=== PATIENT | male | born 1940 | race Caucasian/White ===

== ENCOUNTER 2023-06-11 18:50 | Inpatient (IN) | payer MEDICARE, BC ==
--- NOTE | 2023-06-11 19:17 | ED ---
General Adult HPI - General Chief complaint: Nausea/Vomiting/Diarrhea Stated complaint: Nausea, vomiting Time Seen by Provider: 06/11/23 19:02 Source: patient, EMS, RN notes reviewed Mode of arrival: EMS Limitations: no limitations - History of Present Illness Initial comments: Patient is a pleasant 82-year-old male present to the emergency department v omiting. Onset of symptoms was today. Patient states he vomited at breakfast. Patient states he also vomited a couple times after that. Patient states he feels hungry now. No abdominal pain. No diarrhea or constipation. Patient states he has an occasional cough which is chronic for him and denies any dyspnea. - Related Data Allergies Allergy/AdvReac Type Severity Reaction Status Date / Time No Known Allergies Allergy Verified 06/11/23 19:04 Review of Systems ROS Statement: Those systems with pertinent positive or pertinent negative responses have been documented in the HPI. ROS Other: All systems not noted in ROS Statement are negative. Constitutional: Denies: fever, chills Eyes: Denies: eye pain ENT: Denies: ear pain Respiratory: Reports: as per HPI Cardiovascular: Denies: chest pain Endocrine: Denies: fatigue Gastrointestinal: Reports: nausea, vomiting. Denies: abdominal pain, diarrhea, constipation Genitourinary: Denies: dysuria Musculoskeletal: Denies: back pain Neurological: Denies: headache Past Medical History Past Medical History: Heart Failure, Pneumonia Additional Past Medical History / Comment(s): pt is a poor historian History of Any Multi-Drug Resistant Organisms: None Reported Past Surgical History: No Surgical Hx Reported Smoking Status: Never smoker Past Alcohol Use History: Occasional Past Drug Use History: None Reported General Exam Limitations: no limitations General appearance: alert, in no apparent distress Head exam: Present: normocephalic Eye exam: Present: normal appearance Neck exam: Present: normal inspection Respiratory exam: Present: wheezes. Absent: respiratory distress Cardiovascular Exam: Present: regular rate, normal rhythm GI/Abdominal exam: Present: soft. Absent: tenderness Extremities exam: Present: pedal edema (+1 bilateral). Absent: calf tenderness Neurological exam: Present: alert Psychiatric exam: Present: normal affect, normal mood Skin exam: Present: normal color Course Vital Signs 06/11/23 06/11/23 06/11/23 18:56 19:04 20:03 Temperature 98.3 F Pulse Rate 94 90 Respiratory 18 Rate Blood Pressure 99/59 O2 Sat by Pulse 89 L 93 L Oximetry 06/11/23 20:13 Temperature Pulse Rate 79 Respiratory Rate Blood Pressure O2 Sat by Pulse Oximetry - Reevaluation(s) Reevaluation #1: 06/11/23 20:21 Case was discussed with cardiology, Dr. Nixon including present presentation and EKG. EKGs were forwarded to him. He does not want Legal Support Assistant activated at this time and will wait on blood work. Patient still denies ever having any chest discomfort. EKG Findings - EKG Results: EKG: interpreted by ERMD (Inferior Q waves with ST elevation. ST depression in aVL. Pseudo right bundle astrid block V1 V2), sinus rhythm, normal axis Medical Decision Making - Medical Decision Making Repeat EKG also interpreted by myself shows probable sinus rhythm with a rate of 89. Normal axis. Inferior Q waves with some ST elevation. ST depression in aVL. Pseudo right bundle branch block V1 V2. Was pt. sent in by a medical professional or institution (, PA, PROCESS IMPROVEMENT MANAGER, urgent care, hospital, or half-way...) When possible be specific @ -Patient was sent from senior care Did you speak to anyone other than the patient for history (EMS, parent, family, police, friend...)? What history was obtained from this source @ -No Did you review nursing and triage notes (agree or disagree)? Why? @ -I reviewed and agree with nursing and triage notes Were old charts reviewed (outside hosp., previous admission, EMS record, old EKG, old radiological studies, urgent care reports/EKG's, half-way records)? Report findings @ -No old chart is available Differential Diagnosis (chest pain, altered mental status, abdominal pain women, abdominal pain men, vaginal bleeding, weakness, fever, dyspnea, syncope, headache, dizziness, GI bleed, back pain, seizure, CVA, palpatations, mental health, musculoskeletal)? @ -Differential Abdominal Pain Men: Appendicitis, cholecystitis, diverticulosis, ischemic bowel, pancreatitis, hepatitis, UTI, gastroenteritis, AAA, incarcerated hernia, bowel obstruction, constipation, inflammatory bowel, hepatitis, peptic ulcer disease, splenic infarction, perforated viscus, testicular torsion, this is not meant to be an all-inclusive list e EKG interpreted by me (3pts min.). @ -As above X-rays interpreted by me (1pt min.). @ -Chest x-ray shows no acute process CT interpreted by me (1pt min.). @ -None done U/S interpreted by me (1pt. min.). @ -None done What testing was considered but not performed or refused? (CT, X-rays, U/S, labs)? Why? @ -None What meds were considered but not given or refused? Why? @ -None Did you discuss the management of the patient with other professionals (professionals i.e. , PA, PROCESS IMPROVEMENT MANAGER, lab, RT, psych nurse, social services coordinator, patternmaker metal bench, teacher, ict help desk officer, continuous pillowcase cutter)? Give summary @ -Discussed with Dr. Nixon. Also discussed with sound physician, Dr. Macias who will admit covering [place] Was smoking cessation discussed for >3mins.? @ -No Was critical care preformed (if so, how long)? @ -No Were there social determinants of health that impacted care today? How? (Homelessness, low income, unemployed, alcoholism, drug addiction, transportation, low edu. Level, literacy, decrease access to med. care, shelter, rehab)? @ -No Was there de-escalation of care discussed even if they declined (Discuss DNR or withdrawal of care, Hospice)? DNR status @ -No What co-morbidities impacted this encounter? (DM, HTN, Smoking, COPD, CAD, Cancer, CVA, ARF, Chemo, Hep., AIDS, mental health diagnosis, sleep apnea, mor bid obesity)? @ -None Was patient admitted / discharged? Hospital course, mention meds given and ro juan manuel, prescriptions, significant lab abnormalities, going to OR and other pertinent info. @ -Patient reevaluated. Patient still has nausea however still denies chest discomfort. Patient will be admitted with cardiac consult. Heparin will be started. Undiagnosed new problem with uncertain prognosis? @ -No Drug Therapy requiring intensive monitoring for toxicity (Heparin, Nitro, Insulin, Cardizem)? @ -Patient will be placed on heparin drip Were any procedures done? @ -No Diagnosis/symptom? @ -Vomiting Acute, or Chronic, or Acute on Chronic? @ -Acute Uncomplicated (without systemic symptoms) or Complicated (systemic symptoms)? @ -Complicated by potential r cardiac involvement Side effects of treatment? @ -No Exacerbation, Progression, or Severe Exacerbation? @ -No Poses a threat to life or bodily function? How? (Chest pain, [place], [place], pneumonia, PE, COPD, DKA, ARF, appy, cholecystitis, CVA, Diverticulitis, Homicidal, Suicidal, threat to staff... and all critical care pts) @ -Potential cardiac involvement that could be causing symptoms and lead to further cardiac damage or life-threatening There is concern for possible sepsis at 2056 with UTI and elevated white blood cell count. Blood culture lactic acid and IV antibiotics have all been ordered. - Lab Data Result diagrams: 06/11/23 19:46 06/11/23 19:46 Lab Results 06/11/23 06/11/23 06/11/23 Range/Units 19:46 19:46 19:46 WBC 32.0 H (3.8-10.6) k/uL RBC 4.21 L (4.30-5.90) m/uL Hgb 12.5 L (13.0-17.5) gm/dL Hct 37.5 L (39.0-53.0) % MCV 89.2 (80.0-100.0) fL MCH 29.7 (25.0-35.0) pg MCHC 33.3 (31.0-37.0) g/dL RDW 15.9 H (11.5-15.5) % Plt Count 210 (150-450) k/uL MPV 8.5 PT 10.9 (10.0-12.5) sec INR 1.0 (<1.2) APTT 23.6 (22.0-30.0) sec Sodium 139 (137-145) mmol/L Potassium 3.5 (3.5-5.1) mmol/L Chloride 101 (98-107) mmol/L Carbon Dioxide 32 H (22-30) mmol/L Anion Gap 6 mmol/L BUN 60 H (9-20) mg/dL Creatinine 2.46 H (0.66-1.25) mg/dL Est GFR (CKD-EPI)AfAm 28 (>60 ml/min/1.73 sqM) Est GFR (CKD-EPI)NonAf 24 (>60 ml/min/1.73 sqM) Glucose 124 H (74-99) mg/dL Calcium 8.6 (8.4-10.2) mg/dL Total Bilirubin 1.1 (0.2-1.3) mg/dL AST 25 (17-59) U/L ALT 12 (4-49) U/L Alkaline Phosphatase 82 (38-126) U/L Troponin I (0.000-0.034) ng/mL NT-Pro-B Natriuret Pep 23138 pg/mL Total Protein 6.4 (6.3-8.2) g/dL Albumin 3.4 L (3.5-5.0) g/dL Amylase 43 (30-110) U/L Lipase 44 (23-300) U/L Urine Color Urine Appearance (Clear) Urine pH (5.0-8.0) Ur Specific [place] (1.001-1.035) Urine Protein (Negative) Urine Glucose (UA) (Negative) Urine Ketones (Negative) Urine Blood (Negative) Urine Nitrite (Negative) Urine Bilirubin (Negative) Urine Urobilinogen (<2.0) mg/dL Ur Leukocyte Esterase (Negative) Urine RBC (0-5) /hpf Urine WBC (0-5) /hpf Amorphous Sediment (None) /hpf Urine Bacteria (None) /hpf Influenza Type A (PCR) (Not Detectd) Influenza Type B (PCR) (Not Detectd) RSV (PCR) (Not Detectd) SARS-CoV-2 (PCR) (Not Detectd) 06/11/23 06/11/23 06/11/23 Range/Units 19:46 19:46 19:46 WBC (3.8-10.6) k/uL RBC (4.30-5.90) m/uL Hgb (13.0-17.5) gm/dL Hct (39.0-53.0) % MCV (80.0-100.0) fL MCH (25.0-35.0) pg MCHC (31.0-37.0) g/dL RDW (11.5-15.5) % Plt Count (150-450) k/uL MPV PT (10.0-12.5) sec INR (<1.2) APTT (22.0-30.0) sec Sodium (137-145) mmol/L Potassium (3.5-5.1) mmol/L Chloride (98-107) mmol/L Carbon Dioxide (22-30) mmol/L Anion Gap mmol/L BUN (9-20) mg/dL Creatinine (0.66-1.25) mg/dL Est GFR (CKD-EPI)AfAm (>60 ml/min/1.73 sqM) Est GFR (CKD-EPI)NonAf (>60 ml/min/1.73 sqM) Glucose (74-99) mg/dL Calcium (8.4-10.2) mg/dL Total Bilirubin (0.2-1.3) mg/dL AST (17-59) U/L ALT (4-49) U/L Alkaline Phosphatase (38-126) U/L Troponin I 0.066 H* (0.000-0.034) ng/mL NT-Pro-B Natriuret Pep pg/mL Total Protein (6.3-8.2) g/dL Albumin (3.5-5.0) g/dL Amylase (30-110) U/L Lipase (23-300) U/L Urine Color Colorless Urine Appearance Cloudy (Clear) Urine pH 8.0 (5.0-8.0) Ur Specific [place] 1.010 (1.001-1.035) Urine Protein Trace H (Negative) Urine Glucose (UA) Negative (Negative) Urine Ketones Negative (Negative) Urine Blood Trace H (Negative) Urine Nitrite Negative (Negative) Urine Bilirubin Negative (Negative) Urine Urobilinogen <2.0 (<2.0) mg/dL Ur Leukocyte Esterase Large H (Negative) Urine RBC 5 (0-5) /hpf Urine WBC >182 H (0-5) /hpf Amorphous Sediment Rare H (None) /hpf Urine Bacteria Occasional H (None) /hpf Influenza Type A (PCR) Not Detected (Not Detectd) Influenza Type B (PCR) Not Detected (Not Detectd) RSV (PCR) Not Detected (Not Detectd) SARS-CoV-2 (PCR) Not Detected (Not Detectd) Disposition Clinical Impression: Vomiting Disposition: ADMITTED IP TO THIS HOSP Is patient prescribed a controlled substance at d/c from ED?: No Time of Disposition: 20:44
[2023-06-11] MEDS: IPRATROPIUM-ALBUTEROL 3 ML NEB INHALATION STA (20:03)
[2023-06-11 20:07] LABS: ALT 12 U/L (4-49); AST 25 U/L (17-59); African American GFR (CKD) 28 (>60 ml/min/1.73 sqM); Albumin 3.4 g/dL (3.5-5.0); Alkaline Phosphatase 82 U/L (38-126); Amylase 43 U/L (30-110); Anion Gap 6 mmol/L; Blood Urea Nitrogen 60 mg/dL (9-20); Calcium 8.6 mg/dL (8.4-10.2); Carbon Dioxide 32 mmol/L (22-30); Chloride 101 mmol/L (98-107); Glucose 124 mg/dL (74-99); Lipase 44 U/L (23-300); Non-African American GFR(CKD) 24 (>60 ml/min/1.73 sqM); Potassium 3.5 mmol/L (3.5-5.1); Sodium 139 mmol/L (137-145); Total Bilirubin 1.1 mg/dL (0.2-1.3); Total Protein 6.4 g/dL (6.3-8.2)
[2023-06-11 20:10] LABS: Partial Thromboplastin Time 23.6 sec (22.0-30.0); Prothrombin Time 10.9 sec (10.0-12.5)
[2023-06-11 20:15] LABS: NT-Pro-B-Type Natriuretic Pept 10500 pg/mL
[2023-06-11] MEDS: ONDANSETRON 4 MG/2 ML VIAL IVP STA (20:22)
[2023-06-11] MEDS: FAMOTIDINE 20 MG/2 ML VIAL IV STA (20:23)
--- NOTE | 2023-06-11 20:35 | XR ---
EXAMINATION TYPE: XR chest 1V portable DATE OF EXAM: 06/11/2023 8:23 PM CLINICAL INDICATION:Male, 82 years old with history of abdominal pain; COMPARISON: None TECHNIQUE: XR chest 1V portable Frontal view of the chest. FINDINGS: Lungs/Pleura: There is no evidence of pleural effusion, focal consolidation, or pneumothorax. Pulmonary vascularity: Unremarkable. Heart/mediastinum: Cardiomediastinal silhouette is unremarkable. Musculoskeletal: No acute osseous pathology. IMPRESSION: No acute cardiopulmonary disease/process.
[2023-06-11 20:37] LABS: Basophils # (A) 0.1 k/uL (0-0.2); Basophils % (A) 0 %; Eosinophils # (A) 0.1 k/uL (0-0.7); Eosinophils % (A) 0 %; HCT 37.5 % (39.0-53.0); HGB 12.5 gm/dL (13.0-17.5); Lymphocytes # (A) 1.2 k/uL (1.0-4.8); Lymphocytes % (A) 4 %; MCH 29.7 pg (25.0-35.0); MCHC 33.3 g/dL (31.0-37.0); MCV 89.2 fL (80.0-100.0); Mean Platelet Volume 8.5; Monocytes # (A) 2.3 k/uL (0-1.0); Monocytes % (A) 7 %; Neutrophils # (A) 27.6 k/uL (1.3-7.7); Neutrophils % (A) 86 %; Platelet Count 210 k/uL (150-450); RBC 4.21 m/uL (4.30-5.90); RDW 15.9 % (11.5-15.5)
[2023-06-11] MEDS ORDERED: HEPARIN SODIUM 1,000 UN/ML (10ML VL) IV PRN (20:45)
[2023-06-11] MEDS ORDERED: NALOXONE 0.4 MG/ML 1 ML VIAL IV PRN (20:45)
[2023-06-11] MEDS ORDERED: ONDANSETRON 4 MG/2 ML VIAL IVP PRN (20:45)
[2023-06-11 20:52] LABS: Amorphous Sediment,Urine Rare /hpf; Appearance,Urine Cloudy (Clear); Bacteria,Urine Occasional /hpf; Bilirubin,Urine Negative (Negative); Blood,Urine Trace (Negative); Color,Urine Colorless; Glucose,Urine (UA) Negative (Negative); Ketones,Urine Negative (Negative); Leukocyte Esterase,Urine Large (Negative); Nitrite,Urine Negative (Negative); Protein,Urine Trace (Negative); RBC,Urine 5 /hpf (0-5); Urobilinogen,Urine <2.0 mg/dL (<2.0); WBC,Urine >182 /hpf (0-5)
[2023-06-11] MEDS: HEPARIN SODIUM 1,000 UN/ML (10ML VL) IV ONE (21:26)
[2023-06-11] MEDS: HEPARIN SOD,PORK IN 0.45% NACL 25,000 UNIT in 0.45% NACL 1 250ML.BAG IV SCH (21:27)
[2023-06-11] MEDS: SODIUM CHLORIDE 0.9% 1,000 ML IV SCH (21:28)
[2023-06-11] MEDS: PANTOPRAZOLE 40 MG/10 ML VIAL IV SCH (21:42)
[2023-06-12 02:36] LABS: Basophils # (A) 0.1 k/uL (0-0.2); Basophils % (A) 0 %; Eosinophils # (A) 0.1 k/uL (0-0.7); Eosinophils % (A) 0 %; HGB 10.9 gm/dL (13.0-17.5); Lymphocytes # (A) 1.3 k/uL (1.0-4.8); Lymphocytes % (A) 5 %; MCH 28.7 pg (25.0-35.0); MCV 89.8 fL (80.0-100.0); Mean Platelet Volume 8.2; Monocytes # (A) 1.2 k/uL (0-1.0); Monocytes % (A) 5 %; Neutrophils # (A) 22.7 k/uL (1.3-7.7); Neutrophils % (A) 89 %; Platelet Count 191 k/uL (150-450); RBC 3.79 m/uL (4.30-5.90); RDW 15.7 % (11.5-15.5); WBC 25.6 k/uL (3.8-10.6)
[2023-06-12 03:40] LABS: INR 1.1 (<1.2); Prothrombin Time 12.2 sec (10.0-12.5)
[2023-06-12 03:45] LABS: ALT 12 U/L (4-49); AST 20 U/L (17-59); African American GFR (CKD) 25 (>60 ml/min/1.73 sqM); Albumin 2.9 g/dL (3.5-5.0); Alkaline Phosphatase 72 U/L (38-126); Anion Gap 7 mmol/L; Blood Urea Nitrogen 58 mg/dL (9-20); Calcium 7.7 mg/dL (8.4-10.2); Carbon Dioxide 32 mmol/L (22-30); Chloride 102 mmol/L (98-107); Glucose 121 mg/dL (74-99); Non-African American GFR(CKD) 22 (>60 ml/min/1.73 sqM); Sodium 141 mmol/L (137-145); Total Bilirubin 0.7 mg/dL (0.2-1.3); Total Protein 5.7 g/dL (6.3-8.2)
[2023-06-12 03:52] LABS: Partial Thromboplastin Time 153.2 sec (22.0-30.0)
[2023-06-12 04:00] LABS: Potassium 2.7 mmol/L (3.5-5.1)
[2023-06-12] MEDS: SODIUM CHLORIDE 0.9% 1,000 ML IV SCH (04:29)
[2023-06-12] MEDS: POTASSIUM CHLORIDE 10 MEQ in WATER FOR INJECTION 1 100ML.BAG IVPB SCH (04:29)
--- NOTE | 2023-06-12 06:00 | P.HPIM ---
History of Present Illness H&P Date: 06/11/23 Chief Complaint: Evaluation for not feeling wellVomiting 82-year-old male with past medical history of CVA congestive heart failure Patient is a poor historian unable to provide any meaningful history at this time family not present at bedside History obtained by reviewing medical records and discussing the case with ED staff, patient was brought in for evaluation due to not feeling well today as he had some decreased p.o. intake and repeated vomiting throughout the day especially with meals. His daughter also noted worsening of his chronic cough for which she decided to bring him in for evaluation Patient when asked has no specific complaint he seems to be frustrated and upset for being in the hospital he reports that he is feeling well and should be sent home patient denies any headache chest pain or trouble breathing patient denies any nausea or vomiting denies any abdominal pain denies any changes in bowel or urinary habits Patient denies tobacco smoking illicit drugs or heavy alcohol review of systems Pertinent positives as noted in HPI. All other systems were reviewed and are negative on exam Constitutional: No acute distress, cooperative Eyes: Anicteric sclerae, moist conjunctiva, Pupils equal round reactive to light ENMT: NC/AT Oropharynx clear, no erythema, or exudates Neck: Supple, no masses, or JVD No carotid bruits No thyromegaly Lungs: Clear to auscultation Clear to percussion Normal respiratory effort, no accessory muscle use Cardiovascular: Heart regular in rate and rhythm, No murmurs, gallops, or rubs No peripheral edema Abdominal: Soft Nontender, no guarding, rebound or rigidity Abdomen moving with respiration Normoactive bowel sounds Skin: Dry skin of bilateral lower extremities Extremities: No digital cyanosis No clubbing Pedal pulses intact and symmetrical Radial pulses intact and symmetrical No calf tenderness Psychiatric: Alert and oriented to person, place Neuro Muscles Strength 4/5 in all 4 extremities Sensation to light touch grossly present throughout Cranial nerves II-XII grossly intact Past Medical History Past Medical History: Heart Failure, CVA/TIA, Dementia, GERD/Reflux, Hyperlipidemia, Hypertension, Memory Impairment, Pneumonia Additional Past Medical History / Comment(s): . History of Any Multi-Drug Resistant Organisms: None Reported Past Surgical History: No Surgical Hx Reported Smoking Status: Never smoker Past Alcohol Use History: None Reported Past Drug Use History: None Reported Medications and Allergies Home Medications Medication Instructions Recorded Confirmed Type Atorvastatin [Lipitor] 80 mg PO HS 06/11/23 06/11/23 History Clopidogrel [Plavix] 75 mg PO DAILY 06/11/23 06/11/23 History Divalproex [Depakote] 250 mg PO DAILY@1400 06/11/23 06/11/23 History Famotidine [Pepcid] 20 mg PO DAILY 06/11/23 06/11/23 History Furosemide [Lasix] 20 mg PO DAILY 06/11/23 06/11/23 History Lactulose [Constulose] 30 gm PO BID 06/11/23 06/11/23 History Levothyroxine Sodium 25 mcg PO DAILY 06/11/23 06/11/23 History Losartan Potassium 50 mg PO HS 06/11/23 06/11/23 History Rivastigmine Tartrate [Exelon] 4.5 mg PO BID 06/11/23 06/11/23 History metOLazone 5 mg PO [id number] 06/11/23 06/11/23 History Allergies Allergy/AdvReac Type Severity Reaction Status Date / Time No Known Allergies Allergy Verified 06/11/23 19:04 Physical Exam Vitals: Vital Signs Temp Pulse Pulse Resp BP BP Pulse Ox 06/12/23 00:00 97.4 F L 89 18 104/69 99 06/11/23 21:33 84 20 102/60 97 06/11/23 20:13 79 06/11/23 20:03 90 06/11/23 19:04 93 L 06/11/23 18:56 98.3 F 94 18 99/59 89 L Intake and Output 06/11/23 06/11/23 06/12/23 14:59 22:59 06:59 Output Total 650 Balance -650 Output: Urine 650 Other: Voiding Method Indwelling Catheter Weight 112.945 kg 112.945 kg Results CBC & Chem 7: 06/12/23 02:22 06/12/23 02:22 Labs: Abnormal Lab Results - Last 24 Hours (Table) 06/11/23 06/11/23 06/11/23 Range/Units 19:46 19:46 19:46 WBC 32.0 H (3.8-10.6) k/uL RBC 4.21 L (4.30-5.90) m/uL Hgb 12.5 L (13.0-17.5) gm/dL Hct 37.5 L (39.0-53.0) % RDW 15.9 H (11.5-15.5) % Neutrophils # 27.6 H (1.3-7.7) k/uL Monocytes # 2.3 H (0-1.0) k/uL Carbon Dioxide 32 H (22-30) mmol/L BUN 60 H (9-20) mg/dL Creatinine 2.46 H (0.66-1.25) mg/dL Glucose 124 H (74-99) mg/dL Plasma Lactic Acid [place] (0.7-2.0) mmol/L Troponin I 0.066 H* (0.000-0.034) ng/mL Albumin 3.4 L (3.5-5.0) g/dL Urine Protein (Negative) Urine Blood (Negative) Ur Leukocyte Esterase (Negative) Urine WBC (0-5) /hpf Amorphous Sediment (None) /hpf Urine Bacteria (None) /hpf 06/11/23 06/11/23 06/12/23 Range/Units 19:46 21:31 00:35 WBC (3.8-10.6) k/uL RBC (4.30-5.90) m/uL Hgb (13.0-17.5) gm/dL Hct (39.0-53.0) % RDW (11.5-15.5) % Neutrophils # (1.3-7.7) k/uL Monocytes # (0-1.0) k/uL Carbon Dioxide (22-30) mmol/L BUN (9-20) mg/dL Creatinine (0.66-1.25) mg/dL Glucose (74-99) mg/dL Plasma Lactic Acid [place] 2.4 H* (0.7-2.0) mmol/L Troponin I 0.127 H* (0.000-0.034) ng/mL Albumin (3.5-5.0) g/dL Urine Protein Trace H (Negative) Urine Blood Trace H (Negative) Ur Leukocyte Esterase Large H (Negative) Urine WBC >182 H (0-5) /hpf Amorphous Sediment Rare H (None) /hpf Urine Bacteria Occasional H (None) /hpf 06/12/23 06/12/23 Range/Units 02:22 02:22 WBC 25.6 H (3.8-10.6) k/uL RBC 3.79 L (4.30-5.90) m/uL Hgb 10.9 L (13.0-17.5) gm/dL Hct 34.0 L (39.0-53.0) % RDW 15.7 H (11.5-15.5) % Neutrophils # 22.7 H (1.3-7.7) k/uL Monocytes # 1.2 H (0-1.0) k/uL Carbon Dioxide (22-30) mmol/L BUN (9-20) mg/dL Creatinine (0.66-1.25) mg/dL Glucose (74-99) mg/dL Plasma Lactic Acid [place] 2.4 H* (0.7-2.0) mmol/L Troponin I (0.000-0.034) ng/mL Albumin (3.5-5.0) g/dL Urine Protein (Negative) Urine Blood (Negative) Ur Leukocyte Esterase (Negative) Urine WBC (0-5) /hpf Amorphous Sediment (None) /hpf Urine Bacteria (None) /hpf Thrombosis Risk Factor Assmnt - Choose All That Apply Each Factor Represents 1 point: Obesity (BMI >25), Swollen legs (current) Each Risk Factor Represents 3 Points: Age 75 years or older Thrombosis Risk Factor Assessment Total Risk Factor Score: 5 Thrombosis Risk Factor Assessment Level: High Risk Assessment and Plan Assessment: 82-year-old male with CVA, CHF, and dementia coming in as he was brought in by family for evaluation of repeated vomiting and not feeling well I discussed case with ED doctor and accepted the admission for severe sepsis secondary to UTI with acute kidney injury with anticipated length of stay more than 2 midnights Acute hypoxic respiratory failure Severe sepsis secondary to urinary tract infection UA positive for leukocyte esterase White count 32 heart rate upon presentation 94 Follow-up cultures Patient was started on Rocephin 2 g IV piggyback daily Supportive care Tylenol for fever IV fluid hydration normal saline 75 cc/h Chest x-ray no acute cardiopulmonary process Elevated troponin rule out NSTEMI Cardiology consult Cardiac monitoring Monitor vital signs EKG changes with ST elevation in inferior leads over lead III was discussed with cardiology no recommendations for immediate intervention at this time Continue with heparin drip Continue with aspirin Plavix and statin home medications Fall precautions Continue to trend troponins Acute kidney injury versus a component of CKD unknown baseline Creatinine 2.4 elevated BUN 60 Sodium 139 potassium 3.5 Suspect some component of dehydration Lactic acid 2.4 Start patient on IV fluid hydration with normal saline 75 cc/h due to history of CHF to avoid fluid overload Hold losartan due to unknown baseline renal function Hypokalemia Potassium 2.7 Replace IV 10 mEq/h x 4 Check potassium level and magnesium level in the morning Advanced dementia Fall precautions Continue Depakote Full code DVT prophylaxis on heparin drip for ACS protocol GI prophylaxis with Protonix 40 mg IV push daily
[2023-06-12] MEDS: LEVOTHYROXINE 25 MCG TAB PO SCH (06:30)
[2023-06-12 06:57] LABS: HCT 32.6 % (39.0-53.0); HGB 10.9 gm/dL (13.0-17.5); MCH 29.4 pg (25.0-35.0); MCHC 33.5 g/dL (31.0-37.0); MCV 87.9 fL (80.0-100.0); Mean Platelet Volume 8.4; Platelet Count 180 k/uL (150-450); RBC 3.71 m/uL (4.30-5.90); RDW 15.9 % (11.5-15.5); WBC 26.8 k/uL (3.8-10.6)
[2023-06-12 07:26] LABS: African American GFR (CKD) 24 (>60 ml/min/1.73 sqM); Anion Gap 10 mmol/L; Blood Urea Nitrogen 65 mg/dL (9-20); Calcium 7.9 mg/dL (8.4-10.2); Carbon Dioxide 30 mmol/L (22-30); Chloride 99 mmol/L (98-107); Glucose 118 mg/dL (74-99); Magnesium 2.2 mg/dL (1.6-2.3); Non-African American GFR(CKD) 21 (>60 ml/min/1.73 sqM); Potassium 3.4 mmol/L (3.5-5.1); Sodium 139 mmol/L (137-145)
[2023-06-12 07:51] LABS: Band Neutrophils % 5 %; Lymphocytes # (M) 1.07 k/uL (1.0-4.8); Metamyelocytes # (M) 1.07 k/uL (0); Metamyelocytes % 4 %; Monocytes # (M) 1.07 k/uL (0-1.0); Myelocytes # (M) 0.27 k/uL (0); Myelocytes % 1 %; Neutrophils % (M) 83 %; Nucleated Red Blood Cells 0 /100 WBC (0-0); Total Cells Counted 200
[2023-06-12] MEDS ORDERED: POTASSIUM CHLORIDE ER 20 MEQ TAB.ER PO STA (08:08)
[2023-06-12] MEDS ORDERED: metOLazone 5 MG TAB PO SCH (08:30)
[2023-06-12] MEDS ORDERED: FAMOTIDINE 20 MG TAB PO SCH (09:00)
[2023-06-12] MEDS: FUROSEMIDE 20 MG TAB PO SCH (09:22)
[2023-06-12] MEDS: ASPIRIN 81 MG PO SCH (09:22)
[2023-06-12] MEDS: CLOPIDOGREL 75 MG TAB PO SCH (09:22)
[2023-06-12] MEDS: LACTULOSE 20 GM/30 ML CUP PO SCH (09:23)
[2023-06-12] MEDS: RIVASTIGMINE TARTRATE 4.5 MG PO SCH (09:23)
--- NOTE | 2023-06-12 10:42 | P.PN ---
Subjective Progress Note Date: 06/12/23 82-year-old male with PMH of CHF, history of CVA, dementia, GERD, hypertension, dyslipidemia presents to the ED for decreased oral intake, nausea and vomiting throughout the day, worsening cough. In the ED, he underwent extensive evaluation. BP 99/59, HR 94, RR 18, T 98.3 F, 89% on RA. CBC showed WBC count 32, hemoglobin 12.5, hematocrit 37.5. Coag panel unremarkable. CMP showed bicarb 32, BUN 60, creatinine 2.46, glucose 124, albumin 3.4. Lactic acid 2.4. Troponin 0.066, 0.127, 0.145. BNP 39331. Urinalysis large leukocyte esterase with greater than 182 WBCs. Flu, RSV, COVID-[address] negative. [address] concerning for ST elevation in leads II III and AVF. CXR no acute process. Repeat CBC, Coag panel, CMP was done which was significant for WBC 25.6, hemoglobin 10.9, hematocrit 34, APTT 153.2, potassium 2.7, bicarb 32, BUN 58, creatinine 2.66, glucose 121, calcium 7.7, albumin 2.9. Mag 2.2. Lactic acid 2.4. Case was discussed with cardiology in the ED with no recommendations for immediate intervention at this time. Patient was started on Rocephin, IVF, heparin drip and admitted for further management and workup. 06/11 Patient was seen and examined. Lethargic but arousable. CBC WBC 26.8 Hg 10. 9 Hct 32.6. BMP K 3.4 BUN 65 Cr 2.77, glu 118, Ca 7.9. Lactic acid 1.4. Maintained on heparin drip. General: lethargic, no distress, appears at stated age Derm: warm, dry Head: atraumatic, normocephalic, symmetric Eyes: EOMI, no lid lag, anicteric sclera Mouth: no lip lesion, mucus membranes moist Cardiovascular: S1S2 reg, no murmur Lungs: CTA bilateral, no rhonchi, no rales , no accessory muscle use Abdominal: soft, nontender to palpation, no guarding, no appreciable organomegaly Ext: no gross muscle atrophy, no edema, no contractures Neuro: no focal neuro deficits Psych: Lethargic Based on my assessment of this patient, this patient meets a high complexity level of care. Patient has an acute diagnosis of UTI sepsis with EKG findings concerning for STEMI that poses a threat to life or bodily function. UTI sepsis: Rocephin 2g IV QD. Follow BCx. UCx ordered. NS at 75 cc/hr. Telemetr y monitoring. Troponin elevation with EKG concerning for ST elevation of leads II III AVF: Continue heparin drip at 12 units/kg/hr. ASA 81 mg PO QD. Plavix 75 mg PO QD. Lipitor 80 mg PO QHS. Echocardiogram ordered. Patient would benefit from beta mando and likely cath give EKG findings. Awaiting Cardiology recommendations. Severe hypokalemia: Status post 40 KCl meq IV. KCl 40 meq PO x 1 ordered today. JACKELYN on probable CKD: IV hydration as above. Judicious use of IVF given h/o CHF (unknown EF). Obtain Renal/bladder US. Chronic conditions: CHF, history of CVA, dementia, GERD, hypertension, dy slipidemia CODE STATUS: FULL CODE. DVT Prophylaxis: Heparin drip. GI Prophylaxis: Protonix IV Designated medical POA if patient is not able to make medical decisions for themselves: I have reviewed the following executive consultant notes: I have reviewed the results of the following tests: CBC, BMP, Lactic acid. I have ordered the following tests: Echo. UCx. CBC and BMP for tomorrow morning. I have discussed the care of this patient with the following independent historian: I have independently interpreted the following test below: EKG I have discussed the management of this patient with the following physician: Dr. Nixon. This patient has a high risk of morbidity due to the following reasons: Patient requires IV heparin which requires intensive monitoring for toxicity (coag panel) and bleeding. Objective - Vital Signs Vital signs: Vital Signs Temp 98.8 F 06/12/23 04:00 Pulse 70 06/12/23 04:00 Resp 18 06/12/23 04:00 BP 99/55 06/12/23 04:00 Pulse Ox 95 06/12/23 04:00 FiO2 Intake & Output 06/11/23 06/12/23 06/12/23 18:59 06:59 18:59 Intake Total 86.965 Output Total 950 Balance -863.035 Weight 112.945 kg 112.945 kg Intake: Intake, IV Titration 86.965 Amount Heparin Sod,Pork in 0.45% 86.965 NaCl 25,000 unit In 0.45 % NaCl 1 250ml.bag @ 12 UNITS/KG/HR 13.553 mls/hr IV .[id number] [facility] Rx#: [id number] Output: Urine 950 Other: Voiding Method Indwelling Catheter - Labs CBC & Chem 7: 06/12/23 06:43 06/12/23 06:43 Labs: Abnormal Lab Results - Last 24 Hours (Table) 06/11/23 06/11/23 06/11/23 Range/Units 19:46 19:46 19:46 WBC 32.0 H (3.8-10.6) k/uL RBC 4.21 L (4.30-5.90) m/uL Hgb 12.5 L (13.0-17.5) gm/dL Hct 37.5 L (39.0-53.0) % RDW 15.9 H (11.5-15.5) % Neutrophils # 27.6 H (1.3-7.7) k/uL Monocytes # 2.3 H (0-1.0) k/uL APTT (22.0-30.0) sec Potassium (3.5-5.1) mmol/L Carbon Dioxide 32 H (22-30) mmol/L BUN 60 H (9-20) mg/dL Creatinine 2.46 H (0.66-1.25) mg/dL Glucose 124 H (74-99) mg/dL Plasma Lactic Acid Collin (0.7-2.0) mmol/L Calcium (8.4-10.2) mg/dL Troponin I 0.066 H* (0.000-0.034) ng/mL Total Protein (6.3-8.2) g/dL Albumin 3.4 L (3.5-5.0) g/dL Urine Protein (Negative) Urine Blood (Negative) Ur Leukocyte Esterase (Negative) Urine WBC (0-5) /hpf Amorphous Sediment (None) /hpf Urine Bacteria (None) /hpf 06/11/23 06/11/23 06/12/23 Range/Units 19:46 21:31 00:35 WBC (3.8-10.6) k/uL RBC (4.30-5.90) m/uL Hgb (13.0-17.5) gm/dL Hct (39.0-53.0) % RDW (11.5-15.5) % Neutrophils # (1.3-7.7) k/uL Monocytes # (0-1.0) k/uL APTT (22.0-30.0) sec Potassium (3.5-5.1) mmol/L Carbon Dioxide (22-30) mmol/L BUN (9-20) mg/dL Creatinine (0.66-1.25) mg/dL Glucose (74-99) mg/dL Plasma Lactic Acid Collin 2.4 H* (0.7-2.0) mmol/L Calcium (8.4-10.2) mg/dL Troponin I 0.127 H* (0.000-0.034) ng/mL Total Protein (6.3-8.2) g/dL Albumin (3.5-5.0) g/dL Urine Protein Trace H (Negative) Urine Blood Trace H (Negative) Ur Leukocyte Esterase Large H (Negative) Urine WBC >182 H (0-5) /hpf Amorphous Sediment Rare H (None) /hpf Urine Bacteria Occasional H (None) /hpf 06/12/23 06/12/23 06/12/23 Range/Units 02:22 02:22 02:22 WBC 25.6 H (3.8-10.6) k/uL RBC 3.79 L (4.30-5.90) m/uL Hgb 10.9 L (13.0-17.5) gm/dL Hct 34.0 L (39.0-53.0) % RDW 15.7 H (11.5-15.5) % Neutrophils # 22.7 H (1.3-7.7) k/uL Monocytes # 1.2 H (0-1.0) k/uL APTT 153.2 H* (22.0-30.0) sec Potassium (3.5-5.1) mmol/L Carbon Dioxide (22-30) mmol/L BUN (9-20) mg/dL Creatinine (0.66-1.25) mg/dL Glucose (74-99) mg/dL Plasma Lactic Acid Collin (0.7-2.0) mmol/L Calcium (8.4-10.2) mg/dL Troponin I 0.145 H* (0.000-0.034) ng/mL Total Protein (6.3-8.2) g/dL Albumin (3.5-5.0) g/dL Urine Protein (Negative) Urine Blood (Negative) Ur Leukocyte Esterase (Negative) Urine WBC (0-5) /hpf Amorphous Sediment (None) /hpf Urine Bacteria (None) /hpf 06/12/23 06/12/23 06/12/23 Range/Units 02:22 02:22 06:43 WBC 26.8 H (3.8-10.6) k/uL RBC 3.71 L (4.30-5.90) m/uL Hgb 10.9 L (13.0-17.5) gm/dL Hct 32.6 L (39.0-53.0) % RDW 15.9 H (11.5-15.5) % Neutrophils # (1.3-7.7) k/uL Monocytes # (0-1.0) k/uL APTT (22.0-30.0) sec Potassium 2.7 L* (3.5-5.1) mmol/L Carbon Dioxide 32 H (22-30) mmol/L BUN 58 H (9-20) mg/dL Creatinine 2.66 H (0.66-1.25) mg/dL Glucose 121 H (74-99) mg/dL Plasma Lactic Acid Collin 2.4 H* (0.7-2.0) mmol/L Calcium 7.7 L (8.4-10.2) mg/dL Troponin I (0.000-0.034) ng/mL Total Protein 5.7 L (6.3-8.2) g/dL Albumin 2.9 L (3.5-5.0) g/dL Urine Protein (Negative) Urine Blood (Negative) Ur Leukocyte Esterase (Negative) Urine WBC (0-5) /hpf Amorphous Sediment (None) /hpf Urine Bacteria (None) /hpf 06/12/23 Range/Units 06:43 WBC (3.8-10.6) k/uL RBC (4.30-5.90) m/uL Hgb (13.0-17.5) gm/dL Hct (39.0-53.0) % RDW (11.5-15.5) % Neutrophils # (1.3-7.7) k/uL Monocytes # (0-1.0) k/uL APTT (22.0-30.0) sec Potassium 3.4 L (3.5-5.1) mmol/L Carbon Dioxide (22-30) mmol/L BUN 65 H (9-20) mg/dL Creatinine 2.77 H (0.66-1.25) mg/dL Glucose 118 H (74-99) mg/dL Plasma Lactic Acid Collin (0.7-2.0) mmol/L Calcium 7.9 L (8.4-10.2) mg/dL Troponin I (0.000-0.034) ng/mL Total Protein (6.3-8.2) g/dL Albumin (3.5-5.0) g/dL Urine Protein (Negative) Urine Blood (Negative) Ur Leukocyte Esterase (Negative) Urine WBC (0-5) /hpf Amorphous Sediment (None) /hpf Urine Bacteria (None) /hpf
[2023-06-12] MEDS ORDERED: Potassium Replacement Protocol 1 EACH MISC MISCELLANE PRN (11:10)
--- NOTE | 2023-06-12 12:38 | P.CRDCN ---
History of Present Illness Consult date: 06/12/23 Requesting physician: Sudeep Stone Reason for Consult (text): Cardiac Evaluation and Treatment Chief complaint: vomiting History of present illness: This is a pleasant 82-year-old gentleman with advanced dementia. He is quite confused and unable to answer questions appropriately and family is not at the bedside. HPI was obtained from the chart. He has a history of hypertension, dementia, CVA and congestive heart failure. He was apparently brought to the emergency department due to episodes of vomiting. Shortly after presentation the patient apparently said he was feeling better and requested to be sent home. Chest x-ray on admission showed no acute cardiopulmonary process. Labs showed significantly elevated white blood cell count 32,000. Labs also showed evidence of renal insufficiency, of unknown duration as there are no labs to compare with a BUN of 60 creatinine 2.46. NT proBNP is elevated at 10,500. Plasma lactic acid was 2.4. Urine shows evidence of UTI. Troponins been elevated at 0.066, 0.127, 0.145 and 0.162. There is no mention of chest discomfort and patient denies any complaints of chest discomfort. He has been afebrile and somewhat hypotensive. Upon examination he currently denies any complaints. He denies further vomiting. Denies any chest discomfort, palpitations, shortness of breath. He denies any orthopnea or PND. He denies any dizziness lightheadedness or syncope. Past Medical History Past Medical History: Heart Failure, CVA/TIA, Dementia, GERD/Reflux, Hyperlipidemia, Hypertension, Memory Impairment, Pneumonia Additional Past Medical History / Comment(s): . History of Any Multi-Drug Resistant Organisms: None Reported Past Surgical History: No Surgical Hx Reported Smoking Status: Never smoker Past Alcohol Use History: None Reported Past Drug Use History: None Reported Medications and Allergies Home Medications Medication Instructions Recorded Confirmed Type Atorvastatin [Lipitor] 80 mg PO HS@199906/11/23 06/12/23 History Clopidogrel [Plavix] 75 mg PO DAILY@79906/11/23 06/12/23 History Divalproex [Depakote] 250 mg PO DAILY@1400 06/11/23 06/12/23 History Famotidine [Pepcid] 20 mg PO DAILY@0806/11/23 06/12/23 History Furosemide [Lasix] 20 mg PO DAILY@0800 06/11/23 06/12/23 History Lactulose [Constulose] 20 gm PO BID@0800,199906/11/23 06/12/23 History Levothyroxine Sodium 25 mcg PO DAILY@0800 06/11/23 06/12/23 History Losartan Potassium 50 mg PO HS@199906/11/23 06/12/23 History Rivastigmine Tartrate [Exelon] 4.5 mg PO BID@08,199906/11/23 06/12/23 History metOLazone 5 mg PO DAILY@0730 06/11/23 06/12/23 History Acetaminophen Tab [Tylenol] 325 mg PO BID@0800,199906/12/23 06/12/23 History Ammonium Lactate Cream [Lac-Hydrin 1 applic TOPICAL BID@08,199906/12/23 06/12/23 History 12% Cream] Ascorbic Acid [Vitamin C] 1,000 mg PO BID@0800,199906/12/23 06/12/23 History Aspirin EC [Ecotrin Low Dose] 81 mg PO DAILY@0800 06/12/23 06/12/23 History Cholecalciferol [Vitamin D3 (125 125 mcg PO DAILY@0800 06/12/23 06/12/23 History Mcg = 5000 Iu)] Cranberry 450mg 450 mg PO BID@08,199906/12/23 06/12/23 History Lidocaine-Hydrocortisone 3-0.5% 1 applic RECTAL QID PRN 06/12/23 06/12/23 History Rectal Cream Liquacel 30 ml PO BID@08,199906/12/23 06/12/23 History Potassium Chloride ER [K-Dur 10] 10 meq PO DAILY@0800 06/12/23 06/12/23 History Sennosides/Docusate Sodium 2 tab PO BID@08,199906/12/23 06/12/23 History [Senna-S 8.6-50 mg Tablet] buPROPion [Wellbutrin] 100 mg PO DAILY@0800 06/12/23 06/12/23 History carvediloL [Coreg] 12.5 mg PO BID@0800,199906/12/23 06/12/23 History Allergies Allergy/AdvReac Type Severity Reaction Status Date / Time No Known Allergies Allergy Verified 06/12/23 08:37 Physical Exam Vitals: Vital Signs Temp Pulse Pulse Resp BP BP Pulse Ox 06/12/23 04:00 98.8 F 70 18 99/55 95 06/12/23 00:00 97.4 F L 89 18 104/69 99 06/11/23 21:33 84 20 102/60 97 06/11/23 20:13 79 06/11/23 20:03 90 06/11/23 19:04 93 L 06/11/23 18:56 98.3 F 94 18 99/59 89 L Intake and Output 06/11/23 06/12/23 06/12/23 22:59 06:59 14:59 Intake Total 86.965 Output Total 650 300 Balance -650 -213.035 Intake: Intake, IV Titration 86.965 Amount Heparin Sod,Pork in 0.45% 86.965 NaCl 25,000 unit In 0.45 % NaCl 1 250ml.bag @ 12 UNITS/KG/HR 13.553 mls/hr IV .[id number] [facility] Rx#: [id number] Output: Urine 650 300 Other: Voiding Method Indwelling Catheter Weight 112.945 kg 112.945 kg PHYSICAL EXAMINATION: This is a 82-year-old gentleman in no apparent distress at the time of my examination. VITAL SIGNS: Reviewed. HEENT: Head is atraumatic, normocephalic. Pupils are equal, round. Sclerae anicteric. Conjunctivae are clear. Mucous membranes of the mouth are moist. Neck is supple. [There is no elevated jugular venous pressure]. No carotid bruit is heard. CHEST EXAMINATION:[ Clear to auscultation bilaterally. No wheezes rales or rhonchi. Respirations even and nonlabored.] HEART EXAMINATION: [ Heart regular, positive S1 and S2. No S3. No S4. Systolic murmur. ] ABDOMEN: Soft, nontender. Bowel sounds are heard. No organomegaly noted. EXTREMITIES:[ 2+ peripheral pulses with evidence of trace peripheral edema and no calf tenderness noted]. NEUROLOGIC EXAMINATION: Patient is awake, alert and oriented x1. Results 06/12/23 06:43 06/12/23 06:43 Cardiac Enzymes 06/11/23 06/11/23 06/12/23 Range/Units 19:46 19:46 00:35 AST 25 (17-59) U/L Troponin I 0.066 H* 0.127 H* (0.000-0.034) ng/mL 06/12/23 06/12/23 06/12/23 Range/Units 02:22 02:22 06:43 AST 20 (17-59) U/L Troponin I 0.145 H* 0.162 H* (0.000-0.034) ng/mL Coagulation 06/11/23 06/12/23 Range/Units 19:46 02:22 PT 10.9 12.2 (10.0-12.5) sec APTT 23.6 153.2 H* (22.0-30.0) sec CBC 06/11/23 06/12/23 06/12/23 Range/Units 19:46 02:22 06:43 WBC 32.0 H 25.6 H 26.8 H (3.8-10.6) k/uL RBC 4.21 L 3.79 L 3.71 L (4.30-5.90) m/uL Hgb 12.5 L 10.9 L 10.9 L (13.0-17.5) gm/dL Hct 37.5 L 34.0 L 32.6 L (39.0-53.0) % Plt Count 210 191 180 (150-450) k/uL Comprehensive Metabolic Panel 06/11/23 06/12/23 06/12/23 Range/Units 19:46 02:22 06:43 Sodium 139 141 139 (137-145) mmol/L Potassium 3.5 2.7 L* 3.4 L (3.5-5.1) mmol/L Chloride 101 102 99 (98-107) mmol/L Carbon Dioxide 32 H 32 H 30 (22-30) mmol/L BUN 60 H 58 H 65 H (9-20) mg/dL Creatinine 2.46 H 2.66 H 2.77 H (0.66-1.25) mg/dL Glucose 124 H 121 H 118 H (74-99) mg/dL Calcium 8.6 7.7 L 7.9 L (8.4-10.2) mg/dL AST 25 20 (17-59) U/L ALT 12 12 (4-49) U/L Alkaline Phosphatase 82 72 (38-126) U/L Total Protein 6.4 5.7 L (6.3-8.2) g/dL Albumin 3.4 L 2.9 L (3.5-5.0) g/dL Current Medications Generic Name Dose Route Start Last Admin Trade Name Freq PRN Reason Stop Dose Admin Aspirin 81 mg 06/12/23 09:00 Aspirin 81 Mg PO DAILY [facility] Atorvastatin Calcium 80 mg 06/12/23 21:00 Atorvastatin 80 Mg Tab PO HS [facility] Clopidogrel Bisulfate 75 mg 06/12/23 09:00 Clopidogrel 75 Mg Tab PO DAILY [facility] Divalproex Sodium 250 mg 06/12/23 14:00 Divalproex 250 Mg Tablet.Dr PO DAILY@1400 [facility] Furosemide 20 mg 06/12/23 09:00 Furosemide 20 Mg Tab PO DAILY [facility] Heparin Sodium (Porcine) 0 unit 06/11/23 20:45 Heparin Sodium 1,000 Un/Ml (10ml Vl) IV PER PROTOCOL PRN Low PTT Protocol Heparin Sodium/Sodium Chloride 250 mls @ 13.553 mls/hr 06/11/23 20:45 04:56 25,000 unit/ Sodium Chloride IV 9 units/kg/hr .[id number] [facility] 10.165 mls/hr Titration Protocol 12 UNITS/KG/HR Ceftriaxone Sodium 2 gm/ 50 mls @ 100 mls/hr 06/13/23 09:00 Sodium Chloride IVPB Q24HR [facility] Protocol Sodium Chloride 1,000 mls @ 75 mls/hr 06/12/23 04:15 06/12/23 04:29 Saline 0.9% IV 75 mls/hr .[id number] [facility] Administration Lactulose 30 gm 06/12/23 09:00 Lactulose 20 Gm/30 Ml Cup PO BID [facility] Levothyroxine Sodium 25 mcg 06/12/23 07:00 06/12/23 06:30 Levothyroxine 25 Mcg Tab PO 25 mcg DAILY@0700 [facility] Administration Naloxone HCl 0.2 mg 06/11/23 20:45 Naloxone 0.4 Mg/Ml 1 Ml Vial IV Q2M PRN Opioid Reversal Non-Formulary Medication 4.5 mg 06/12/23 09:00 Rivastigmine Tartrate [Exelon] PO BID [facility] Ondansetron HCl 4 mg 06/11/23 20:45 Ondansetron 4 Mg/2 Ml Vial IVP Q8HR PRN Nausea And Vomiting Pantoprazole Sodium 40 mg 06/11/23 21:00 06/11/23 21:42 Pantoprazole 40 Mg/10 Ml Vial IV 40 mg DAILY [facility] Administration Intake and Output 06/11/23 06/12/23 06/12/23 22:59 06:59 14:59 Intake Total 86.965 Output Total 650 300 Balance -650 -213.035 Intake: Intake, IV Titration 86.965 Amount Heparin Sod,Pork in 0.45% 86.965 NaCl 25,000 unit In 0.45 % NaCl 1 250ml.bag @ 12 UNITS/KG/HR 13.553 mls/hr IV .[id number] [facility] Rx#: [id number] Output: Urine 650 300 Other: Voiding Method Indwelling Catheter Weight 112.945 kg 112.945 kg 06/12/23 06:43 06/12/23 06:43 Assessment and Plan Assessment: #1 UTI with sepsis #2 non-ST elevation DE #3 advanced dementia #4 history of CVA #5 history of CHF Plan: From cardiology's perspective we will obtain 2D echo with Doppler study to assess cardiac structure and function. At this time we do not feel the patient is a good candidate for aggressive cardiac workup. We will continue to follow the patient. We will treat the patient medically at this time and reevaluate once there is improvement in the sepsis. 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 Patient was seen and examined.
[2023-06-12] MEDS: POTASSIUM CHLORIDE ER 20 MEQ TAB.ER PO SCH (13:04)
[2023-06-12] MEDS: DIVALPROEX 250 MG TABLET.DR PO SCH (13:05)
--- NOTE | 2023-06-12 13:33 | US ---
EXAMINATION TYPE: US renals and bladder DATE OF EXAM: 06/12/2023 COMPARISON: NONE CLINICAL INDICATION: Male, 82 years old with history of JACKELYN; Abnormal labs EXAM MEASUREMENTS: Right Kidney: 9.9 x 4.4 x 4.6 cm Left Kidney: 12.0 x 5.4 x 5.8 cm Right Kidney: Appears smaller in size compared to contralateral kidney Left Kidney: No hydronephrosis or masses seen Bladder: Wilson catheter Bilateral Jets not seen due to wilson There is no evidence for hydronephrosis at this point in time. No nephrolithiasis is seen. No heather s are identified. IMPRESSION: 1. No evidence for obstructive uropathy. 2. Atrophic appearing right kidney. 3. Wilson catheter in place.
[2023-06-12] MEDS: ACETAMINOPHEN TAB 325 MG TAB PO PRN (20:51)
[2023-06-12] MEDS: carvediloL 12.5 MG TAB PO SCH (20:52)
[2023-06-12] MEDS: ATORVASTATIN 80 MG TAB PO SCH (20:52)
[2023-06-12] MEDS ORDERED: LOSARTAN 50 MG TAB PO SCH (21:00)
[2023-06-13 03:23] LABS: HCT 28.4 % (39.0-53.0); Hypochromasia Slight; MCH 28.4 pg (25.0-35.0); MCHC 31.6 g/dL (31.0-37.0); Mean Platelet Volume 9.2; Platelet Count 150 k/uL (150-450); RBC 3.15 m/uL (4.30-5.90); RDW 15.7 % (11.5-15.5); WBC 16.5 k/uL (3.8-10.6)
[2023-06-13 04:11] LABS: African American GFR (CKD) 21 (>60 ml/min/1.73 sqM); Anion Gap 8 mmol/L; Blood Urea Nitrogen 68 mg/dL (9-20); Calcium 6.8 mg/dL (8.4-10.2); Carbon Dioxide 23 mmol/L (22-30); Chloride 104 mmol/L (98-107); Glucose 110 mg/dL (74-99); Non-African American GFR(CKD) 18 (>60 ml/min/1.73 sqM); Sodium 135 mmol/L (137-145)
[2023-06-13] MEDS: POTASSIUM CHLORIDE ER 20 MEQ TAB.ER PO STA (05:26)
[2023-06-13] MEDS: ASPIRIN 81 MG PO SCH (08:32)
[2023-06-13] MEDS: POTASSIUM CHLORIDE 10 MEQ in WATER FOR INJECTION 1 100ML.BAG IVPB SCH (10:37)
--- NOTE | 2023-06-13 11:30 | P.NPCON ---
History of Present Illness - Reason for Consult acute renal failure - History of Present Illness Patient is an 20-year-old male with history of CHF, dementia, CVA who is admitted to the hospital with complaints of increased weakness, decreased oral intake and vomiting. History is obtained from chart review. Patient is currently having an echocardiogram performed. He does not communicate much. No prior history of kidney diseases. Serum creatinine 2.4 on initial admission and increased to 3.0 today. Patient has an indwelling Mccord catheter. Blood pressure has been low with systolic in the 90s. Maintained on angiotensin receptor blockers at home 24 hour urine output at 1400 mL. Maintained on normal saline at 75 mL an hour. Review of Systems As per HPI Past Medical History Past Medical History: Heart Failure, CVA/TIA, Dementia, GERD/Reflux, Hyperlipidemia, Hypertension, Memory Impairment, Pneumonia Additional Past Medical History / Comment(s): . History of Any Multi-Drug Resistant Organisms: None Reported Past Surgical History: No Surgical Hx Reported Smoking Status: Never smoker Past Alcohol Use History: None Reported Past Drug Use History: None Reported Medications and Allergies Home Medications Medication Instructions Recorded Confirmed Type Atorvastatin [Lipitor] 80 mg PO HS@199906/11/23 06/12/23 History Clopidogrel [Plavix] 75 mg PO DAILY@0800 06/11/23 06/12/23 History Divalproex [Depakote] 250 mg PO DAILY@1400 06/11/23 06/12/23 History Famotidine [Pepcid] 20 mg PO DAILY@0800 06/11/23 06/12/23 History Furosemide [Lasix] 20 mg PO DAILY@0800 06/11/23 06/12/23 History Lactulose [Constulose] 20 gm PO BID@08,199906/11/23 06/12/23 History Levothyroxine Sodium 25 mcg PO DAILY@0800 06/11/23 06/12/23 History Losartan Potassium 50 mg PO HS@199906/11/23 06/12/23 History Rivastigmine Tartrate [Exelon] 4.5 mg PO BID@0800,199906/11/23 06/12/23 History metOLazone 5 mg PO DAILY@0730 06/11/23 06/12/23 History Acetaminophen Tab [Tylenol] 325 mg PO BID@0800,199906/12/23 06/12/23 History Ammonium Lactate Cream [Lac-Hydrin 1 applic TOPICAL BID@0800,199906/12/23 06/12/23 History 12% Cream] Ascorbic Acid [Vitamin C] 1,000 mg PO BID@0800,199906/12/23 06/12/23 History Aspirin EC [Ecotrin Low Dose] 81 mg PO DAILY@0800 06/12/23 06/12/23 History Cholecalciferol [Vitamin D3 (125 125 mcg PO DAILY@0800 06/12/23 06/12/23 History Mcg = 5000 Iu)] Cranberry 450mg 450 mg PO BID@0800,199906/12/23 06/12/23 History Lidocaine-Hydrocortisone 3-0.5% 1 applic RECTAL QID PRN 06/12/23 06/12/23 History Rectal Cream Liquacel 30 ml PO BID@0800,199906/12/23 06/12/23 History Potassium Chloride ER [K-Dur 10] 10 meq PO DAILY@0800 06/12/23 06/12/23 History Sennosides/Docusate Sodium 2 tab PO BID@0800,199906/12/23 06/12/23 History [Senna-S 8.6-50 mg Tablet] buPROPion [Wellbutrin] 100 mg PO DAILY@0800 06/12/23 06/12/23 History carvediloL [Coreg] 12.5 mg PO BID@0800,199906/12/23 06/12/23 History Allergies Allergy/AdvReac Type Severity Reaction Status Date / Time No Known Allergies Allergy Verified 06/12/23 08:37 Physical Exam Vitals: Vital Signs Temp Pulse Resp BP BP Pulse Ox 06/13/23 11:19 70 16 102/64 94 L 06/13/23 08:00 98.1 F 80 16 109/54 98 06/13/23 05:34 97.6 F 06/13/23 04:00 97.6 F 76 22 106/64 93 L 06/13/23 02:00 71 18 06/13/23 00:00 98.9 F 71 18 91/55 100 06/12/23 20:20 102.4 F H 60 22 117/74 98 06/12/23 20:00 60 22 06/12/23 16:00 98.5 F 70 18 100/67 06/12/23 14:00 72 18 06/12/23 12:00 98.5 F 72 18 99/64 97 Intake and Output 06/12/23 06/13/23 06/13/23 22:59 06:59 14:59 Intake Total 296.133 138.552 Output Total 275 850 Balance 21.133 -850 138.552 Intake: Intake, IV Titration 56.133 138.552 Amount Heparin Sod,Pork in 0.45% 56.133 138.552 NaCl 25,000 unit In 0.45 % NaCl 1 250ml.bag @ 12 UNITS/KG/HR 13.553 mls/hr IV .[id number] [facility] Rx#: [id number] Oral 240 Output: Urine 275 850 Other: Voiding Method Indwelling Catheter Indwelling Catheter # Bowel Movements 1 Patient is comfortable. He is sleeping but arousable. Does not communicate much Examination of the heart S1 and S2 Examination of the lungs bilateral breath sounds are heard Abdomen is soft nontender obese Examination of lower extremities shows edema 1+ bilaterally Results - Lab Results Most recent lab results Calcium 6.8 mg/dL (8.4-10.2) L 06/13/23 03:13 Magnesium 2.2 mg/dL (1.6-2.3) 06/13/23 03:13 06/13/23 03:13 06/13/23 03:13 Assessment and Plan Assessment: 1. Acute kidney injury, ATN associated with hypotension in the setting of use of angiotensin receptor blockers. Currently with indwelling Mccord catheter and nonoliguric. Maintained on normal saline 2. Possible underlying chronic kidney disease. Previous labs not available for comparison 3. Hypokalemia associated with diuretics and decreased oral intake 4. History of CHF, currently not in failure 5. Pyuria, rule out UTI Plan: Continue saline DC Lasix Continue with ceftriaxone DC Coreg Repeat labs in a.m. Continue to hold angiotensin receptor blockers Replace potassium Thank you for the consultation. We will continue to follow the patient with you during his hospitalization
--- NOTE | 2023-06-13 11:38 | P.PN ---
Subjective HISTORY OF PRESENT ILLNESS: This is a pleasant 82-year-old gentleman with advanced dementia. He is quite confused and unable to answer questions appropriately and family is not at the bedside. HPI was obtained from the chart. He has a history of hypertension, dementia, CVA and congestive heart failure. He was apparently brought to the emergency department due to episodes of vomiting. Shortly after presentation the patient apparently said he was feeling better and requested to be sent home. Chest x-ray on admission showed no acute cardiopulmonary process. Labs showed significantly elevated white blood cell count 32,000. Labs also showed evidence of renal insufficiency, of unknown duration as there are no labs to compare with a BUN of 60 creatinine 2.46. NT proBNP is elevated at 10,500. Plasma lactic acid was 2.4. Urine shows evidence of UTI. Troponins been elevated at 0.066, 0.127, 0.145 and 0.162. There is no mention of chest discomfort and patient denies any complaints of chest discomfort. He has been afebrile and somewhat hypotensive. Upon examination he currently denies any complaints. He denies further vomiting. Denies any chest discomfort, palpitations, shortness of breath. He denies any orthopnea or PND. He denies any dizziness lightheadedness or syncope. 06/13/2023 Patient examined this morning at the bedside. Patient remains somewhat confused. He appears to be resting comfortably in bed. He remains on IV heparin. No complaints of chest pain or pressure. Patient has been working with speech therapy this morning for possible aspiration. PHYSICAL EXAM: VITAL SIGNS: Reviewed. GENERAL: Well-developed in no acute distress. NECK: Supple. No JVD or thyromegaly LUNGS: Respirations even and unlabored. Lungs with mild expiratory wheezing noted HEART: Regular rate and rhythm. S1 and S2 heard. Systolic murmur noted. EXTREMITIES: Normal range of motion. No clubbing or cyanosis. Peripheral pulses intact. No lower extremity edema ASSESSMENT: Urinary tract infection with sepsis Non-STEMI History of CVA History of CHF Advanced dementia Possible aspiration PLAN: 2D echo has been ordered. Await results Continue current cardiac medications Discontinue IV heparin Patient is not a candidate for any invasive procedures such as cardiac catheterization. Continue with medical management at this time Further recommendations pending patient course Nurse practitioner note has been reviewed by physician. Signing provider agrees with the documented findings, assessment, and plan of care documented by ORDINARY SEAMAN as a scribe. Objective - Vital Signs Vital signs: Vital Signs Temp 98.1 F 06/13/23 08:00 Pulse 70 06/13/23 11:19 Resp 16 06/13/23 11:19 BP 102/64 06/13/23 11:19 Pulse Ox 94 L 06/13/23 11:19 FiO2 Intake & Output 06/12/23 06/13/23 06/13/23 18:59 06:59 18:59 Intake Total 694.850 34.128 138.552 Output Total 550 850 Balance 144.850 -815.872 138.552 Intake: Intake, IV Titration 104.850 34.128 138.552 Amount Heparin Sod,Pork in 0.45% 104.850 34.128 138.552 NaCl 25,000 unit In 0.45 % NaCl 1 250ml.bag @ 12 UNITS/KG/HR 13.553 mls/hr IV .[id number] [facility] Rx#: [id number] Oral 590 Output: Urine 550 850 Other: Voiding Method Indwelling Catheter Indwelling Catheter # Bowel Movements 1 1 - Labs CBC & Chem 7: 06/13/23 03:13 06/13/23 03:13 Labs: Abnormal Lab Results - Last 24 Hours (Table) 06/12/23 06/12/23 06/13/23 Range/Units 10:43 19:17 03:06 WBC (3.8-10.6) k/uL RBC (4.30-5.90) m/uL Hgb (13.0-17.5) gm/dL Hct (39.0-53.0) % RDW (11.5-15.5) % APTT 93.3 H 30.4 H 60.0 H (22.0-30.0) sec Sodium (137-145) mmol/L Potassium (3.5-5.1) mmol/L BUN (9-20) mg/dL Creatinine (0.66-1.25) mg/dL Glucose (74-99) mg/dL Calcium (8.4-10.2) mg/dL Troponin I (0.000-0.034) ng/mL 06/13/23 06/13/23 06/13/23 Range/Units 03:13 03:13 03:13 WBC 16.5 H (3.8-10.6) k/uL RBC 3.15 L (4.30-5.90) m/uL Hgb 9.0 L D (13.0-17.5) gm/dL Hct 28.4 L (39.0-53.0) % RDW 15.7 H (11.5-15.5) % APTT (22.0-30.0) sec Sodium 135 L (137-145) mmol/L Potassium 3.0 L (3.5-5.1) mmol/L BUN 68 H (9-20) mg/dL Creatinine 3.05 H (0.66-1.25) mg/dL Glucose 110 H (74-99) mg/dL Calcium 6.8 L (8.4-10.2) mg/dL Troponin I 0.058 H* (0.000-0.034) ng/mL
--- NOTE | 2023-06-13 12:59 | P.PN ---
Subjective Progress Note Date: 06/13/23 82-year-old male with PMH of CHF, history of CVA, dementia, GERD, hypertension, dyslipidemia presents to the ED for decreased oral intake, nausea and vomiting throughout the day, worsening cough. In the ED, he underwent extensive evaluation. BP 99/59, HR 94, RR 18, T 98.3 F, 89% on RA. CBC showed WBC count 32, hemoglobin 12.5, hematocrit 37.5. Coag panel unremarkable. CMP showed bicarb 32, BUN 60, creatinine 2.46, glucose 124, albumin 3.4. Lactic acid 2.4. Troponin 0.066, 0.127, 0.145. BNP 28637. Urinalysis large leukocyte esterase with greater than 182 WBCs. Flu, RSV, COVID-19 negative. [address] concerning for ST elevation in leads II III and AVF. CXR no acute process. Repeat CBC, Coag panel, CMP was done which was significant for WBC 25.6, hemoglobin 10.9, hematocrit 34, APTT 153.2, potassium 2.7, bicarb 32, BUN 58, creatinine 2.66, glucose 121, calcium 7.7, albumin 2.9. Mag 2.2. Lactic acid 2.4. Case was discussed with cardiology in the ED with no recommendations for immediate intervention at this time. Patient was started on Rocephin, IVF, heparin drip and admitted for further management and workup. 06/11 Patient was seen and examined. Lethargic but arousable. CBC WBC 26.8 Hg 10. 9 Hct 32.6. BMP K 3.4 BUN 65 Cr 2.77, glu 118, Ca 7.9. Lactic acid 1.4. Maintained on heparin drip. 06/12 Patient was seen and examined. Sleepy. No specific complaints. Cardiology note reviewed, not a good candidate for aggressive cardiac workup, obtain Echo, discontinue heparin drip. CBC WBC 16.5 Hg 9 Hct 28.4. APTT 60. BMP Na 135 K 3 BUN 68 Cr 3.05, glu 110, Ca 6.8. Troponin 0.058. Renal US atrophic right kidney no signs of obstruction. EKG with ST elevation in leads II III and aVF with PVCs. General: lethargic, no distress, appears at stated age Derm: warm, dry Head: atraumatic, normocephalic, symmetric Eyes: EOMI, no lid lag, anicteric sclera Mouth: no lip lesion, mucus membranes moist Cardiovascular: S1S2 reg, no murmur Lungs: CTA bilateral, no rhonchi, no rales , no accessory muscle use Abdominal: soft, nontender to palpation, no guarding, no appreciable organomegaly Ext: no gross muscle atrophy, no edema, no contractures Neuro: no focal neuro deficits Psych: Sleepy but easily arousable. Based on my assessment of this patient, this patient meets a high complexity level of care. Patient has an acute diagnosis of UTI sepsis with EKG findings concerning for STEMI that poses a threat to life or bodily function. UTI sepsis: Rocephin 2g IV QD. Follow BCx. UCx ordered. NS at 75 cc/hr. Telemetry monitoring. Troponin elevation with EKG concerning for ST elevation of leads II III AVF: Heparin drip discontinued. Troponin downtrending. ASA 81 mg PO QD. Plavix 75 mg PO QD. Lipitor 80 mg PO QHS. Echocardiogram ordered. Patient would benefit from cath give EKG findings. Cardiology on board. Severe hypokalemia: KCl 40 meq IV and 40 mq PO x 1 ordered today. Obtain Mag. JACKELYN on probable CKD: IV hydration as above. Judicious use of IVF given h/o CHF (unknown EF). No obstruction on renal US. Consult Nephrology. Chronic conditions: CHF, history of CVA, dementia, GERD, hypertension, dyslipidemia CODE STATUS: FULL CODE. DVT Prophylaxis: Heparin SQ GI Prophylaxis: Protonix IV Designated medical POA if patient is not able to make medical decisions for themselves: I have reviewed the following test consultant notes: Cardiology. I have reviewed the results of the following tests: CBC, BMP, Troponin. Renal US. I have ordered the following tests: Echo. UCx. CBC and BMP for tomorrow morning. I have discussed the care of this patient with the following independent historian: I have independently interpreted the following test below: EKG I have discussed the management of this patient with the following physician: Objective - Vital Signs Vital signs: Vital Signs Temp 98.1 F 06/13/23 08:00 Pulse 80 06/13/23 08:00 Resp 16 06/13/23 08:00 BP 109/54 06/13/23 08:00 Pulse Ox 98 06/13/23 08:00 FiO2 Intake & Output 03/17/24 03/18/24 03/18/24 18:59 06:59 18:59 Intake Total 694.850 34.128 138.552 Output Total 550 850 Balance 144.850 -815.872 138.552 Intake: Intake, IV Titration 104.850 34.128 138.552 Amount Heparin Sod,Pork in 0.45% 104.850 34.128 138.552 NaCl 25,000 unit In 0.45 % NaCl 1 250ml.bag @ 12 UNITS/KG/HR 13.553 mls/hr IV .[id number] [facility] Rx#: [id number] Oral 590 Output: Urine 550 850 Other: Voiding Method Indwelling Catheter Indwelling Catheter # Bowel Movements 1 1 - Labs CBC & Chem 7: 06/13/23 03:13 06/13/23 03:13 Labs: Abnormal Lab Results - Last 24 Hours (Table) 06/12/23 06/12/23 06/13/23 Range/Units 10:43 19:17 03:06 WBC (3.8-10.6) k/uL RBC (4.30-5.90) m/uL Hgb (13.0-17.5) gm/dL Hct (39.0-53.0) % RDW (11.5-15.5) % APTT 93.3 H 30.4 H 60.0 H (22.0-30.0) sec Sodium (137-145) mmol/L Potassium (3.5-5.1) mmol/L BUN (9-20) mg/dL Creatinine (0.66-1.25) mg/dL Glucose (74-99) mg/dL Calcium (8.4-10.2) mg/dL Troponin I (0.000-0.034) ng/mL 06/13/23 06/13/23 06/13/23 Range/Units 03:13 03:13 03:13 WBC 16.5 H (3.8-10.6) k/uL RBC 3.15 L (4.30-5.90) m/uL Hgb 9.0 L D (13.0-17.5) gm/dL Hct 28.4 L (39.0-53.0) % RDW 15.7 H (11.5-15.5) % APTT (22.0-30.0) sec Sodium 135 L (137-145) mmol/L Potassium 3.0 L (3.5-5.1) mmol/L BUN 68 H (9-20) mg/dL Creatinine 3.05 H (0.66-1.25) mg/dL Glucose 110 H (74-99) mg/dL Calcium 6.8 L (8.4-10.2) mg/dL Troponin I 0.058 H* (0.000-0.034) ng/mL
--- NOTE | 2023-06-13 15:52 | CA ---
Transthoracic Echo Report Name: Miguel Angel Escobedo Age: 82 Gender: M : 1940 Exam Date: 06/13/2023 10:05 Exam Location: [facility] Ht (in): 70 Wt (lb): 249 Ordering Physician: Jamie Mccarthy MD Attending/Referring Phys: Child Life Assistant Eve Aguila RDCS Procedure CPT: Indications: ST elevation, troponin elevation Cardiac Hx: Technical Quality: Technically difficult study Contrast 1: Definity Total Dose (mL): 2 Contrast 2: Total Dose (mL): MEASUREMENTS (Male / Female) Normal Values 2D ECHO LV Diastolic Diameter PLAX 5.2 cm 4.2 - 5.9 / 3.9 - 5.3 cm LV Systolic Diameter PLAX 3.6 cm IVS Diastolic Thickness 1.3 cm 0.6 - 1.0 / 0.6 - 0.9 cm LVPW Diastolic Thickness 0.8 cm 0.6 - 1.0 / 0.6 - 0.9 cm LV Relative Wall Thickness 0.4 LVOT Diameter 2.4 cm Aortic Root Diameter 3.9 cm LA Systolic Diameter LX 2.6 cm 3.0 - 4.0 / 2.7 - 3.8 cm DOPPLER AV Peak Velocity 102.9 cm/s AV Peak Gradient 4.2 mmHg AV Mean Velocity 67.6 cm/s AV Mean Gradient 2.2 mmHg AV Velocity Time Integral 21.5 cm LVOT Peak Velocity 77.8 cm/s LVOT Peak Gradient 2.4 mmHg LVOT Velocity Time Integral 17.4 cm LVOT Stroke Volume 76.0 cm??? LVOT Stroke Volume Index 33.2 ml/m??? LVOT Cardiac Index 2213.9 cm???/min???m??? AV Area Cont Eq vti 3.5 cm??? AV Area Cont Eq pk 3.3 cm??? MV Area PHT 3.8 cm??? Mitral E Point Velocity 72.6 cm/s Mitral A Point Velocity 101.9 cm/s Mitral E to A Ratio 0.7 MV Deceleration Time 198.6 ms TR Peak Velocity 246.6 cm/s TR Peak Gradient 24.3 mmHg PV Peak Velocity 91.0 cm/s PV Peak Gradient 3.3 mmHg FINDINGS Left Ventricle Mildly increased septal wall thickness. Normal left ventricular systolic function. Left ventricular ejection fraction is estimated at 50 %. Apical dyskinesia. Right Ventricle Normal right ventricular size. Unable to estimate the right ventricular systolic pressure. Right Atrium Normal right atrial size. Left Atrium Normal left atrial size. Mitral Valve Mild mitral regurgitation. Aortic Valve Aortic valve not well visualized. Tricuspid Valve Trace tricuspid regurgitation. Pulmonic Valve No pulmonic regurgitation. Pericardium No pericardial effusion. Aorta Normal size aortic root CONCLUSIONS Normal LV size. LVEF estimated at 50-55% Mild concentric LVH Apical dyskinesia. No evidence of LV thrombus on contrast imaging Mild mitral regurgitation. Normal LV size and function. No prior echo to compare with in database Previewed by: Dr Roberto Khanna (Electronically Signed) Final Date: 13 June 2023 15:51
[2023-06-13] MEDS: HEPARIN SODIUM,PORCINE 5,000 UNIT/ML 1 ML VIAL SQ SCH (20:24)
[2023-06-14 09:50] LABS: HGB 10.2 gm/dL (13.0-17.5); Hypochromasia Slight; MCH 28.5 pg (25.0-35.0); MCHC 31.1 g/dL (31.0-37.0); MCV 91.6 fL (80.0-100.0); Platelet Count 182 k/uL (150-450); RDW 15.6 % (11.5-15.5); WBC 14.7 k/uL (3.8-10.6)
[2023-06-14 10:10] LABS: African American GFR (CKD) 24 (>60 ml/min/1.73 sqM); Anion Gap 5 mmol/L; Blood Urea Nitrogen 58 mg/dL (9-20); Calcium 7.3 mg/dL (8.4-10.2); Carbon Dioxide 32 mmol/L (22-30); Chloride 102 mmol/L (98-107); Glucose 98 mg/dL (74-99); Non-African American GFR(CKD) 21 (>60 ml/min/1.73 sqM); Potassium 3.4 mmol/L (3.5-5.1); Sodium 139 mmol/L (137-145)
--- NOTE | 2023-06-14 10:31 | XR ---
EXAMINATION TYPE: XR chest 1V portable DATE OF EXAM: 06/14/2023 COMPARISON: 06/11/2023 HISTORY: Shortness of breath TECHNIQUE: Single frontal view of the chest is obtained. FINDINGS: Heart size is prominent and there is ectasia of the thoracic aorta. Widening mediastinum a nd prominent right paratracheal stripe. Underlying COPD. No focal pneumonia or pleural effusion. No p neumothorax. Arthropathy of the shoulders and degenerative changes spine. Linear perihilar changes an d lower lobe changes are most typical scarring or atelectasis IMPRESSION: 1. COPD with no definite acute process. 2. There is prominence of the right peritracheal stripe and mediastinum. Differential diagnosis would include vascular ectasia, adenopathy or enlarged thyroid.
--- NOTE | 2023-06-14 10:46 | P.PN ---
Subjective Progress Note Date: 06/14/23 82-year-old male with PMH of CHF, history of CVA, dementia, GERD, hypertension, dyslipidemia presents to the ED for decreased oral intake, nausea and vomiting throughout the day, worsening cough. In the ED, he underwent extensive evaluation. BP 99/59, HR 94, RR 18, T 98.3 F, 89% on RA. CBC showed WBC count 32, hemoglobin 12.5, hematocrit 37.5. Coag panel unremarkable. CMP showed bicarb 32, BUN 60, creatinine 2.46, glucose 124, albumin 3.4. Lactic acid 2.4. Troponin 0.066, 0.127, 0.145. BNP 70024. Urinalysis large leukocyte esterase with greater than 182 WBCs. Flu, RSV, COVID-19 negative. [address]KG concerning for ST elevation in leads II III and AVF. CXR no acute process. Repeat CBC, Coag panel, CMP was done which was significant for WBC 25.6, hemoglobin 10.9, hematocrit 34, APTT 153.2, potassium 2.7, bicarb 32, BUN 58, creatinine 2.66, glucose 121, calcium 7.7, albumin 2.9. Mag 2.2. Lactic acid 2.4. Case was discussed with cardiology in the ED with no recommendations for immediate intervention at this time. Patient was started on Rocephin, IVF, heparin drip and admitted for further management and workup. 06/11 Patient was seen and examined. Lethargic but arousable. CBC WBC 26.8 Hg 10. 9 Hct 32.6. BMP K 3.4 BUN 65 Cr 2.77, glu 118, Ca 7.9. Lactic acid 1.4. Maintained on heparin drip. 06/12 Patient was seen and examined. Sleepy. No specific complaints. Cardiology note reviewed, not a good candidate for aggressive cardiac workup, obtain Echo, discontinue heparin drip. CBC WBC 16.5 Hg 9 Hct 28.4. APTT 60. BMP Na 135 K 3 BUN 68 Cr 3.05, glu 110, Ca 6.8. Troponin 0.058. Renal US atrophic right kidney no signs of obstruction. EKG with ST elevation in leads II III and aVF with PVCs. 06/13 Patient was seen and examined. Patient reports wheezing and shortness of breath. He is much more awake today. Echocardiogram shows EF 50-55%, mild concentric LVH, apical dyskinesia, mild MR. UCx growing gram negative bacilli, BCx prelim negative. Currently on Rocephin 2g IV QD (D3). CBC WBC 14.7 Hg 10.2 Hct 33. BMP K 3.4, bicarb 32, BUN 58, Cr 2.74, Ca 7.3. CXR done today showed signs of COPD with prominent right peritracheal stripe and mediastinum. General: lethargic, no distress, appears at stated age Derm: warm, dry Head: atraumatic, normocephalic, symmetric Eyes: EOMI, no lid lag, anicteric sclera Mouth: no lip lesion, mucus membranes moist Cardiovascular: S1S2 reg, no murmur Lungs: Expiratory wheezing bilateral, no rhonchi, no rales , no accessory muscle use Ext: no gross muscle atrophy, no edema, no contractures Neuro: no focal neuro deficits Psych: Alert and oriented. Based on my assessment of this patient, this patient meets a high complexity level of care. Patient has an acute diagnosis of UTI sepsis with EKG findings concerning for STEMI that poses a threat to life or bodily function. UTI sepsis: Rocephin 2g IV QD. Follow BCx. UCx gram negative bacilli. DC IVF. Telemetry monitoring. Troponin elevation with EKG concerning for ST elevation of leads II III AVF: Heparin drip discontinued. Troponin downtrending. ASA 81 mg PO QD. Plavix 75 mg PO QD. Lipitor 80 mg PO QHS. Echocardiogram as above. Patient would benefit from cath give EKG findings. Cardiology on board. Acute COPD exacerbation: Start DuoNeb QID PRN for SOB/wheezing. Start Prednisone 40 mg PO QD. Robitussin 200mg PO Q6H PRN for cough. Severe hypokalemia: Replace potassium via protocol. JACKELYN on probable CKD: IV hydration as above. Judicious use of IVF given h/o CHF (unknown EF). Lasix and Losartan discontinued. No obstruction on renal US. Nephrology on board. Chronic conditions: CHF, history of CVA, dementia, GERD, hypertension, dyslipidemia CODE STATUS: FULL CODE. DVT Prophylaxis: Heparin SQ GI Prophylaxis: Protonix IV Designated medical POA if patient is not able to make medical decisions for themselves: I have reviewed the following data processing systems consultant notes: I have reviewed the results of the following tests: CBC, BMP, Echo, UCx. I have ordered the following tests: I have discussed the care of this patient with the following independent historian: I have independently interpreted the following test below: CXR. I have discussed the management of this patient with the following physician: Objective - Vital Signs Vital signs: Vital Signs Temp 98.4 F 06/14/23 08:00 Pulse 70 06/14/23 08:00 Resp 18 06/14/23 08:00 BP 123/76 06/14/23 08:00 Pulse Ox 94 L 06/14/23 08:00 FiO2 Intake & Output 06/13/23 06/14/23 06/14/23 18:59 06:59 18:59 Intake Total 138.552 Output Total 2450 700 Balance -2311.448 -700 Intake: Intake, IV Titration 138.552 Amount Heparin Sod,Pork in 0.45% 138.552 NaCl 25,000 unit In 0.45 % NaCl 1 250ml.bag @ 12 UNITS/KG/HR 13.553 mls/hr IV .[id number] [facility] Rx#: [id number] Output: Urine 2450 700 Other: Voiding Method Indwelling Catheter Indwelling Catheter - Labs CBC & Chem 7: 06/14/23 09:11 06/14/23 09:11 Labs: Microbiology - Last 24 Hours (Table) 06/12/23 10:23 Urine Culture - Preliminary Urine,Catheterized Gram Neg Bacilli 06/11/23 21:31 Blood Culture - Preliminary Blood
[2023-06-14] MEDS: predniSONE 20 MG TAB PO SCH (11:14)
[2023-06-14] MEDS: IPRATROPIUM-ALBUTEROL 3 ML NEB INHALATION PRN (11:42)
--- NOTE | 2023-06-14 11:50 | P.PN ---
Subjective Patient is seen for follow-up for acute kidney injury. Lasix was discontinued yesterday. IV fluids were also discontinued. Patient is complaining of wheezing. No complaints of shortness of breath. Urine output at 3.1 L for 24 hours. Patient is more awake today and carrying on a conversation. Serum creatinine lower at 2.7 from 3.0 yesterday. Objective - Vital Signs Vital signs: Vital Signs Temp 98.4 F 06/14/23 11:04 Pulse 72 06/14/23 11:43 Resp 18 06/14/23 11:04 BP 109/71 06/14/23 11:04 Pulse Ox 93 L 06/14/23 11:04 FiO2 Intake & Output 06/13/23 06/14/23 06/14/23 18:59 06:59 18:59 Intake Total 138.552 Output Total 2450 700 200 Balance -2311.448 -700 -200 Intake: Intake, IV Titration 138.552 Amount Heparin Sod,Pork in 0.45% 138.552 NaCl 25,000 unit In 0.45 % NaCl 1 250ml.bag @ 12 UNITS/KG/HR 13.553 mls/hr IV .[id number] [facility] Rx#: [id number] Output: Urine 2450 700 200 Other: Voiding Method Indwelling Catheter Indwelling Catheter Indwelling Catheter - Exam Patient is comfortable. Patient is awake and answering questions appropriately Examination of the heart S1 and S2 Examination of the lungs bilateral breath sounds are heard Abdomen is soft nontender obese Examination of lower extremities shows edema 1+ bilaterally CHIEF OF VITAL STATISTICS exam shows patient is moving all 4 extremities - Labs CBC & Chem 7: 06/14/23 09:11 06/14/23 09:11 Labs: Abnormal Lab Results - Last 24 Hours (Table) 06/14/23 06/14/23 Range/Units 09:11 09:11 WBC 14.7 H (3.8-10.6) k/uL RBC 3.60 L (4.30-5.90) m/uL Hgb 10.2 L (13.0-17.5) gm/dL Hct 33.0 L (39.0-53.0) % RDW 15.6 H (11.5-15.5) % Potassium 3.4 L (3.5-5.1) mmol/L Carbon Dioxide 32 H (22-30) mmol/L BUN 58 H (9-20) mg/dL Creatinine 2.74 H (0.66-1.25) mg/dL Calcium 7.3 L (8.4-10.2) mg/dL Microbiology - Last 24 Hours (Table) 06/12/23 10:23 Urine Culture - Preliminary Urine,Catheterized Gram Neg Bacilli 06/11/23 21:31 Blood Culture - Preliminary Blood Assessment and Plan Assessment: 1. Acute kidney injury, ATN associated with hypotension in the setting of use of angiotensin receptor blockers. Currently with indwelling Mccord catheter and nonoliguric. Status post IV fluids 2. Possible underlying chronic kidney disease. Previous labs not available for comparison 3. Hypokalemia associated with diuretics and decreased oral intake 4. History of CHF, currently not in failure 5. UTI with urine culture growing gram-negative bacilli Plan: Okay to continue off of diuretics and IV fluids. Agree with chest x-ray. No suggestion of CHF on chest x-ray from today. Repeat labs in a.m.
[2023-06-14] MEDS: POTASSIUM CHLORIDE ER 20 MEQ TAB.ER PO STA (12:26)
[2023-06-14] MEDS: METOPROLOL SUCCINATE (ER) 25 MG TAB.ER.24H PO SCH (12:26)
--- NOTE | 2023-06-14 13:05 | P.PN ---
Subjective HISTORY OF PRESENT ILLNESS: This is a pleasant 82-year-old gentleman with advanced dementia. He is quite confused and unable to answer questions appropriately and family is not at the bedside. HPI was obtained from the chart. He has a history of hypertension, dementia, CVA and congestive heart failure. He was apparently brought to the emergency department due to episodes of vomiting. Shortly after presentation the patient apparently said he was feeling better and requested to be sent home. Chest x-ray on admission showed no acute cardiopulmonary process. Labs showed significantly elevated white blood cell count 32,000. Labs also showed evidence of renal insufficiency, of unknown duration as there are no labs to compare with a BUN of 60 creatinine 2.46. NT proBNP is elevated at 10,500. Plasma lactic acid was 2.4. Urine shows evidence of UTI. Troponins been elevated at 0.066, 0.127, 0.145 and 0.162. There is no mention of chest discomfort and patient denies any complaints of chest discomfort. He has been afebrile and somewhat hypotensive. Upon examination he currently denies any complaints. He denies further vomiting. Denies any chest discomfort, palpitations, shortness of breath. He denies any orthopnea or PND. He denies any dizziness lightheadedness or syncope. 06/13/2023 Patient examined this morning at the bedside. Patient remains somewhat confused. He appears to be resting comfortably in bed. He remains on IV heparin. No complaints of chest pain or pressure. Patient has been working with speech therapy this morning for possible aspiration. 06/14/2023 Patient examined this morning at the bedside. Patient currently denies chest pain or pressure. He denies shortness of breath. Vital signs are stable. Echocardiogram completed revealing ejection fraction 50% with apical dyskinesia. No evidence of LV thrombus. Mild mitral regurgitation. PHYSICAL EXAM: VITAL SIGNS: Reviewed. GENERAL: Well-developed in no acute distress. NECK: Supple. No JVD or thyromegaly LUNGS: Respirations even and unlabored. Lungs with mild expiratory wheezing noted HEART: Regular rate and rhythm. S1 and S2 heard. Systolic murmur noted. EXTREMITIES: Normal range of motion. No clubbing or cyanosis. Peripheral pulses intact. No lower extremity edema ASSESSMENT: Urinary tract infection with sepsis Non-STEMI History of CVA History of CHF Advanced dementia Possible aspiration PLAN: Continue current cardiac medications Add metoprolol 12.5 mg daily Patient is not a candidate for any invasive procedures such as cardiac catheterization. Continue with medical management at this time No further inpatient recommendations from a cardiac standpoint We will sign off. Please reconsult if needed. Nurse practitioner note has been reviewed by physician. Signing provider agrees with the documented findings, assessment, and plan of care documented by [employer] as a scribe. Objective - Vital Signs Vital signs: Vital Signs Temp 98.4 F 06/14/23 08:00 Pulse 70 06/14/23 08:00 Resp 18 06/14/23 08:00 BP 123/76 06/14/23 08:00 Pulse Ox 94 L 06/14/23 08:00 FiO2 Intake & Output 06/13/23 06/14/23 06/14/23 18:59 06:59 18:59 Intake Total 138.552 Output Total 2450 700 Balance -2311.448 -700 Intake: Intake, IV Titration 138.552 Amount Heparin Sod,Pork in 0.45% 138.552 NaCl 25,000 unit In 0.45 % NaCl 1 250ml.bag @ 12 UNITS/KG/HR 13.553 mls/hr IV [id number] Rx#: [id number] Output: Urine 2450 700 Other: Voiding Method Indwelling Catheter Indwelling Catheter - Labs CBC & Chem 7: 06/14/23 09:11 06/14/23 09:11 Labs: Microbiology - Last 24 Hours (Table) 06/12/23 10:23 Urine Culture - Preliminary Urine,Catheterized Gram Neg Bacilli 06/11/23 21:31 Blood Culture - Preliminary Blood
[2023-06-15] MEDS: guaiFENesin SYRUP 100MG/5ML 200 MG/10 ML CUP PO PRN (04:16)
[2023-06-15 08:18] VITALS: RESP 24
[2023-06-15 08:38] LABS: HGB 9.6 gm/dL (13.0-17.5); Hypochromasia Slight; MCHC 30.9 g/dL (31.0-37.0); MCV 90.6 fL (80.0-100.0); Mean Platelet Volume 8.5; Platelet Count 189 k/uL (150-450); RBC 3.42 m/uL (4.30-5.90); RDW 15.7 % (11.5-15.5); WBC 16.6 k/uL (3.8-10.6)
[2023-06-15 08:58] LABS: African American GFR (CKD) 31 (>60 ml/min/1.73 sqM); Anion Gap 5 mmol/L; Blood Urea Nitrogen 50 mg/dL (9-20); Calcium 7.6 mg/dL (8.4-10.2); Carbon Dioxide 31 mmol/L (22-30); Chloride 104 mmol/L (98-107); Glucose 119 mg/dL (74-99); Non-African American GFR(CKD) 27 (>60 ml/min/1.73 sqM); Potassium 3.2 mmol/L (3.5-5.1); Sodium 140 mmol/L (137-145)
--- NOTE | 2023-06-15 10:55 | P.DS ---
Providers Date of admission: 06/13/23 08:03 Expected date of discharge: 06/15/23 Attending physician: Sudeep Stone MD Consults: 06/13/23 08:40 Consult Physician Routine Consulting Provider: River [facility] Consult Reason/Comments: worsening renal function Do you want consulting provider notified?: Yes Primary care physician: [facility] Course: 82-year-old male with PMH of CHF, history of CVA, dementia, GERD, hypertension, dyslipidemia presents to the ED for decreased oral intake, nausea and vomiting throughout the day, worsening cough. In the ED, he underwent extensive evaluation. BP 99/59, HR 94, RR 18, T 98.3 F, 89% on RA. CBC showed WBC count 32, hemoglobin 12.5, hematocrit 37.5. Coag panel unremarkable. CMP showed bicarb 32, BUN 60, creatinine 2.46, glucose 124, albumin 3.4. Lactic acid 2.4. Troponin 0.066, 0.127, 0.145. BNP 92002. Urinalysis large leukocyte esterase with greater than 182 WBCs. Flu, RSV, COVID-[address] negative. [address] concerning for ST elevation in leads II III and AVF. CXR no acute process. Repeat CBC, Coag panel, CMP was done which was significant for WBC 25.6, hemoglobin 10.9, hematocrit 34, APTT 153.2, potassium 2.7, bicarb 32, BUN 58, creatinine 2.66, glucose 121, calcium 7.7, albumin 2.9. Mag 2.2. Lactic acid 2.4. Case was discussed with cardiology in the ED with no recommendations for immediate intervention at this time. Patient was started on Rocephin, IVF, heparin drip and admitted for further management and workup. 06/11 Patient was seen and examined. Lethargic but arousable. CBC WBC 26.8 Hg 10.9 Hct 32.6. BMP K 3.4 BUN 65 Cr 2.77, glu 118, Ca 7.9. Lactic acid 1.4. Maintained on heparin drip. 06/12 Patient was seen and examined. Sleepy. No specific complaints. Cardiology note reviewed, not a good candidate for aggressive cardiac workup, obtain Echo, discontinue heparin drip. CBC WBC 16.5 Hg 9 Hct 28.4. APTT 60. BMP Na 135 K 3 BUN 68 Cr 3.05, glu 110, Ca 6.8. Troponin 0.058. Renal US atrophic right kidney no signs of obstruction. EKG with ST elevation in leads II III and aVF with PVCs. 06/13 Patient was seen and examined. Patient reports wheezing and shortness of breath. He is much more awake today. Echocardiogram shows EF 50-55%, mild concentric LVH, apical dyskinesia, mild MR. UCx growing gram negative bacilli, BCx prelim negative. Currently on Rocephin 2g IV QD (D3). CBC WBC 14.7 Hg 10.2 Hct 33. BMP K 3.4, bicarb 32, BUN 58, Cr 2.74, Ca 7.3. CXR done today showed signs of COPD with prominent right peritracheal stripe and mediastinum. 06/14 Patient was seen and examined. SOB, cough and wheezing improved since yesterday. He is much more awake and alert today. CBC WBC 16.6 Hg 9.6 Hct 31. BMP K 3.2 bicarb 31 BUN 50 Cr 2.24 glu 119 Ca 7.6. UCx Proteus mirabilis de [place] rosa sensitive. He has received 4 days of Rocephin during his hospitalization, we will continue Cefdinir for 3 more days to complete a total of 7 days antibiotics. Also continue 3 more days of Prednisone to complete a total of 5 doses and Albuterol inhaler PRN for COPD exacerbation. He has a chronic wilson catheter which was replaced on 06/10. Plans for discharge home today. General: no distress, appears at stated age Derm: warm, dry Head: atraumatic, normocephalic, symmetric Eyes: EOMI, no lid lag, anicteric sclera Mouth: no lip lesion, mucus membranes moist Cardiovascular: S1S2 reg, no murmur Lungs: Decreased BS bilateral with mild expiratory wheezing, no rhonchi, no rales , no accessory muscle use Ext: no gross muscle atrophy, no edema, no contractures Neuro: no focal neuro deficits Psych: Alert and oriented. Discharge Diagnosis: UTI sepsis NSTEMI Acute COPD exacerbation Severe hypokalemia JACKELYN on probable CKD Chronic conditions: CHF, history of CVA, dementia, GERD, hypertension, dyslipidemia This complex discharge took 35 minutes to complete. Patient Condition at Discharge: Stable Plan - Discharge Summary Discharge Rx Participant: No New Discharge Prescriptions: New Cefdinir 300 mg PO Q12HR #6 cap Albuterol Inhaler [Ventolin Hfa Inhaler] 1 puff INHALATION QID PRN #8 gm PRN Reason: Shortness Of Breath Or Wheezing predniSONE [Deltasone] 40 mg PO DAILY #6 tab Metoprolol Succinate (ER) [Toprol XL] 12.5 mg PO DAILY #30 tab Continue Clopidogrel [Plavix] 75 mg PO DAILY@0800 Furosemide [Lasix] 20 mg PO DAILY@0800 Levothyroxine Sodium 25 mcg PO DAILY@0800 Rivastigmine Tartrate [Exelon] 4.5 mg PO BID@799,1999 Atorvastatin [Lipitor] 80 mg PO HS@1999 Ammonium Lactate Cream [Lac-Hydrin 12% Cream] 1 applic TOPICAL BID@799,1999 Acetaminophen Tab [Tylenol] 325 mg PO BID@799,1999 Sennosides/Docusate Sodium [Senna-S 8.6-50 mg Tablet] 2 tab PO BID@799,1999 Potassium Chloride ER [K-Dur 10] 10 meq PO DAILY@0800 Lidocaine-Hydrocortisone 3-0.5% Rectal Cream 1 applic RECTAL QID PRN PRN Reason: Irritation Cranberry 450mg 450 mg PO BID@799,1999 Divalproex [Depakote] 250 mg PO DAILY@1400 Famotidine [Pepcid] 20 mg PO DAILY@0800 Lactulose [Constulose] 20 gm PO BID@799,1999 metOLazone 5 mg PO DAILY@0730 Cholecalciferol [Vitamin D3 (125 Mcg = 5000 Iu)] 125 mcg PO DAILY@0800 Aspirin EC [Ecotrin Low Dose] 81 mg PO DAILY@0800 Ascorbic Acid [Vitamin C] 1,000 mg PO BID@ buPROPion [Wellbutrin] 100 mg PO DAILY@0800 Liquacel 30 ml PO BID@ Discontinued Losartan Potassium 50 mg PO HS@1999 carvediloL [Coreg] 12.5 mg PO BID@ Discharge Medication List Atorvastatin [Lipitor] 80 mg PO HS@199906/11/23 [History] Clopidogrel [Plavix] 75 mg PO DAILY@0800 06/11/23 [History] Divalproex [Depakote] 250 mg PO DAILY@1400 06/11/23 [History] Famotidine [Pepcid] 20 mg PO DAILY@0806/11/23 [History] Furosemide [Lasix] 20 mg PO DAILY@0806/11/23 [History] Lactulose [Constulose] 20 gm PO BID@08,199906/11/23 [History] Levothyroxine Sodium 25 mcg PO DAILY@0806/11/23 [History] Rivastigmine Tartrate [Exelon] 4.5 mg PO BID@08,199906/11/23 [History] metOLazone 5 mg PO DAILY@0730 06/11/23 [History] Acetaminophen Tab [Tylenol] 325 mg PO BID@799,199906/12/23 [History] Ammonium Lactate Cream [Lac-Hydrin 12% Cream] 1 applic TOPICAL BID@799,199906/12/23 [History] Ascorbic Acid [Vitamin C] 1,000 mg PO BID@799,199906/12/23 [History] Aspirin EC [Ecotrin Low Dose] 81 mg PO DAILY@79906/12/23 [History] Cholecalciferol [Vitamin D3 (125 Mcg = 5000 Iu)] 125 mcg PO DAILY@79906/12/23 [History] Cranberry 450mg 450 mg PO BID@799,199906/12/23 [History] Lidocaine-Hydrocortisone 3-0.5% Rectal Cream 1 applic RECTAL QID PRN 06/12/23 [History] Liquacel 30 ml PO BID@799,199906/12/23 [History] Potassium Chloride ER [K-Dur 10] 10 meq PO DAILY@79906/12/23 [History] Sennosides/Docusate Sodium [Senna-S 8.6-50 mg Tablet] 2 tab PO BID@799,199906/12/23 [History] buPROPion [Wellbutrin] 100 mg PO DAILY@79906/12/23 [History] Albuterol Inhaler [Ventolin Hfa Inhaler] 1 puff INHALATION QID PRN #8 gm 06/15/23 [Rx] Cefdinir 300 mg PO Q12HR #6 cap 06/15/23 [Rx] Metoprolol Succinate (ER) [Toprol XL] 12.5 mg PO DAILY #30 tab 06/15/23 [Rx] predniSONE [Deltasone] 40 mg PO DAILY #6 tab 06/15/23 [Rx] Follow up Appointment(s)/Referral(s): [facility] [[facility]] - Jose L Morelos MD [Primary Care Provider] - 1-2 days Ambulatory/Diagnostic Orders: Basic Metabolic Panel [LAB.AMB] Time Frame: 3 Days, Location: None Selected Activity/Diet/Wound Care/Special Instructions: Patient to transport back by WC van per Legal Guardian and have bill sent to their office. Repeat BMP in 3 days. Follow up results of potassium with PCP. Discharge Disposition: HOME SELF-CARE
[2023-06-15] MEDS ORDERED: POTASSIUM CHLORIDE ER 20 MEQ TAB.ER PO ONE (11:13)
[2023-06-15] MEDS: POTASSIUM CHLORIDE ER 20 MEQ TAB.ER PO STA (11:16)
--- NOTE | 2023-06-15 11:42 | P.PN ---
Subjective Patient is seen for follow-up for acute kidney injury. Renal function has improved. Currently off of IV fluids and diuretics. Serum creatinine decreased to 2.2 Objective - Vital Signs Vital signs: Vital Signs Temp 97.7 F 06/15/23 07:54 Pulse 75 06/15/23 07:54 Resp 24 06/15/23 07:54 BP 125/76 06/15/23 07:54 Pulse Ox 99 06/15/23 07:54 FiO2 Intake & Output 06/14/23 06/15/23 06/15/23 18:59 06:59 18:59 Intake Total 840 50 180 Output Total 1100 925 900 Balance -318 -629 -149 Intake: Intake, IV Titration 50 Amount cefTRIAXone 2 gm In 50 Sodium Chloride 0.9% 50 ml @ 100 mls/hr IVPB HS [facility] Rx#:[id number] Oral 840 180 Output: Urine 1100 925 900 Other: Voiding Method Indwelling Catheter Indwelling Catheter Indwelling Catheter - Exam Patient is comfortable. 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 HAND exam shows patient is moving all 4 extremities - Labs CBC & Chem 7: 06/15/23 08:03 06/15/23 08:03 Labs: Abnormal Lab Results - Last 24 Hours (Table) 06/15/23 06/15/23 Range/Units 08:03 08:03 WBC 16.6 H (3.8-10.6) k/uL RBC 3.42 L (4.30-5.90) m/uL Hgb 9.6 L (13.0-17.5) gm/dL Hct 31.0 L (39.0-53.0) % MCHC 30.9 L (31.0-37.0) g/dL RDW 15.7 H (11.5-15.5) % Potassium 3.2 L (3.5-5.1) mmol/L Carbon Dioxide 31 H (22-30) mmol/L BUN 50 H (9-20) mg/dL Creatinine 2.24 H (0.66-1.25) mg/dL Glucose 119 H (74-99) mg/dL Calcium 7.6 L (8.4-10.2) mg/dL Microbiology - Last 24 Hours (Table) 06/12/23 10:23 Urine Culture - Final Urine,Catheterized Proteus mirabilis 06/11/23 21:31 Blood Culture - Preliminary Blood Assessment and Plan Assessment: 1. Acute kidney injury, ATN associated with hypotension in the setting of use of angiotensin receptor blockers. Currently with indwelling Mccord catheter and nonoliguric. Status post IV fluids 2. Possible underlying chronic kidney disease. Previous labs not available for comparison 3. Hypokalemia associated with diuretics and decreased oral intake 4. History of CHF, currently not in failure 5. UTI with urine culture growing gram-negative bacilli Plan: Replace potassium with 60 mEq total Okay for discharge from nephrology standpoint. Hold metolazone and can likely resume Lasix in 2-3 days post discharge.
[2023-06-15] MEDS: POTASSIUM CHLORIDE ER 20 MEQ TAB.ER PO ONE (12:01)
[2023-06-15 12:49] VITALS: BP 120/72; PULSE 62; TEMP 98.5
--- NOTE | 2023-06-16 19:54 | CDI ---
Documentation Clarification Form Date: 06/16/2023 07:45:05 PM From: Susana Pratt Phone: Admit Date: 06/13/2023 08:03:00 AM Patient Name: Miguel Angel Escobedo Visit Number: [id number] Discharge Date: 06/15/2023 01:07:00 PM ATTENTION: The Clinical Documentation Specialists (CDI) and [facility] Coding Staff appreciate your assistance in clarifying documentation. Please respond to the clarification below the line at the bottom and electronically sign. The CDI & [facility] Coding staff will review the response and follow-up if needed. Please note: Queries are made part of the Legal Health Record. If you have any questions, please contact the author of this message via ITS. Dr. Jamie Mccarthy UTI is documented per H&P and patient is noted to have a chronic Mccord. Additional clarification regarding the etiology of the UTI is requested. History/Risk Factors: 82yo M, Proteus UTI, acutesepsis, STEMI, AECOPD, hypokalemia, ATNonprobableCKD, CHF,history of CVA,dementia,GERD,HTN, HLD, MR Clinical Indicators: Urinalysis: large leukocyte esterase with greater than 182 WBCs. Urine culture: Urine, CatheterizedGramNegBacilli Treatment: Dave wasreplacedon 06/10. Mancia sensitive. He has received 4 days of Rocephin during his hospitalization, we will continue Cefdinir for 3 more days to complete a total of 7 days Please clarify the etiology of the UTI, if known: [ x] Mccord catheter [ ] UTI not related to catheter [ ] Other condition, please specify [ ] Unable to determine (Template Last Revised: May 2020) MTDD
--- NOTE | 2023-06-16 20:01 | CDI ---
Documentation Clarification Form Date: 06/16/2023 07:54:00 PM From: Susana Pratt Phone: Admit Date: 06/13/2023 08:03:00 AM Patient Name: Miguel Angel Escobedo Visit Number: [id number] Discharge Date: 06/15/2023 01:07:00 PM ATTENTION: The Clinical Documentation Specialists (CDI) and [facility] Coding Staff appreciate your assistance in clarifying documentation. Please respond to the clarification below the line at the bottom and electronically sign. The CDI & [facility] Coding staff will review the response and follow-up if needed. Please note: Queries are made part of the Legal Health Record. If you have any questions, please contact the author of this message via ITS. Dr. Jamie Mccarthy Unspecified CKD is documented per Progress Note 3/17. Additional clarification regarding the stage of CKD is requested. History/Risk Factors: 82yo M, Proteus UTI, acute sepsis, STEMI, AECOPD, hypokalemia, ATN on probable CKD, CHF, history of CVA, dementia, GERD, HTN, HLD, MR, chronic Wilson Patients Historical BUN/CR/GFR: unknown Clinical Indicators: BUN: 60 Cr: 2.4 Gfr: 18-31 Renal Bladder US: Right Kidney: Appears smaller in size compared to contralateral kidney. Left Kidney:Nohydronephrosisormassesseen Bladder:Wilson catheter Bilateral Jets not seen due to wilson There isno evidence forhydronephrosisat this point in time. No nephrolithiasisis seen. Nomassesare identified. Treatment: IV hydration as above. Judicious use ofIVFgiven h/oCHF (unknown EF). Obtain Renal/bladder US. Please clarify the stage of the CKD, if known: [ ] CKD Stage 3b [ x ] CKD Stage 4 [ ] Other, please specify [ ] Unable to determine Reference: National Kidney Foundation Stage 1 eGFR = 90 and kidney damage for =3 months Stage 2 eGFR 60-89 and kidney damage for =3 months Stage 3a eGFR 45-59 and kidney damage for =3 months Stage 3b eGFR 30-44 and kidney damage for =3 months Stage 4 eGFR 15-29 r and kidney damage for =3 months Stage 5 eGFR <15 and kidney damage for =3 months (Template last revised: March 2023) MTDD
--- NOTE | 2023-06-16 20:09 | CDI ---
Documentation Clarification Form Date: 06/16/2023 08:03:00 PM From: Susana Pratt Phone: Admit Date: 06/13/2023 08:03:00 AM Patient Name: Miguel Angel Escobedo Visit Number: [id number] Discharge Date: 06/15/2023 01:07:00 PM ATTENTION: The Clinical Documentation Specialists (CDI) and [facility] Coding Staff appreciate your assistance in clarifying documentation. Please respond to the clarification below the line at the bottom and electronically sign. The CDI & [facility] Coding staff will review the response and follow-up if needed. Please note: Queries are made part of the Legal Health Record. If you have any questions, please contact the author of this message via ITS. Dr. aJmie Wisdomnam Your patient has the documented diagnosis of unspecified CHF per H Notes. Additional information regarding the type of CHF is requested. History/Risk Factors: 82yo M, Proteus UTI, acute sepsis, STEMI, AECOPD, hypokalemia, ATN on probable CKD, CHF, history of CVA, dementia, GERD, HTN, HLD, MR, chronic Mccord Clinical Indicators: VS/Pulse OX: 89-99 BNP: 14523 Echocardiogram Results: Normal LV size. LVEF estimated at 50-55%. Mild concentric LVH. Apicaldyskinesia. No evidence ofLVthrombuson contrastimaging. MR. Normal LV size and function. Chest x ray: Lungs/Pleura: There isno evidence ofpleural effusion, focal consolidation, or pneumothorax. Pulmonary vascularity: Unremarkable. Heart/mediastinum: cardiomediastinal silhouette is unremarkable. Treatment: Start patient on IV fluid hydration with normal saline 75 cc/h due to history of CHFto avoidfluid overload In your professional opinion, can you please clarify the type of CHF if known? [ ] Chronic Systolic Heart Failure (reduced EF) [ x ] Chronic Diastolic Heart Failure (preserved EF) [ ] Chronic Systolic & Diastolic Heart Failure [ ] Other, please specify [ ] Unable to determine (Template Last Revised: April 2020) MTDD
== END 2023-06-15 13:07 | disposition home or self-care (01) | DRG 698 ==
LOC: EC 18:50 → EEVIPCON 18:50 → 3SCARD 20:46 → OBSVTOIN 06-13 08:03
PROVIDERS: ADMIT Internal Medicine; ATTEND Internal Medicine
DX: T83.511A Infection and inflammatory reaction due to indwelling urethral catheter, initial encounter (principal); A41.59 Other Gram-negative sepsis; I21.4 Non-ST elevation (NSTEMI) myocardial infarction; N17.0 Acute kidney failure with tubular necrosis; J96.01 Acute respiratory failure with hypoxia; R65.20 Severe sepsis without septic shock; I13.0 Hypertensive heart and chronic kidney disease with heart failure and stage 1 through stage 4 chronic kidney disease, or unspecified chronic kidney disease; J44.1 Chronic obstructive pulmonary disease with (acute) exacerbation; Z16.24 Resistance to multiple antibiotics; N18.4 Chronic kidney disease, stage 4 (severe); I50.32 Chronic diastolic (congestive) heart failure; F03.90 Unspecified dementia, unspecified severity, without behavioral disturbance, psychotic disturbance, mood disturbance, and anxiety; T17.918A Gastric contents in respiratory tract, part unspecified causing other injury, initial encounter; I34.0 Nonrheumatic mitral (valve) insufficiency; N39.0 Urinary tract infection, site not specified; B96.4 Proteus (mirabilis) (morganii) as the cause of diseases classified elsewhere; Z86.73 Personal history of transient ischemic attack (TIA), and cerebral infarction without residual deficits; E78.5 Hyperlipidemia, unspecified; E86.0 Dehydration; E87.6 Hypokalemia; T50.2X5A Adverse effect of carbonic-anhydrase inhibitors, benzothiadiazides and other diuretics, initial encounter; N14.19 Nephropathy induced by other drugs, medicaments and biological substances; T44.5X5A Adverse effect of predominantly beta-adrenoreceptor agonists, initial encounter; Z79.02 Long term (current) use of antithrombotics/antiplatelets; Z79.890 Hormone replacement therapy; K21.9 Gastro-esophageal reflux disease without esophagitis; I45.19 Other right bundle-branch block; N26.1 Atrophy of kidney (terminal); Y73.1 Therapeutic (nonsurgical) and rehabilitative gastroenterology and urology devices associated with adverse incidents; Z79.899 Other long term (current) drug therapy; Z79.82 Long term (current) use of aspirin
CPT/HCPCS: 36415; 51702; 71045; 76770; 80048; 80053; 81001; 82150; 83605; 83690; 83735; 83880; 84484; 85025; 85027; 85610; 85730; 87040; 87077; 87086; 87186; 87636; 93005; 93306; 94640; 96365; 96366; 96368; 96375; 99285

== ENCOUNTER 2023-06-27 13:29 | Inpatient (IN) | payer MEDICARE, BC ==
--- NOTE | 2023-06-27 14:18 | ED ---
General Adult HPI - General Chief complaint: GI Bleed Stated complaint: GI Bleed Time Seen by Provider: 06/27/23 13:55 Source: patient, RN notes reviewed, old records reviewed Mode of arrival: EMS Limitations: no limitations, altered mental status - History of Present Illness Initial comments: This is an 82-year-old male who presents to the emergency department from a assisted living facility because he vomited and had some blood clots come up as well as had a bowel movement that looked bloody. Patient denies any abdominal pain patient has chest pain difficulty breathing shortness of breath. Patient denies lightheadedness or dizziness. Patient states he does feel slightly weak. Patient does not know if he is on a blood thinner or not he is on Plavix and aspirin now. Patient denies any fever or chills. Patient denies any headache. - Related Data Home Medications Medication Instructions Recorded Confirmed Atorvastatin [Lipitor] 80 mg PO HS@199906/11/23 06/27/23 Clopidogrel [Plavix] 75 mg PO DAILY@0800 06/11/23 06/27/23 Divalproex [Depakote] 250 mg PO DAILY@1400 06/11/23 06/27/23 Famotidine [Pepcid] 20 mg PO DAILY@0800 06/11/23 06/27/23 Furosemide [Lasix] 20 mg PO DAILY@0800 06/11/23 06/27/23 Lactulose [Constulose] 20 gm PO BID@0800,199906/11/23 06/27/23 Levothyroxine Sodium 25 mcg PO DAILY@0800 06/11/23 06/27/23 Rivastigmine Tartrate [Exelon] 4.5 mg PO BID@0800,199906/11/23 06/27/23 metOLazone 5 mg PO DAILY@0730 06/11/23 06/27/23 Acetaminophen Tab [Tylenol] 650 mg PO BID@0800,199906/12/23 06/27/23 Ammonium Lactate Cream [Lac-Hydrin 1 applic TOPICAL BID@0800,199906/12/23 06/27/23 12% Cream] Ascorbic Acid [Vitamin C] 1,000 mg PO BID@0800,199906/12/23 06/27/23 Aspirin EC [Ecotrin Low Dose] 81 mg PO DAILY@0800 06/12/2324 Cholecalciferol [Vitamin D3 (125 125 mcg PO DAILY@0806/12/23 06/27/23 Mcg = 5000 Iu)] Cranberry 450mg 450 mg PO BID@08,199906/12/23 06/27/23 Lidocaine-Hydrocortisone 3-0.5% 1 applic RECTAL QID PRN 06/12/23 06/27/23 Rectal Cream Liquacel 30 ml PO BID@08,199906/12/23 06/27/23 Potassium Chloride ER [K-Dur 10] 10 meq PO DAILY@0800 06/12/23 06/27/23 Sennosides/Docusate Sodium 2 tab PO BID@08,199906/12/23 06/27/23 [Senna-S 8.6-50 mg Tablet] buPROPion [Wellbutrin] 100 mg PO DAILY@0800 06/12/23 06/27/23 Albuterol Inhaler [Ventolin Hfa 2 puff INHALATION RT-Q4H PRN 06/27/23 06/27/23 Inhaler] Menthol-Zinc Oxide Oint 1 applic TOPICAL DAILY PRN 06/27/23 06/27/23 [Calmoseptine Ointment] Metoprolol Succinate (ER) [Toprol 12.5 mg PO DIRECTED 06/27/23 06/27/23 XL] Phenylephrine HCl/[place] Butter 1 supp RECTAL QID PRN 06/27/23 06/27/23 [Preparation H Suppository] polyethylene glycoL 3350 [Miralax] 17 gm PO DAILY PRN 06/27/23 06/27/23 Allergies Allergy/AdvReac Type Severity Reaction Status Date / Time No Known Allergies Allergy Verified 06/27/23 15:16 Review of Systems ROS Statement: Those systems with pertinent positive or pertinent negative responses have been documented in the HPI. ROS Other: All systems not noted in ROS Statement are negative. Past Medical History Past Medical History: Heart Failure, CVA/TIA, Dementia, GERD/Reflux, Hyperlipidemia, Hypertension, Memory Impairment, Pneumonia Additional Past Medical History / Comment(s): . History of Any Multi-Drug Resistant Organisms: None Reported Past Surgical History: No Surgical Hx Reported Past Psychological History: Anxiety, Depression Smoking Status: Never smoker Past Alcohol Use History: None Reported Past Drug Use History: None Reported General Exam - General Exam Comments Initial Comments: GENERAL: Patient is well-developed and well-nourished. Patient is nontoxic and well- hydrated and is in no acute distress. ENT: Neck is soft and supple. No significant lymphadenopathy is noted. Oropharynx i s clear. Moist mucous membranes. Neck has full range of motion without eliciting any pain. EYES: The sclera were anicteric and conjunctiva were pink and moist. Extraocular movements were intact and pupils were equal round and reactive to light. Eyelids were unremarkable. PULMONARY: Unlabored respirations. Good breath sounds bilaterally. No audible rales rhonchi or wheezing was noted. CARDIOVASCULAR: There is a regular rate and rhythm without any murmurs gallops or rubs. ABDOMEN: Soft and nontender with normal bowel sounds. SKIN: Skin is clear with no lesions or rashes and otherwise unremarkable. RECTAL: Rectal exam had dark maroon stools NEUROLOGIC: Patient is alert and oriented x3. Cranial nerves II through XII are grossly intact. Motor and sensory are also intact. Normal speech, volume and content. Symmetrical smile. MUSCULOSKELETAL: Normal extremities with adequate strength and full range of motion. No lower extremity swelling or edema. No calf tenderness. LYMPHATICS: No significant lymphadenopathy is noted PSYCHIATRIC: Normal psychiatric evaluation. Limitations: no limitations, altered mental status Course Vital Signs 06/27/23 06/27/23 06/27/23 13:32 14:00 15:00 Temperature 97.0 F L Pulse Rate 67 64 60 Respiratory 16 17 17 Rate Blood Pressure 104/79 104/78 105/58 O2 Sat by Pulse 98 97 98 Oximetry Medical Decision Making - Medical Decision Making EKG was interpreted by myself. EKG shows a sinus rhythm at 64 bpm IN interval 164 QRS is 174 QT interval is 485 QTc is 495. Patient has some ST segment elevation in 3 and aVF. Patient also has some ST segment depression in 1 and aVL. Elevation was seen on the 2 previous EKGs. Patient does have a right bundle branch block. Patient was again asked if he was having any chest pain he denied ever having any chest pain Was pt. sent in by a medical professional or institution (, PA, [facility], urgent care, hospital, or correction...) When possible be specific @ -Assisted living facility sent the patient Did you speak to anyone other than the patient for history (EMS, parent, family, police, friend...)? What history was obtained from this source @ -No Did you review nursing and triage notes (agree or disagree)? Why? @ -I reviewed and agree with nursing and triage notes Were old charts reviewed (outside hosp., previous admission, EMS record, old EKG, old radiological studies, urgent care reports/EKG's, correction records)? Report findings @ -I reviewed prior charts and lab work on this patient Differential Diagnosis (chest pain, altered mental status, abdominal pain women, abdominal pain men, vaginal bleeding, weakness, fever, dyspnea, syncope, headache, dizziness, GI bleed, back pain, seizure, CVA, palpatations, mental health, musculoskeletal)? @ -Differential GI Bleed: Esophageal varices, aortoenteric fistula, Temitope-Valdez, gastritis, peptic ulcer disease, diverticulosis, inflammatory bowel disease, hemorrhoids, fissure, colitis, malignancy, Meckels diverticulum, this is not meant to be an all- inclusive list. EKG interpreted by me (3pts min.). @ -As above X-rays interpreted by me (1pt min.). @ -None done CT interpreted by me (1pt min.). @ -None done U/S interpreted by me (1pt. min.). @ -None done What testing was considered but not performed or refused? (CT, X-rays, U/S, labs)? Why? @ -None What meds were considered but not given or refused? Why? @ -None Did you discuss the management of the patient with other professionals (professionals i.e. , PA, CL[facility], lab, RT, psych nurse, drug abuse social worker, jig builder helper, teacher, records officer, showcase maker)? Give summary @ -I spoke with Dr. Wilson agreed to admit the patient to the patient per his request a consult with Dr. Bailey Was smoking cessation discussed for >3mins.? @ -No Was critical care preformed (if so, how long)? @ -No Were there social determinants of health that impacted care today? How? (Homelessness, low income, unemployed, alcoholism, drug addiction, transportation, low edu. Level, literacy, decrease access to med. care, [facility], rehab)? @ -No Was there de-escalation of care discussed even if they declined (Discuss DNR or withdrawal of care, Hospice)? DNR status @ -No What co-morbidities impacted this encounter? (DM, HTN, Smoking, COPD, CAD, Can cer, CVA, ARF, Chemo, Hep., AIDS, mental health diagnosis, sleep apnea, morbid obesity)? @ -None Was patient admitted / discharged? Hospital course, mention meds given and route, prescriptions, significant lab abnormalities, going to OR and other pertinent info. @ -Patient's hemoglobin is stable however guaiac was grossly positive. Undiagnosed new problem with uncertain prognosis? @ -No Drug Therapy requiring intensive monitoring for toxicity (Heparin, Nitro, Insulin, Cardizem)? @ -No Were any procedures done? @ -No Diagnosis/symptom? @ -GI bleed Acute, or Chronic, or Acute on Chronic? @ -Acute Uncomplicated (without systemic symptoms) or Complicated (systemic symptoms)? @ -Complicated Side effects of treatment? @ -No Exacerbation, Progression, or Severe Exacerbation? @ -No Poses a threat to life or bodily function? How? (Chest pain, [place], [place], pneumonia, PE, COPD, DKA, ARF, appy, cholecystitis, CVA, Diverticulitis, Homicidal, Suicidal, threat to staff... and all critical care pts) @ -Yes this could lead to anemia hypoxia and endorgan dysfunction - Lab Data Result diagrams: 06/27/23 14:30 06/27/23 14:30 Lab Results 06/27/23 06/27/23 06/27/23 Range/Units 14:15 14:22 14:30 WBC 25.2 H (3.8-10.6) k/uL RBC 4.70 (4.30-5.90) m/uL Hgb 13.2 D (13.0-17.5) gm/dL Hct 42.2 (39.0-53.0) % MCV 89.7 (80.0-100.0) fL MCH 28.1 (25.0-35.0) pg MCHC 31.3 (31.0-37.0) g/dL RDW 16.5 H (11.5-15.5) % Plt Count 573 H D (150-450) k/uL MPV 7.8 Neutrophils % 86 % Lymphocytes % 8 % Monocytes % 5 % Eosinophils % 0 % Basophils % 0 % Neutrophils # 21.7 H (1.3-7.7) k/uL Lymphocytes # 1.9 (1.0-4.8) k/uL Monocytes # 1.1 H (0-1.0) k/uL Eosinophils # 0.1 (0-0.7) k/uL Basophils # 0.1 (0-0.2) k/uL Hypochromasia Slight Anisocytosis Slight PT (10.0-12.5) sec INR (<1.2) APTT (22.0-30.0) sec Sodium (137-145) mmol/L Potassium (3.5-5.1) mmol/L Chloride (98-107) mmol/L Carbon Dioxide (22-30) mmol/L Anion Gap mmol/L BUN (9-20) mg/dL Creatinine (0.66-1.25) mg/dL Est GFR (CKD-EPI)AfAm (>60 ml/min/1.73 sqM) Est GFR (CKD-EPI)NonAf (>60 ml/min/1.73 sqM) Glucose (74-99) mg/dL Plasma Lactic Acid Collin (0.7-2.0) mmol/L Calcium (8.4-10.2) mg/dL Magnesium (1.6-2.3) mg/dL Total Bilirubin (0.2-1.3) mg/dL AST (17-59) U/L ALT (4-49) U/L Alkaline Phosphatase (38-126) U/L Troponin I (0.000-0.034) ng/mL Total Protein (6.3-8.2) g/dL Albumin (3.5-5.0) g/dL Stool Occult Blood Positive (Negative) Blood Type Blood Type Confirm A Positive Blood Type Recheck Bld Type Recheck Status Antibody Screen Spec Expiration Date 06/27/23 06/27/23 06/27/23 Range/Units 14:30 14:30 14:30 WBC (3.8-10.6) k/uL RBC (4.30-5.90) m/uL Hgb (13.0-17.5) gm/dL Hct (39.0-53.0) % MCV (80.0-100.0) fL MCH (25.0-35.0) pg MCHC (31.0-37.0) g/dL RDW (11.5-15.5) % Plt Count (150-450) k/uL MPV Neutrophils % % Lymphocytes % % Monocytes % % Eosinophils % % Basophils % % Neutrophils # (1.3-7.7) k/uL Lymphocytes # (1.0-4.8) k/uL Monocytes # (0-1.0) k/uL Eosinophils # (0-0.7) k/uL Basophils # (0-0.2) k/uL Hypochromasia Anisocytosis PT 10.8 (10.0-12.5) sec INR 1.0 (<1.2) APTT 22.2 (22.0-30.0) sec Sodium 137 (137-145) mmol/L Potassium 3.5 (3.5-5.1) mmol/L Chloride 95 L (98-107) mmol/L Carbon Dioxide 28 (22-30) mmol/L Anion Gap 14 mmol/L BUN 48 H (9-20) mg/dL Creatinine 1.93 H (0.66-1.25) mg/dL Est GFR (CKD-EPI)AfAm 37 (>60 ml/min/1.73 sqM) Est GFR (CKD-EPI)NonAf 32 (>60 ml/min/1.73 sqM) Glucose 118 H (74-99) mg/dL Plasma Lactic Acid Collin 3.0 H* (0.7-2.0) mmol/L Calcium 8.7 (8.4-10.2) mg/dL Magnesium 2.3 (1.6-2.3) mg/dL Total Bilirubin 0.9 (0.2-1.3) mg/dL AST 20 (17-59) U/L ALT 18 (4-49) U/L Alkaline Phosphatase 94 (38-126) U/L Troponin I (0.000-0.034) ng/mL Total Protein 6.5 (6.3-8.2) g/dL Albumin 3.4 L (3.5-5.0) g/dL Stool Occult Blood (Negative) Blood Type Blood Type Confirm Blood Type Recheck Bld Type Recheck Status Antibody Screen Spec Expiration Date 06/27/23 06/27/23 Range/Units 14:30 14:30 WBC (3.8-10.6) k/uL RBC (4.30-5.90) m/uL Hgb (13.0-17.5) gm/dL Hct (39.0-53.0) % MCV (80.0-100.0) fL MCH (25.0-35.0) pg MCHC (31.0-37.0) g/dL RDW (11.5-15.5) % Plt Count (150-450) k/uL MPV Neutrophils % % Lymphocytes % % Monocytes % % Eosinophils % % Basophils % % Neutrophils # (1.3-7.7) k/uL Lymphocytes # (1.0-4.8) k/uL Monocytes # (0-1.0) k/uL Eosinophils # (0-0.7) k/uL Basophils # (0-0.2) k/uL Hypochromasia Anisocytosis PT (10.0-12.5) sec INR (<1.2) APTT (22.0-30.0) sec Sodium (137-145) mmol/L Potassium (3.5-5.1) mmol/L Chloride (98-107) mmol/L Carbon Dioxide (22-30) mmol/L Anion Gap mmol/L BUN (9-20) mg/dL Creatinine (0.66-1.25) mg/dL Est GFR (CKD-EPI)AfAm (>60 ml/min/1.73 sqM) Est GFR (CKD-EPI)NonAf (>60 ml/min/1.73 sqM) Glucose (74-99) mg/dL Plasma Lactic Acid Collin (0.7-2.0) mmol/L Calcium (8.4-10.2) mg/dL Magnesium (1.6-2.3) mg/dL Total Bilirubin (0.2-1.3) mg/dL AST (17-59) U/L ALT (4-49) U/L Alkaline Phosphatase (38-126) U/L Troponin I 0.048 H* (0.000-0.034) ng/mL Total Protein (6.3-8.2) g/dL Albumin (3.5-5.0) g/dL Stool Occult Blood (Negative) Blood Type A Positive Blood Type Confirm Blood Type Recheck No Previous Record Bld Type Recheck Status CABO Indicated Antibody Screen NEGATIVE Spec Expiration Date 06/30/20232329 Disposition Clinical Impression: GI bleed Disposition: ADMITTED IP TO THIS [facility] Referrals: Jose L Morelos MD [Primary Care Provider] - 1-2 days Time of Disposition: 15:50
[2023-06-27] MEDS: SODIUM CHLORIDE 0.9% 500 ML 500 ML IV STA (14:33)
[2023-06-27] MEDS: PANTOPRAZOLE 40 MG/10 ML VIAL IVP STA (14:35)
[2023-06-27 14:47] LABS: Anisocytosis Slight; Basophils # (A) 0.1 k/uL (0-0.2); Basophils % (A) 0 %; Eosinophils # (A) 0.1 k/uL (0-0.7); Eosinophils % (A) 0 %; HCT 42.2 % (39.0-53.0); Hypochromasia Slight; Lymphocytes # (A) 1.9 k/uL (1.0-4.8); Lymphocytes % (A) 8 %; MCH 28.1 pg (25.0-35.0); MCHC 31.3 g/dL (31.0-37.0); MCV 89.7 fL (80.0-100.0); Mean Platelet Volume 7.8; Monocytes # (A) 1.1 k/uL (0-1.0); Monocytes % (A) 5 %; Neutrophils # (A) 21.7 k/uL (1.3-7.7); Neutrophils % (A) 86 %; RDW 16.5 % (11.5-15.5); WBC 25.2 k/uL (3.8-10.6)
[2023-06-27 14:49] LABS: HGB 13.2 gm/dL (13.0-17.5); Platelet Count 573 k/uL (150-450)
[2023-06-27 14:55] LABS: Partial Thromboplastin Time 22.2 sec (22.0-30.0); Prothrombin Time 10.8 sec (10.0-12.5)
[2023-06-27 15:10] LABS: ALT 18 U/L (4-49); AST 20 U/L (17-59); African American GFR (CKD) 37 (>60 ml/min/1.73 sqM); Albumin 3.4 g/dL (3.5-5.0); Alkaline Phosphatase 94 U/L (38-126); Anion Gap 14 mmol/L; Blood Urea Nitrogen 48 mg/dL (9-20); Calcium 8.7 mg/dL (8.4-10.2); Carbon Dioxide 28 mmol/L (22-30); Chloride 95 mmol/L (98-107); Glucose 118 mg/dL (74-99); Magnesium 2.3 mg/dL (1.6-2.3); Non-African American GFR(CKD) 32 (>60 ml/min/1.73 sqM); Potassium 3.5 mmol/L (3.5-5.1); Sodium 137 mmol/L (137-145); Total Bilirubin 0.9 mg/dL (0.2-1.3); Total Protein 6.5 g/dL (6.3-8.2)
[2023-06-27] MEDS: SODIUM CHLORIDE 0.9% 1,000 ML IV ONE (16:05)
[2023-06-27 16:49] LABS: Anisocytosis Slight; Basophils # (A) 0.1 k/uL (0-0.2); Basophils % (A) 0 %; Eosinophils # (A) 0.1 k/uL (0-0.7); Eosinophils % (A) 0 %; HGB 13.1 gm/dL (13.0-17.5); Hypochromasia Marked; Lymphocytes # (A) 2.6 k/uL (1.0-4.8); Lymphocytes % (A) 10 %; MCH 27.9 pg (25.0-35.0); MCHC 29.7 g/dL (31.0-37.0); MCV 93.8 fL (80.0-100.0); Mean Platelet Volume 7.9; Monocytes # (A) 1.5 k/uL (0-1.0); Monocytes % (A) 6 %; Neutrophils # (A) 22.3 k/uL (1.3-7.7); Neutrophils % (A) 82 %; Platelet Count 523 k/uL (150-450); RBC 4.69 m/uL (4.30-5.90); RDW 16.1 % (11.5-15.5); WBC 27.1 k/uL (3.8-10.6)
[2023-06-27] MEDS ORDERED: ALBUTEROL NEBULIZED 2.5 MG/3 ML INHALATION PRN (16:59)
--- NOTE | 2023-06-27 17:15 | P.HPIM ---
History of Present Illness H&P Date: 06/27/23 Chief Complaint: Maroon stools This is a pleasant 82-year-old patient, follows with visiting physician Dr. Morelos. Chronic stable medical conditions include CHF, dementia, GERD, hypertension, hyperlipidemia, cognitive impairment, anxiety depression. Patient is not the best of historians Patient came in because he was vomited. And some blood clots came up. He also had bowel movement that was maroon in color. Patient does complain of some epigastric discomfort. Patient was here in May of this year with non-STEMI. Was not felt to be a candidate for invasive procedure was medically managed. Patient was on aspirin Plavix. Does feel a bit tired. A bit dizzy. Review of systems: GEN.: Tired EYES: None HEENT: None NECK: None RESPIRATORY: None CARDIOVASCULAR: None GASTROINTESTINAL: [As above GENITOURINARY: None MUSCULOSKELETAL: Joint pains e LYMPHATICS: None HEMATOLOGICAL: None PSYCHIATRY: Forgetful e NEUROLOGICAL: None Social history: Lives at a halfway. Denies smoking. States takes 4-5 drinks a week. Physical examination: VITAL SIGNS: 97, 63, 18, 105 x 58, 98% room air GENERAL: BMI 33.8, reclining bed awake a bit tired. EYES: Pupils equal. Conjunctiva sean l. HEENT: External appearance of nose and ears normal, oral cavity grossly normal. NECK: JVD not raised; masses not palpable. HEART: First and second heart sounds are normal; no edema. LUNGS: Respiratory rate normal; clear to auscultation. ABDOMEN: Soft, nontender, liver spleen not palpable, no masses palpable. PSYCH: Able to answer simple questions but forgetful l. MUSCULOSKELETAL:No Clubbing/cyanosis;muscles-grossly intact. OA NEUROLOGICAL: Cranial nerves grossly intact; no facial asymmetry, power and sensation grossly intact. LYMPHATICS: No lymph nodes palpable in the axilla and neck INVESTIGATIONS, reviewed in the clinical context: June 26: White count 27.1 hemoglobin 13.1 platelets 523 potassium 3.5 BUN 48 creatinine 1.93 troponin I 0.048 EKG tracing personally reviewed by me-right bundle astrid block. Sinus rhythm. ST/T wave changes Previous labs: BUN 50 creatinine 2.24 on June 23, 2023 Assessment plan: -Acute upper GI bleeding the patient was recently been on aspirin and Plavix. Also had maroon stool. Aspirin Plavix-held. IV PPI. GI consulted. Follow H&H -CAD with recent non-ST elevation SC, last month Hold aspirin and Plavix for now Telemetry -Chronic congestive heart failure from CAD. Diastolic dysfunction EF 50% -Depression and anxiety Wellbutrin 100 mg a day -Chronic kidney disease stage III likely nephrosclerosis -Hypothyroid Levothyroxine 25 mcg a day -Severe cognitive impairment from late onset Alzheimer's dementia -GERD PPI -Essential hypertension Toprol-XL Discussed with patient. Past Medical History Past Medical History: Heart Failure, CVA/TIA, Dementia, GERD/Reflux, Hyperlipidemia, Hypertension, Memory Impairment, Pneumonia Additional Past Medical History / Comment(s): . History of Any Multi-Drug Resistant Organisms: None Reported Past Surgical History: No Surgical Hx Reported Past Psychological History: Anxiety, Depression Smoking Status: Never smoker Past Alcohol Use History: None Reported Past Drug Use History: None Reported Medications and Allergies Home Medications Medication Instructions Recorded Confirmed Type Atorvastatin [Lipitor] 80 mg PO HS@199906/11/23 06/27/23 History Clopidogrel [Plavix] 75 mg PO DAILY@79906/11/23 06/27/23 History Divalproex [Depakote] 250 mg PO DAILY@1400 06/11/23 06/27/23 History Famotidine [Pepcid] 20 mg PO DAILY@0806/11/23 06/27/23 History Furosemide [Lasix] 20 mg PO DAILY@0806/11/23 06/27/23 History Lactulose [Constulose] 20 gm PO BID@06/11/23 06/27/23 History Levothyroxine Sodium 25 mcg PO DAILY@0806/11/23 06/27/23 History Rivastigmine Tartrate [Exelon] 4.5 mg PO BID@799,199906/11/23 06/27/23 History metOLazone 5 mg PO DAILY@0706/11/23 06/27/23 History Acetaminophen Tab [Tylenol] 650 mg PO BID@08,199906/12/23 06/27/23 History Ammonium Lactate Cream [Lac-Hydrin 1 applic TOPICAL BID@799,199906/12/23 06/27/23 History 12% Cream] Ascorbic Acid [Vitamin C] 1,000 mg PO BID@08,199906/12/23 06/27/23 History Aspirin EC [Ecotrin Low Dose] 81 mg PO DAILY@79906/12/23 06/27/23 History Cholecalciferol [Vitamin D3 (125 125 mcg PO DAILY@0800 06/12/23 06/27/23 History Mcg = 5000 Iu)] Cranberry 450mg 450 mg PO BID@799,199906/12/23 06/27/23 History Lidocaine-Hydrocortisone 3-0.5% 1 applic RECTAL QID PRN 06/12/23 06/27/23 History Rectal Cream Liquacel 30 ml PO BID@0800,199906/12/23 06/27/23 History Potassium Chloride ER [K-Dur 10] 10 meq PO DAILY@79906/12/23 06/27/23 History Sennosides/Docusate Sodium 2 tab PO BID@08,199906/12/23 06/27/23 History [Senna-S 8.6-50 mg Tablet] buPROPion [Wellbutrin] 100 mg PO DAILY@79906/12/23 06/27/23 History Albuterol Inhaler [Ventolin Hfa 2 puff INHALATION RT-Q4H PRN 06/27/23 06/27/23 History Inhaler] Menthol-Zinc Oxide Oint 1 applic TOPICAL DAILY PRN 06/27/23 06/27/23 History [Calmoseptine Ointment] Metoprolol Succinate (ER) [Toprol 12.5 mg PO DIRECTED 06/27/23 06/27/23 History XL] Phenylephrine HCl/[place] Butter 1 supp RECTAL QID PRN 06/27/23 06/27/23 History [Preparation H Suppository] polyethylene glycoL 3350 [Miralax] 17 gm PO DAILY PRN 06/27/23 06/27/23 History Allergies Allergy/AdvReac Type Severity Reaction Status Date / Time No Known Allergies Allergy Verified 06/27/23 15:16 Physical Exam Vitals: Vital Signs Temp Pulse Resp BP Pulse Ox 06/27/23 15:53 63 18 126/65 97 06/27/23 15:00 60 17 105/58 98 06/27/23 14:00 64 17 104/78 97 06/27/23 13:32 97.0 F L 67 16 104/79 98 Intake and Output 06/27/23 06/27/23 06/27/23 06:59 14:59 22:59 Other: Weight 113.035 kg Results CBC & Chem 7: 06/27/23 16:05 06/27/23 14:30 Labs: Abnormal Lab Results - Last 24 Hours (Table) 06/27/23 06/27/23 06/27/23 Range/Units 14:30 14:30 14:30 WBC 25.2 H (3.8-10.6) k/uL MCHC (31.0-37.0) g/dL RDW 16.5 H (11.5-15.5) % Plt Count 573 H D (150-450) k/uL Neutrophils # 21.7 H (1.3-7.7) k/uL Monocytes # 1.1 H (0-1.0) k/uL Chloride 95 L (98-107) mmol/L BUN 48 H (9-20) mg/dL Creatinine 1.93 H (0.66-1.25) mg/dL Glucose 118 H (74-99) mg/dL Plasma Lactic Acid Collin 3.0 H* (0.7-2.0) mmol/L Troponin I (0.000-0.034) ng/mL Albumin 3.4 L (3.5-5.0) g/dL 06/27/23 06/27/23 Range/Units 14:30 16:05 WBC 27.1 H (3.8-10.6) k/uL MCHC 29.7 L (31.0-37.0) g/dL RDW 16.1 H (11.5-15.5) % Plt Count 523 H (150-450) k/uL Neutrophils # 22.3 H (1.3-7.7) k/uL Monocytes # 1.5 H (0-1.0) k/uL Chloride (98-107) mmol/L BUN (9-20) mg/dL Creatinine (0.66-1.25) mg/dL Glucose (74-99) mg/dL Plasma Lactic Acid Collin (0.7-2.0) mmol/L Troponin I 0.048 H* (0.000-0.034) ng/mL Albumin (3.5-5.0) g/dL
[2023-06-27] MEDS: ACETAMINOPHEN TAB 325 MG TAB PO SCH (19:30)
[2023-06-27] MEDS: DONEPEZIL 10 MG TAB PO SCH (19:30)
[2023-06-27] MEDS: ATORVASTATIN 80 MG TAB PO SCH (19:31)
[2023-06-27] MEDS: AMMONIUM LACTATE 12% CREAM 140 GM TUBE TOPICAL SCH (19:31)
[2023-06-27 21:26] LABS: Anisocytosis Slight; Basophils # (A) 0.1 k/uL (0-0.2); Basophils % (A) 0 %; Eosinophils # (A) 0.1 k/uL (0-0.7); Eosinophils % (A) 0 %; HCT 38.2 % (39.0-53.0); HGB 11.6 gm/dL (13.0-17.5); Hypochromasia Slight; Lymphocytes # (A) 2.6 k/uL (1.0-4.8); Lymphocytes % (A) 14 %; MCH 27.3 pg (25.0-35.0); MCHC 30.4 g/dL (31.0-37.0); Mean Platelet Volume 7.8; Monocytes % (A) 5 %; Neutrophils # (A) 14.3 k/uL (1.3-7.7); Neutrophils % (A) 78 %; Platelet Count 485 k/uL (150-450); RBC 4.24 m/uL (4.30-5.90); RDW 16.6 % (11.5-15.5); WBC 18.3 k/uL (3.8-10.6)
[2023-06-27] MEDS: PANTOPRAZOLE 40 MG/10 ML VIAL IVP SCH (22:36)
[2023-06-28 08:44] LABS: Anisocytosis Slight; Basophils # (A) 0.1 k/uL (0-0.2); Basophils % (A) 0 %; Eosinophils # (A) 0.1 k/uL (0-0.7); Eosinophils % (A) 1 %; HCT 36.6 % (39.0-53.0); HGB 11.5 gm/dL (13.0-17.5); Hypochromasia Slight; Lymphocytes # (A) 2.1 k/uL (1.0-4.8); Lymphocytes % (A) 13 %; MCH 28.4 pg (25.0-35.0); MCHC 31.4 g/dL (31.0-37.0); MCV 90.6 fL (80.0-100.0); Mean Platelet Volume 7.9; Monocytes # (A) 1.1 k/uL (0-1.0); Monocytes % (A) 7 %; Neutrophils # (A) 12.6 k/uL (1.3-7.7); Neutrophils % (A) 77 %; Platelet Count 486 k/uL (150-450); RBC 4.04 m/uL (4.30-5.90); RDW 16.5 % (11.5-15.5); WBC 16.3 k/uL (3.8-10.6)
[2023-06-28 08:46] LABS: African American GFR (CKD) 40 (>60 ml/min/1.73 sqM); Anion Gap 9 mmol/L; Blood Urea Nitrogen 48 mg/dL (9-20); Carbon Dioxide 30 mmol/L (22-30); Chloride 98 mmol/L (98-107); Glucose 98 mg/dL (74-99); Non-African American GFR(CKD) 35 (>60 ml/min/1.73 sqM); Potassium 3.4 mmol/L (3.5-5.1); Sodium 137 mmol/L (137-145)
[2023-06-28] MEDS: buPROPion 100 MG TAB PO SCH (09:15)
[2023-06-28] MEDS: LEVOTHYROXINE 25 MCG TAB PO SCH (09:15)
--- NOTE | 2023-06-28 11:24 | P.CONS ---
History of Present Illness - Reason for Consult Consult date: 06/28/23 GI bleed Requesting physician: Bob Arthur - Chief Complaint GI bleed - History of Present Illness This is a pleasant 82-year-old male who is a poor historian and most of the HPI is obtained through the chart. Patient apparently lives at residential living and was brought in for nausea and vomiting. Reportedly patient had vomited up some blood clots and had noticed maroon-colored stools as well. Patient states he vomited about 10 times yesterday he did not notice any blood in his emesis. He is unsure if he has had any blood in his bowel movements. He denies any abdominal pain, nausea or vomiting. He is on aspirin and Plavix which was taken yesterday morning but denies any anticoagulation. He is unsure of any regular NSAID use. States that he has had multiple colonoscopies in the past he is unsure when his last and denies any known upper endoscopy. Past medical history includes congestive heart failure, dementia, GERD, hypertension, hyperlipidemia cognitive impairment anxiety and depression. Patient does have a legal guardian. Patient came in with a hemoglobin of 13.1 at that time he was also noted to have leukocytosis with a WBC of 27. He has had a 2 g drop in his hemoglobin. Today's labs WBC 16.3 hemoglobin 11.5 hematocrit 36 platelet count 486,000 sodium 137 potassium 3.4 BUN 48 creatinine 1.8. He has been afebrile. He denies any nausea or vomiting currently. He has been NPO. Nursing reports he had a maroon-colored stool last night when he came up from the emergency department. None since that time. He has continued to deny any abdominal pain. Review of Systems REVIEW OF SYSTEMS: CARDIOPULMONARY: No chest pain or shortness of breath. Gastrointestinal: No abdominal pain. Multiple episodes of emesis yesterday, reportedly with blood.. No hematemesis, coffee-ground emesis. No rectal ble eding, maroon-colored stools reported. GENITOURINARY: No dysuria or hematuria. MUSCULOSKELETAL: Reports normal range of motion. SKIN: No rashes. No jaundice. ENDOCRINE: No chills, fevers. No excessive weight gain or loss. No polydipsia or polyuria. PSYCHIATRIC: Unremarkable. NEUROLOGY: No change in mental status. Denies dizziness, headache. Patient has cognitive delay, history of dementia ENT: Vision unremarkable. CONSTITUTIONAL: No recent weight loss. No fever, chills, night sweats. Past Medical History Past Medical History: Heart Failure, CVA/TIA, Dementia, GERD/Reflux, Hyperlipidemia, Hypertension, Memory Impairment, Pneumonia Additional Past Medical History / Comment(s): . History of Any Multi-Drug Resistant Organisms: None Reported Past Surgical History: No Surgical Hx Reported Past Psychological History: Anxiety, Depression Smoking Status: Never smoker Past Alcohol Use History: None Reported Past Drug Use History: None Reported Medications and Allergies Home Medications Medication Instructions Recorded Confirmed Type Atorvastatin [Lipitor] 80 mg PO HS@199906/11/23 06/27/23 History Clopidogrel [Plavix] 75 mg PO DAILY@0800 06/11/23 06/27/23 History Divalproex [Depakote] 250 mg PO DAILY@1400 06/11/23 06/27/23 History Famotidine [Pepcid] 20 mg PO DAILY@0800 06/11/23 06/27/23 History Furosemide [Lasix] 20 mg PO DAILY@0800 06/11/23 06/27/23 History Lactulose [Constulose] 20 gm PO BID@0800,199906/11/23 06/27/23 History Levothyroxine Sodium 25 mcg PO DAILY@0800 06/11/23 06/27/23 History Rivastigmine Tartrate [Exelon] 4.5 mg PO BID@0800,199906/11/23 06/27/23 History metOLazone 5 mg PO DAILY@0730 06/11/23 06/27/23 History Acetaminophen Tab [Tylenol] 650 mg PO BID@0800,199906/12/23 06/27/23 History Ammonium Lactate Cream [Lac-Hydrin 1 applic TOPICAL BID@08,199906/12/2304/20 History 12% Cream] Ascorbic Acid [Vitamin C] 1,000 mg PO BID@08,199906/12/23 06/27/23 History Aspirin EC [Ecotrin Low Dose] 81 mg PO DAILY@0800 06/12/23 06/27/23 History Cholecalciferol [Vitamin D3 (125 125 mcg PO DAILY@0800 06/12/23 06/27/23 History Mcg = 5000 Iu)] Cranberry 450mg 450 mg PO BID@0800,199906/12/23 06/27/23 History Lidocaine-Hydrocortisone 3-0.5% 1 applic RECTAL QID PRN 06/12/23 06/27/23 History Rectal Cream Liquacel 30 ml PO BID@799,199906/12/23 06/27/23 History Potassium Chloride ER [K-Dur 10] 10 meq PO DAILY@0806/12/23 06/27/23 History Sennosides/Docusate Sodium 2 tab PO BID@799,199906/12/23 06/27/23 History [Senna-S 8.6-50 mg Tablet] buPROPion [Wellbutrin] 100 mg PO DAILY@79906/12/23 06/27/23 History Albuterol Inhaler [Ventolin Hfa 2 puff INHALATION RT-Q4H PRN 06/27/23 06/27/23 History Inhaler] Menthol-Zinc Oxide Oint 1 applic TOPICAL DAILY PRN 06/27/23 06/27/23 History [Calmoseptine Ointment] Metoprolol Succinate (ER) [Toprol 12.5 mg PO DAILY@79906/27/23 06/27/23 History XL] Phenylephrine HCl/[place] Butter 1 supp RECTAL QID PRN 06/27/23 06/27/23 History [Preparation H Suppository] polyethylene glycoL 3350 [Miralax] 17 gm PO DAILY PRN 06/27/23 06/27/23 History Allergies Allergy/AdvReac Type Severity Reaction Status Date / Time No Known Allergies Allergy Verified 06/27/23 15:16 Physical Exam Vitals: Vital Signs Temp Pulse Pulse Resp BP BP Pulse Ox 06/28/23 07:18 97.8 F 64 16 121/81 94 L 06/28/23 01:24 97.8 F 68 16 122/80 97 06/27/23 22:25 16 06/27/23 21:46 98.2 F 65 16 129/85 94 L 06/27/23 21:27 97.6 F 67 16 126/72 96 06/27/23 15:53 63 18 126/65 97 06/27/23 15:00 60 17 105/58 98 06/27/23 14:00 64 17 104/78 97 06/27/23 13:32 97.0 F L 67 16 104/79 98 Intake and Output 06/27/23 06/28/23 06/28/23 22:59 06:59 14:59 Intake Total 0 Output Total 450 Balance 0 -450 Intake: Oral 0 Output: Urine 450 Other: Voiding Method Indwelling Catheter Indwelling Catheter Weight 113.035 kg General appearance: The patient is alert, oriented, appears in no acute distress. HET: Head is normocephalic and atraumatic. Conjunctiva pink. Sclera anicteric. Neck: Supple without lymphadenopathy. Trachea midline. Heart: Regular. Lungs: Equal expansion, normal respiratory effort. Abdomen: Soft, nontender, nondistended with bowel sounds. No guarding or rigidity. Skin: No rashes. No jaundice. Extremities: Normal skin color and turgor. No pedal edema. Neurological: No focal deficits. Alert and oriented x3. Results CBC & Chem 7: 06/28/23 07:43 06/28/23 07:43 Labs: Abnormal Lab Results - Last 24 Hours (Table) 06/27/23 06/27/23 06/27/23 Range/Units 14:30 14:30 14:30 WBC 25.2 H (3.8-10.6) k/uL RBC (4.30-5.90) m/uL Hgb (13.0-17.5) gm/dL Hct (39.0-53.0) % MCHC (31.0-37.0) g/dL RDW 16.5 H (11.5-15.5) % Plt Count 573 H D (150-450) k/uL Neutrophils # 21.7 H (1.3-7.7) k/uL Monocytes # 1.1 H (0-1.0) k/uL Potassium (3.5-5.1) mmol/L Chloride 95 L (98-107) mmol/L BUN 48 H (9-20) mg/dL Creatinine 1.93 H (0.66-1.25) mg/dL Glucose 118 H (74-99) mg/dL Plasma Lactic Acid Collin 3.0 H* (0.7-2.0) mmol/L Calcium (8.4-10.2) mg/dL Troponin I (0.000-0.034) ng/mL Albumin 3.4 L (3.5-5.0) g/dL 06/27/23 06/27/23 06/27/23 Range/Units 14:30 16:05 17:45 WBC 27.1 H (3.8-10.6) k/uL RBC (4.30-5.90) m/uL Hgb (13.0-17.5) gm/dL Hct (39.0-53.0) % MCHC 29.7 L (31.0-37.0) g/dL RDW 16.1 H (11.5-15.5) % Plt Count 523 H (150-450) k/uL Neutrophils # 22.3 H (1.3-7.7) k/uL Monocytes # 1.5 H (0-1.0) k/uL Potassium (3.5-5.1) mmol/L Chloride (98-107) mmol/L BUN (9-20) mg/dL Creatinine (0.66-1.25) mg/dL Glucose (74-99) mg/dL Plasma Lactic Acid Collin 2.2 H* (0.7-2.0) mmol/L Calcium (8.4-10.2) mg/dL Troponin I 0.048 H* (0.000-0.034) ng/mL Albumin (3.5-5.0) g/dL 06/27/23 06/28/23 06/28/23 Range/Units 21:04 07:43 07:43 WBC 18.3 H 16.3 H (3.8-10.6) k/uL RBC 4.24 L 4.04 L (4.30-5.90) m/uL Hgb 11.6 L 11.5 L (13.0-17.5) gm/dL Hct 38.2 L 36.6 L (39.0-53.0) % MCHC 30.4 L (31.0-37.0) g/dL RDW 16.6 H 16.5 H (11.5-15.5) % Plt Count 485 H 486 H (150-450) k/uL Neutrophils # 14.3 H 12.6 H (1.3-7.7) k/uL Monocytes # 1.1 H (0-1.0) k/uL Potassium 3.4 L (3.5-5.1) mmol/L Chloride (98-107) mmol/L BUN 48 H (9-20) mg/dL Creatinine 1.81 H (0.66-1.25) mg/dL Glucose (74-99) mg/dL Plasma Lactic Acid Collin (0.7-2.0) mmol/L Calcium 8.0 L (8.4-10.2) mg/dL Troponin I (0.000-0.034) ng/mL Albumin (3.5-5.0) g/dL Assessment and Plan (1) GI bleed Narrative/Plan: 82-year-old male brought in for multiple episodes of emesis with noted blood c lots and maroon-colored stools. No previous history of known GI bleed. 6 patient came in with a normal hemoglobin of 13 with a 2 g drop. Had repeated maroon-colored stool throughout the night. Unclear etiology of GI bleed however does appear to be likely upper GI bleed. Recommend proceeding with upper endoscopy to evaluate for possible upper GI blood source. Avoid NSAIDs, hold aspirin and Plavix. Current Visit: Yes Status: Acute Code(s): K92.2 - GASTROINTESTINAL HEMORRHAGE, UNSPECIFIED SNOMED Code(s): 72510264 (2) Vomiting Current Visit: No Status: Acute Code(s): R11.10 - VOMITING, UNSPECIFIED SNOMED Code(s): 249902530 (3) Coronary artery disease Current Visit: Yes Status: Acute Code(s): I25.10 - ATHSCL HEART DISEASE OF [place] CORONARY ARTERY W/O ANG PCTRS SNOMED Code(s): 15675569 (4) Dementia Current Visit: Yes Status: Acute Code(s): F03.90 - UNSP DEMENTIA, UNSP SEVERITY, WITHOUT BEH/PSYCH/MOOD/ANX SNOMED Code(s): 24953813 (5) COPD (chronic obstructive pulmonary disease) Current Visit: Yes Status: Acute Code(s): J44.9 - CHRONIC OBSTRUCTIVE PULMONARY DISEASE, UNSPECIFIED SNOMED Code(s): 24859511 (6) GERD (gastroesophageal reflux disease) Current Visit: Yes Status: Acute Code(s): K21.9 - GASTRO-ESOPHAGEAL REFLUX DISEASE WITHOUT ESOPHAGITIS SNOMED Code(s): 483007443 Plan: 1. Continue symptomatic and supportive care 2. N.p.o. 3. Hold aspirin and Plavix 4. Avoid NSAIDs 5. Continue Protonix 40 mg daily 6. Will proceed with EGD today 7. Please obtain consent from legal guardian Thank you for this consultation, we will continue to follow. Dr. Nisa Rainey I agree with the dictator's note, documented as a scribe by Bernadette Rod.
--- NOTE | 2023-06-28 12:04 | P.PN ---
Progress Note - Text Progress Note Date: 06/28/23 Chief Complaint: Maroon stools This is a pleasant 82-year-old patient, follows with visiting physician Dr. Morelos. Chronic stable medical conditions include CHF, dementia, GERD, hypertension, hyperlipidemia, cognitive impairment, anxiety depression. Patient is not the best of historians Patient came in because he was vomited. And some blood clots came up. He also had bowel movement that was maroon in color. Patient does complain of some epigastric discomfort. Patient was here in May of this year with non-STEMI. Was not felt to be a candidate for invasive procedure was medically managed. Patient was on aspirin Plavix. Does feel a bit tired. A bit dizzy. June 27: Patient had some brown stool when he came to the floor last night. N.p.o. today. Pending endoscopy. Tired. Slight abdominal discomfort. Active Medications Acetaminophen (Acetaminophen Tab 325 Mg Tab) 650 mg PO BID@ [facility] Last Admin: 06/28/23 09:16 Dose: Not Given Albuterol Sulfate (Albuterol Nebulized 2.5 Mg/3 Ml) 2.5 mg INHALATION RT-Q4H PRN PRN Reason: Shortness Of Breath Or Wheezing Atorvastatin Calcium (Atorvastatin 80 Mg Tab) 80 mg PO HS@1999 [facility] Last Admin: 06/27/23 19:31 Dose: 80 mg Bupropion HCl (Bupropion 100 Mg Tab) 100 mg PO DAILY@0800 [facility] Last Admin: 06/28/23 09:15 Dose: 100 mg Divalproex Sodium (Divalproex 250 Mg Tablet.) 250 mg PO DAILY@1400 [facility] Donepezil HCl (Donepezil 10 Mg Tab) 10 mg PO HS@1999 [facility] Last Admin: 06/27/23 19:30 Dose: 10 mg Lactic Acid (Ammonium Lactate 12% Cream 140 Gm Tube) 1 applic TOPICAL BID@ [facility]; Protocol Last Admin: 06/28/23 09:14 Dose: 1 applic Levothyroxine Sodium (Levothyroxine 25 Mcg Tab) 25 mcg PO DAILY@0800 [facility] Last Admin: 06/28/23 09:15 Dose: 25 mcg Pantoprazole Sodium (Pantoprazole 40 Mg/10 Ml Vial) 40 mg IVP BID [facility] Last Admin: 06/28/23 09:15 Dose: 40 mg Social history: Lives at a [facility]. Denies smoking. States takes 4-5 drinks a week. Physical examination: VITAL SIGNS: 97.8, 64, 16, 121 x 81, 94% room air GENERAL: Reclining bed awake a bit tired. EYES: Pupils equal. Conjunctiva sean l. HEENT: External appearance of nose and ears normal, oral cavity grossly normal. NECK: JVD not raised; masses not palpable. HEART: First and second heart sounds are normal; no edema. LUNGS: Respiratory rate normal; clear to auscultation. ABDOMEN: Soft, nontender, liver spleen not palpable, no masses palpable. PSYCH: Able to answer simple questions but forgetful l. MUSCULOSKELETAL:No Clubbing/cyanosis;muscles-grossly intact. OA INVESTIGATIONS, reviewed in the clinical context: June 27: White count 16.3 hemoglobin 11.5 platelets 46 potassium 3.4 creatinine 1.81 June 26: White count 27.1 hemoglobin 13.1 platelets 523 potassium 3.5 BUN 48 creatinine 1.93 troponin I 0.048 EKG tracing personally reviewed by me-right bundle astrid block. Sinus rhythm. ST/T wave changes Previous labs: BUN 50 creatinine 2.24 on June 23, 2023 Assessment plan: -Acute upper GI bleeding the patient was recently been on aspirin and Plavix. Also had maroon stool.: Slow to respond Aspirin Plavix-held. IV PPI. GI-for endoscopy today Follow H&H -CAD with recent non-ST elevation [place], last month Hold aspirin and Plavix for now Telemetry -Acute GI bleed blood loss anemia Follow H&H -Chronic congestive heart failure from CAD. Diastolic dysfunction EF 50%: Stable -Depression and anxiety Wellbutrin 100 mg a day -Chronic kidney disease stage III likely nephrosclerosis -Hypothyroid Levothyroxine 25 mcg a day -Severe cognitive impairment from late onset Alzheimer's dementia -GERD PPI -Essential hypertension Toprol-XL NPO. Pending endoscopy. Past Medical History Past Medical History: Heart Failure, CVA/TIA, Dementia, GERD/Reflux, Hyperlipidemia, Hypertension, Memory Impairment, Pneumonia Additional Past Medical History / Comment(s): . History of Any Multi-Drug Resistant Organisms: None Reported Past Surgical History: No Surgical Hx Reported Past Psychological History: Anxiety, Depression Smoking Status: Never smoker Past Alcohol Use History: None Reported Past Drug Use History: None Reported
[2023-06-28] MEDS: IV FLUID CONTINUATION 500 ML IV ONE (12:32)
[2023-06-28] MEDS ORDERED: LIDOCAINE 2% (PF) 20 MG/ML 5 ML VIAL ONE (13:34)
[2023-06-28] MEDS ORDERED: PROPOFOL 10 MG/ML 20 ML VIAL IV ONE (13:34)
--- NOTE | 2023-06-28 13:47 | P.PCN ---
Date of Procedure: 06/28/23 Procedure(s) Performed: BRIEF HISTORY: Patient is a 82-year-old, pleasant, white male admitted to hospital yesterday when he presented with multiple episodes of coffee-ground emesis and maroon coloredstools.. initial hemoglobin was 13 and subsequently dropped to 11 g/dL. He scheduled for an upper endoscopy to evaluate further. Patient presently on aspirin and Plavix the last dose was yesterday. PROCEDURE PERFORMED: Esophagogastroduodenoscopy. PREOPERATIVE DIAGNOSIS: Acute upper GI bleed. IV sedation per anesthesia. PROCEDURE: After informed consent was obtained, the patient was brought into the endoscopy unit. IV sedation was administered by Anesthesia under continuous monitoring. Initially the Olympus GIF-140 video endoscope was inserted into the mouth. Esophagus intubated without any difficulty. It was gradually advanced into the stomach and duodenum and carefully examined. The bulb and the second part of the duodenum appeared normal. part of the duodenum there was a 5 limited duodenal polyp that was not biopsied as patient is presently on aspirin and Plavix.The scope at this time was withdrawn to the stomach, adequately insufflated with air, and upon careful examination, mucosa of the antrum, body, cardia and the fundus appeared normal. The scope was then withdrawn into the e sophagus. Small hiatal hernia noted.The GE junction was located at 39 cm from the incisors. The esophagus appeared normal. There were no erosions or ulcerations seen and the patient tolerated the procedure well. IMPRESSION: 1. Small hiatal hernia 2..No evidence of active upper GI bleed 3. 5 mm duodenal polyp, not biopsied RECOMMENDATIONS: The findings of this examination were discussed with the patient ..Start on clear liquid diet. Continue to monitor CBC and consider colonoscopy if he continues to have active GI bleed.
[2023-06-28] MEDS: DIVALPROEX 250 MG TABLET.DR PO SCH (15:14)
[2023-06-29 11:15] LABS: HCT 33.3 % (39.6-50.0); HGB 10.1 g/dL (13.0-17.0); MCH 27.3 pg (27.0-32.0); MCHC 30.3 g/dL (32.0-37.0); Mean Platelet Volume 10.3 FL (9.5-12.2); NRBC Per 100 WBC 0 X 10*3/uL (0.00-0.01); Platelet Count 435 X 10*3/uL (140-440); RDW 17.7 % (11.5-14.5); WBC 13.28 X 10*3/uL (4.50-10.00)
[2023-06-29] MEDS: PEG 3350 (236 GM/BTL) + LYTES 4,000 ML BOTTLE PO ONE (11:17)
[2023-06-29 11:50] LABS: BUN/Creat Ratio 21.24 Ratio (12.00-20.00); Blood Urea Nitrogen 36.1 mg/dL (9.0-27.0); Calcium 8.3 mg/dL (8.7-10.3); Carbon Dioxide 28.4 mmol/L (21.6-31.8); Chloride 98 mmol/L (96-109); Glucose 104 mg/dL (70-110); Sodium 139 mmol/L (135-145)
[2023-06-29] MEDS ORDERED: Potassium Replacement Protocol 1 EACH MISC MISCELLANE PRN (14:49)
--- NOTE | 2023-06-29 14:56 | P.PN ---
Subjective Progress Note Date: 06/29/23 Principal diagnosis: This is a pleasant 82-year-old male who is a poor historian and most of the HPI is obtained through the chart. Patient apparently lives at residential living and was brought in for nausea and vomiting. Reportedly patient had vomited up some blood clots and had noticed maroon-colored stools as well. Patient states he vomited about 10 times yesterday he did not notice any blood in his emesis. He is unsure if he has had any blood in his bowel movements. He denies any abdominal pain, nausea or vomiting. He is on aspirin and Plavix which was taken yesterday morning but denies any anticoagulation. He is unsure of any regular NSAID use. States that he has had multiple colonoscopies in the past he is unsure when his last and denies any known upper endoscopy. Past medical history includes congestive heart failure, dementia, GERD, hypertension, hyperlipidemia cognitive impairment anxiety and depression. Patient does have a legal guardian. Patient came in with a hemoglobin of 13.1 at that time he was also noted to have leukocytosis with a WBC of 27. He has had a 2 g drop in his hemoglobin. Today's labs WBC 16.3 hemoglobin 11.5 hematocrit 36 platelet count 486,000 sodium 137 potassium 3.4 BUN 48 creatinine 1.8. He has been afebrile. He denies any nausea or vomiting currently. He has been NPO. Nursing reports he had a maroon-colored stool last night when he came up from the emergency department. None since that time. He has continued to deny any abdominal pain. 05/30/2023 Patient seen and examined today as a follow-up. He denies any abdominal pain, nausea or vomiting. Hemoglobin is stable at 10.1, WBC 13.2, sodium 139 potass ium 3.0 BUN 36 creatinine 1.7. No reported maroon stool this morning. Objective - Vital Signs Vital signs: Vital Signs Temp 98.2 F 06/29/23 07:19 Pulse 66 06/29/23 07:19 Resp 17 06/29/23 07:19 BP 121/69 06/29/23 07:19 Pulse Ox 95 06/29/23 07:19 FiO2 Intake & Output 06/28/23 06/29/23 06/29/23 18:59 06:59 18:59 Intake Total 850 120 Output Total 500 450 Balance 350 -330 Intake: IV 250 Intake, IV Titration 600 Amount Sodium Chloride 0.9% 1, 600 000 ml @ 50 mls/hr IV . Q20H ONE Rx#:[id number] Oral 120 Output: Urine 500 450 Other: Voiding Method Indwelling Catheter Indwelling Catheter - Exam General appearance: The patient is alert, oriented, appears in no acute distress. HET: Head is normocephalic and atraumatic. Conjunctiva pink. Sclera anicteric. Neck: Supple without lymphadenopathy. Abdomen: Soft, nontender, nondistended with bowel sounds. No guarding or rigidity. Extremities: Normal skin color and turgor. No pedal edema Skin: No rashes, no jaundice Neurological: No focal deficits. Alert and oriented. - Labs CBC & Chem 7: 06/29/23 06:49 06/29/23 06:49 Assessment and Plan (1) GI bleed Narrative/Plan: 82-year-old male brought in for multiple episodes of emesis with noted blood clots and maroon-colored stools. No previous history of known GI bleed. 6 pat ient came in with a normal hemoglobin of 13 with a 2 g drop. Had repeated maroon-colored stool throughout the night. Unclear etiology of GI bleed however does appear to be likely upper GI bleed. Recommend proceeding with upper endoscopy to evaluate for possible upper GI blood source. Avoid NSAIDs, hold aspirin and Plavix. Patient underwent upper endoscopy with findings of small hiatal hernia, a 5 mm duodenal polyp with no evidence of active upper GI bleed. Recommendation to proceed with colonoscopy. This was discussed with patient who is agreeable. Current Visit: Yes Status: Acute Code(s): K92.2 - GASTROINTESTINAL HEMORRHAGE, UNSPECIFIED SNOMED Code(s): 05978510 (2) Vomiting Current Visit: No Status: Acute Code(s): R11.10 - VOMITING, UNSPECIFIED SNOMED Code(s): 127664731 (3) Coronary artery disease Current Visit: Yes Status: Acute Code(s): I25.10 - ATHSCL HEART DISEASE OF [place] CORONARY ARTERY W/O ANG PCTRS SNOMED Code(s): 36186638 (4) Dementia Current Visit: Yes Status: Acute Code(s): F03.90 - UNSP DEMENTIA, UNSP SEVERITY, WITHOUT BEH/PSYCH/MOOD/ANX SNOMED Code(s): 70761842 (5) COPD (chronic obstructive pulmonary disease) Current Visit: Yes Status: Acute Code(s): J44.9 - CHRONIC OBSTRUCTIVE PULMON [place] DISEASE, UNSPECIFIED SNOMED Code(s): 15164741 (6) GERD (gastroesophageal reflux disease) Current Visit: Yes Status: Acute Code(s): K21.9 - GASTRO-ESOPHAGEAL REFLUX DISEASE WITHOUT ESOPHAGITIS SNOMED Code(s): 657659852 Plan: 1. Continue symptomatic and supportive care 2. Daily CBC, BMP 3. Replace potassium per protocol 4. Clear liquid diet, n.p.o. after midnight 4. Hold aspirin and Plavix 5. Avoid NSAIDs 6. Continue Protonix 40 mg daily 7. Patient is status post upper endoscopy, colonoscopy scheduled for tomorrow 8. Please obtain consent from legal guardian Thank you for this consultation, we will continue to follow. Dr. Nisa Rainey I agree with the dictator's note, documented as a scribe by Bernadette Rod.
[2023-06-29] MEDS: POTASSIUM CHLORIDE ER 20 MEQ TAB.ER PO SCH (15:35)
--- NOTE | 2023-06-29 15:58 | P.PN ---
Progress Note - Text Progress Note Date: 06/29/23 Chief Complaint: Maroon stools This is a pleasant 82-year-old patient, follows with visiting physician Dr. Morelos. Chronic stable medical conditions include CHF, dementia, GERD, hypertension, hyperlipidemia, cognitive impairment, anxiety depression. Patient is not the best of historians Patient came in because he was vomited. And some blood clots came up. He also had bowel movement that was maroon in color. Patient does complain of some epigastric discomfort. Patient was here in May of this year with non-STEMI. Was not felt to be a candidate for invasive procedure was medically managed. Patient was on aspirin Plavix. Does feel a bit tired. A bit dizzy. June 27: Patient had some brown stool when he came to the floor last night. N.p.o. today. Pending endoscopy. Tired. Slight abdominal discomfort. June 28: Underwent EGD yesterday: Unremarkable. Patient being prepared for colonoscopy tomorrow. No abdominal pain. Active Medications Acetaminophen (Acetaminophen Tab 325 Mg Tab) 650 mg PO BID@ REPLACED BY [facility] Last Admin: 06/29/23 09:17 Dose: 650 mg Albuterol Sulfate (Albuterol Nebulized 2.5 Mg/3 Ml) 2.5 mg INHALATION RT-Q4H PRN PRN Reason: Shortness Of Breath Or Wheezing Atorvastatin Calcium (Atorvastatin 80 Mg Tab) 80 mg PO HS@1999 REPLACED BY [facility] Last Admin: 06/28/23 20:12 Dose: 80 mg Bupropion HCl (Bupropion 100 Mg Tab) 100 mg PO DAILY@08 REPLACED BY [facility] Last Admin: 06/29/23 09:17 Dose: 100 mg Divalproex Sodium (Divalproex 250 Mg Tablet.) 250 mg PO DAILY@1400 REPLACED BY [facility] Last Admin: 06/29/23 14:25 Dose: 250 mg Donepezil HCl (Donepezil 10 Mg Tab) 10 mg PO HS@1999 REPLACED BY [facility] Last Admin: 06/28/23 20:12 Dose: 10 mg Lactic Acid (Ammonium Lactate 12% Cream 140 Gm Tube) 1 applic TOPICAL BID@ REPLACED BY [facility]; Protocol Last Admin: 06/29/23 09:17 Dose: 1 applic Levothyroxine Sodium (Levothyroxine 25 Mcg Tab) 25 mcg PO DAILY@799 REPLACED BY [facility] Last Admin: 06/29/23 09:17 Dose: 25 mcg Miscellaneous Information (Potassium Replacement Protocol 1 Each Misc) 1 each MISCELLANE DAILY PRN; Protocol PRN Reason: Per Protocol Pantoprazole Sodium (Pantoprazole 40 Mg/10 Ml Vial) 40 mg IVP BID [facility] Last Admin: 06/29/23 09:18 Dose: 40 mg Potassium Chloride (Potassium Chloride Er 20 Meq Tab.Er) 20 meq PO Q1HR DAV; Pr otocol Stop: 06/29/23 18:01 Last Admin: 06/29/23 15:35 Dose: 20 meq Social history: Lives at a correction. Denies smoking. States takes 4-5 drinks a week. Physical examination: VITAL SIGNS: 98.1, 66, 19, 1 one 8 x 72, 98% room air GENERAL: Resting in bed, comfortable EYES: Pupils equal. Conjunctiva sean l. HEENT: External appearance of nose and ears normal, oral cavity grossly normal. NECK: JVD not raised; masses not palpable. HEART: First and second heart sounds are normal; no edema. LUNGS: Respiratory rate normal; clear to auscultation. ABDOMEN: Soft, nontender, liver spleen not palpable, no masses palpable. PSYCH: Able to answer simple questions but forgetful l. MUSCULOSKELETAL:No Clubbing/cyanosis;muscles-grossly intact. OA INVESTIGATIONS, reviewed in the clinical context: June 28: White count 13.2 hemoglobin 10.1 platelets 435 potassium 3 creatinine 1.7 June 27: White count 16.3 hemoglobin 11.5 platelets 46 potassium 3.4 creatinine 1.81 June 26: White count 27.1 hemoglobin 13.1 platelets 523 potassium 3.5 BUN 48 creatinine 1.93 troponin I 0.048 EKG tracing personally reviewed by me-right bundle astrid block. Sinus rhythm. ST/T wave changes Previous labs: BUN 50 creatinine 2.24 on June 23, 2023 Assessment plan: -Acute GI bleeding the patient was recently been on aspirin and Plavix. Also had maroon stool.: Slow to respond Aspirin Plavix-held. IV PPI. Dr. Nisa Rainey from GI following EGD [June 27]: Unremarkable Being prepared for colonoscopy for tomorrow -Acute GI blood loss anemia Follow H&H -CAD with recent non-ST elevation [place], last month Hold aspirin and Plavix for now Telemetry -Acute GI bleed blood loss anemia Follow H&H -Chronic congestive heart failure from CAD. Diastolic dysfunction EF 50%: Stable -Depression and anxiety Wellbutrin 100 mg a day -Chronic kidney disease stage III likely nephrosclerosis -Hypothyroid Levothyroxine 25 mcg a day -Severe cognitive impairment from late onset Alzheimer's dementia -GERD PPI -Essential hypertension Toprol-XL Now being prepared for colonoscopy for tomorrow. Discussed. Past Medical History Past Medical History: Heart Failure, CVA/TIA, Dementia, GERD/Reflux, Hyperlipidemia, Hypertension, Memory Impairment, Pneumonia Additional Past Medical History / Comment(s): . History of Any Multi-Drug Resistant Organisms: None Reported Past Surgical History: No Surgical Hx Reported Past Psychological History: Anxiety, Depression Smoking Status: Never smoker Past Alcohol Use History: None Reported Past Drug Use History: None Reported
[2023-06-29] MEDS ORDERED: SODIUM FERRIC GLUCONAT-SUCROSE 125 MG in SODIUM CHLORIDE 0.9% 100 ML IVPB SCH (16:15)
[2023-06-29] MEDS: SODIUM FERRIC GLUCONAT-SUCROSE 125 MG in SODIUM CHLORIDE 0.9% 100 ML IVPB SCH (17:18)
[2023-06-30 03:45] LABS: Anisocytosis Slight; HCT 33.6 % (39.0-53.0); HGB 10.5 gm/dL (13.0-17.5); Hypochromasia Slight; MCHC 31.3 g/dL (31.0-37.0); MCV 89.5 fL (80.0-100.0); Mean Platelet Volume 7.8; Platelet Count 414 k/uL (150-450); RBC 3.76 m/uL (4.30-5.90); RDW 16.8 % (11.5-15.5); WBC 13.4 k/uL (3.8-10.6)
[2023-06-30 04:24] LABS: African American GFR (CKD) 51 (>60 ml/min/1.73 sqM); Anion Gap 6 mmol/L; Blood Urea Nitrogen 30 mg/dL (9-20); Calcium 7.7 mg/dL (8.4-10.2); Carbon Dioxide 30 mmol/L (22-30); Chloride 100 mmol/L (98-107); Glucose 92 mg/dL (74-99); Non-African American GFR(CKD) 44 (>60 ml/min/1.73 sqM); Potassium 2.9 mmol/L (3.5-5.1); Sodium 136 mmol/L (137-145)
[2023-06-30] MEDS: POTASSIUM CHLORIDE 10 MEQ in WATER FOR INJECTION 1 100ML.BAG IVPB SCH (08:44)
--- NOTE | 2023-06-30 11:08 | P.PN ---
Subjective Progress Note Date: 06/30/23 Principal diagnosis: Anemia, melena This is a pleasant 82-year-old male who is a poor historian and most of the HPI is obtained through the chart. Patient apparently lives at residential living and was brought in for nausea and vomiting. Reportedly patient had vomited up some blood clots and had noticed maroon-colored stools as well. Patient states he vomited about 10 times yesterday he did not notice any blood in his emesis. He is unsure if he has had any blood in his bowel movements. He denies any abdominal pain, nausea or vomiting. He is on aspirin and Plavix which was taken yesterday morning but denies any anticoagulation. He is unsure of any regular NSAID use. States that he has had multiple colonoscopies in the past he is unsure when his last and denies any known upper endoscopy. Past medical history includes congestive heart failure, dementia, GERD, hypertension, hyperlipidemia cognitive impairment anxiety and depression. Patient does have a legal guardian. Patient came in with a hemoglobin of 13.1 at that time he was also noted to have leukocytosis with a WBC of 27. He has had a 2 g drop in his hemoglobin. Today's labs WBC 16.3 hemoglobin 11.5 hematocrit 36 platelet count 486,000 sodium 137 potassium 3.4 BUN 48 creatinine 1.8. He has been afebrile. He denies any nausea or vomiting currently. He has been NPO. Nursing reports he had a maroon-colored stool last night when he came up from the emergency department. None since that time. He has continued to deny any abdominal pain. 06/29/2023 Patient seen and examined today as a follow-up. He denies any abdominal pain, nausea or vomiting. Hemoglobin is stable at 10.1, WBC 13.2, sodium 139 potassium 3.0 BUN 36 creatinine 1.7. No reported maroon stool this morning. 06/30/2023 Patient was seen and examined today as a follow-up. He denies any abdominal pain nausea or vomiting. He was refusing to drink any more of the prep yesterday so he is not ready for his scheduled colonoscopy today. Nursing states that it was reported that he had dark stool but no blood or maroon-c olored. Hemoglobin is stable at 10.5. Objective - Vital Signs Vital signs: Vital Signs Temp 98.4 F 06/30/23 08:07 Pulse 73 06/30/23 08:07 Resp 17 06/30/23 08:07 BP 129/84 06/30/23 08:07 Pulse Ox 94 L 06/30/23 08:07 FiO2 Intake & Output 06/29/23 06/30/23 06/30/23 18:59 06:59 18:59 Output Total 700 900 Balance -700 -900 Output: Urine 700 900 Other: Voiding Method Indwelling Catheter Indwelling Catheter Indwelling Catheter # Bowel Movements 2 1 - Exam General appearance: The patient is alert, oriented, appears in no acute dist ress. HET: Head is normocephalic and atraumatic. Conjunctiva pink. Sclera anicteric. Neck: Supple without lymphadenopathy. Abdomen: Soft, nontender, nondistended with bowel sounds. No guarding or rigidity. Extremities: Normal skin color and turgor. No pedal edema Skin: No rashes, no jaundice Neurological: No focal deficits. Alert and oriented. - Labs CBC & Chem 7: 06/30/23 03:03 06/30/23 03:03 Labs: Abnormal Lab Results - Last 24 Hours (Table) 06/29/23 06/29/23 06/30/23 Range/Units 06:49 06:49 03:03 WBC 13.28 H 13.4 H (4.50-10.00) X 10*3/uL RBC 3.70 L 3.76 L (4.40-5.60) X 10*6/uL Hgb 10.1 L 10.5 L (13.0-17.0) g/dL Hct 33.3 L 33.6 L (39.6-50.0) % MCHC 30.3 L (32.0-37.0) g/dL RDW 17.7 H 16.8 H (11.5-14.5) % Sodium (137-145) mmol/L Potassium 3.0 L (3.5-5.5) mmol/L Anion Gap 12.60 H (4.00-12.00) mmol/L BUN 36.1 H (9.0-27.0) mg/dL Creatinine 1.7 H (0.6-1.5) mg/dL Est GFR (CKD-EPI) 40 L (>=60) BUN/Creatinine Ratio 21.24 H (12.00-20.00) Ratio Calcium 8.3 L (8.7-10.3) mg/dL 06/30/23 Range/Units 03:03 WBC (4.50-10.00) X 10*3/uL RBC (4.40-5.60) X 10*6/uL Hgb (13.0-17.0) g/dL Hct (39.6-50.0) % MCHC (32.0-37.0) g/dL RDW (11.5-14.5) % Sodium 136 L (137-145) mmol/L Potassium 2.9 L (3.5-5.5) mmol/L Anion Gap (4.00-12.00) mmol/L BUN 30 H (9.0-27.0) mg/dL Creatinine 1.49 H (0.6-1.5) mg/dL Est GFR (CKD-EPI) (>=60) BUN/Creatinine Ratio (12.00-20.00) Ratio Calcium 7.7 L (8.7-10.3) mg/dL Assessment and Plan (1) GI bleed Narrative/Plan: 82-year-old male brought in for multiple episodes of emesis with noted blood clots and maroon-colored stools. No previous history of known GI bleed. 6 patient came in with a normal hemoglobin of 13 with a 2 g drop. Had repeated maroon-colored stool throughout the night. Unclear etiology of GI bleed however does appear to be likely upper GI bleed. Recommend proceeding with upper endoscopy to evaluate for possible upper GI blood source. Avoid NSAIDs, hold aspirin and Plavix. Patient underwent upper endoscopy with findings of small hiatal hernia, a 5 mm duodenal polyp with no evidence of active upper GI bleed. Recommendation to proceed with colonoscopy. This was discussed with patient who is agreeable. Current Visit: Yes Status: Acute Code(s): K92.2 - GASTROINTESTINAL HEMORRHAGE, UNSPECIFIED SNOMED Code(s): 96857049 (2) Vomiting Narrative/Plan: Resolved Current Visit: No Status: Acute Code(s): R11.10 - VOMITING, UNSPECIFIED SNOMED Code(s): 675902078 (3) Coronary artery disease Current Visit: Yes Status: Acute Code(s): I25.10 - ATHSCL HEART DISEASE OF [place] CORONARY ARTERY W/O ANG PCTRS SNOMED Code(s): 88352415 (4) Dementia Current Visit: Yes Status: Acute Code(s): F03.90 - UNSP DEMENTIA, UNSP SEVERITY, WITHOUT BEH/PSYCH/MOOD/ANX SNOMED Code(s): 65823249 (5) COPD (chronic obstructive pulmonary disease) Current Visit: Yes Status: Acute Code(s): J44.9 - CHRONIC OBSTRUCTIVE PULMONARY DISEASE, UNSPECIFIED SNOMED Code(s): 31536819 (6) GERD (gastroesophageal reflux disease) Current Visit: Yes Status: Acute Code(s): K21.9 - GASTRO-ESOPHAGEAL REFLUX DISEASE WITHOUT ESOPHAGITIS SNOMED Code(s): 390509137 Plan: 1. Continue symptomatic and supportive care 2. Daily BMP 3. Replace potassium per protocol 4. Clear liquid diet, n.p.o. after midnight 4. Hold aspirin and Plavix 5. Avoid NSAIDs 6. Continue Protonix 40 mg daily 7. Patient is status post upper endoscopy, colonoscopy rescheduled for tomorrow 8. Please obtain consent from legal guardian Thank you for this consultation, we will continue to follow. Dr. Nisa Rainey I agree with the dictator's note, documented as a scribe by Bernadette Rod.
--- NOTE | 2023-06-30 16:48 | P.PN ---
Progress Note - Text Progress Note Date: 06/30/23 Chief Complaint: Maroon stools This is a pleasant 82-year-old patient, follows with visiting physician Dr. Morelos. Chronic stable medical conditions include CHF, dementia, GERD, hypertension, hyperlipidemia, cognitive impairment, anxiety depression. Patient is not the best of historians Patient came in because he was vomited. And some blood clots came up. He also had bowel movement that was maroon in color. Patient does complain of some epigastric discomfort. Patient was here in May of this year with non-STEMI. Was not felt to be a candidate for invasive procedure was medically managed. Patient was on aspirin Plavix. Does feel a bit tired. A bit dizzy. June 27: Patient had some brown stool when he came to the floor last night. N.p.o. today. Pending endoscopy. Tired. Slight abdominal discomfort. June 28: Underwent EGD yesterday: Unremarkable. Patient being prepared for colonoscopy tomorrow. No abdominal pain. June 29: Patient still getting bowel prep for colonoscopy. Dark stools. No abdominal pain. On a liquid diet. N.p.o. from midnight. Active Medications Acetaminophen (Acetaminophen Tab 325 Mg Tab) 650 mg PO BID@0800,1999 [facility] Last Admin: 06/30/23 10:01 Dose: 650 mg Albuterol Sulfate (Albuterol Nebulized 2.5 Mg/3 Ml) 2.5 mg INHALATION RT-Q4H PRN PRN Reason: Shortness Of Breath Or Wheezing Atorvastatin Calcium (Atorvastatin 80 Mg Tab) 80 mg PO HS@1999 [facility] Last Admin: 06/29/23 20:19 Dose: 80 mg Bupropion HCl (Bupropion 100 Mg Tab) 100 mg PO DAILY@0800 [facility] Last Admin: 06/30/23 10:02 Dose: 100 mg Divalproex Sodium (Divalproex 250 Mg Tablet.) 250 mg PO DAILY@1400 [facility] Last Admin: 06/30/23 14:27 Dose: 250 mg Donepezil HCl (Donepezil 10 Mg Tab) 10 mg PO HS@1999 [facility] Last Admin: 06/29/23 20:19 Dose: 10 mg Ferric Sodium Gluconate 125 mg (/ Sodium Chloride) 110 mls @ 100 mls/hr IVPB DAILY [facility] Last Admin: 06/30/23 10:02 Dose: 100 mls/hr Lactic Acid (Ammonium Lactate 12% Cream 140 Gm Tube) 1 applic TOPICAL BID@0800,1999 [facility]; Protocol Last Admin: 06/30/23 14:27 Dose: 1 applic Levothyroxine Sodium (Levothyroxine 25 Mcg Tab) 25 mcg PO DAILY@0800 [facility] Last Admin: 06/30/23 10:01 Dose: 25 mcg Miscellaneous Information (Potassium Replacement Protocol 1 Each Misc) 1 each MISCELLANE DAILY PRN; Protocol PRN Reason: Per Protocol Pantoprazole Sodium (Pantoprazole 40 Mg/10 Ml Vial) 40 mg IVP BID [facility] Last Admin: 06/30/23 10:02 Dose: 40 mg Potassium Chloride (Potassium Chloride Er 20 Meq Tab.Er) 20 meq PO Q1HR [facility]; Protocol Stop: 06/30/23 18:01 Social history: Lives at a alf. Denies smoking. States takes 4-5 drinks a week. Physical examination: VITAL SIGNS: 98.8, 65, 15, 04/22/1983, 94% room air GENERAL: Resting in bed, comfortable EYES: Pupils equal. Conjunctiva sean l. HEENT: External appearance of nose and ears normal, oral cavity grossly normal. NECK: JVD not raised; masses not palpable. HEART: First and second heart sounds are normal; no edema. LUNGS: Respiratory rate normal; clear to auscultation. ABDOMEN: Soft, nontender, liver spleen not palpable, no masses palpable. PSYCH: Able to answer simple questions but forgetful l. MUSCULOSKELETAL:No Clubbing/cyanosis;muscles-grossly intact. OA INVESTIGATIONS, reviewed in the clinical context: June 29: White count 13.4 hemoglobin 10.5 potassium 2.9 June 28: White count 13.2 hemoglobin 10.1 platelets 435 potassium 3 creatinine 1.7 June 27: White count 16.3 hemoglobin 11.5 platelets 46 potassium 3.4 creatinine 1.81 June 26: White count 27.1 hemoglobin 13.1 platelets 523 potassium 3.5 BUN 48 creatinine 1.93 troponin I 0.048 EKG tracing personally reviewed by me-right bundle astrid block. Sinus rhythm. ST/T wave changes Previous labs: BUN 50 creatinine 2.24 on June 23, 2023 Assessment plan: -Acute GI bleeding the patient was recently been on aspirin and Plavix. Also had maroon stool.: Slow to respond Aspirin Plavix-held. IV PPI. Dr. Nisa Rainey from GI following EGD [June 27]: Unremarkable Being prepared for colonoscopy for tomorrow -Acute GI blood loss anemia Follow H&H -CAD with recent non-ST elevation [place], last month Hold aspirin and Plavix for now Telemetry -Acute GI bleed blood loss anemia Follow H&H -Chronic congestive heart failure from CAD. Diastolic dysfunction EF 50%: Stable -Depression and anxiety Wellbutrin 100 mg a day -Hypokalemia, replace -Chronic kidney disease stage III likely nephrosclerosis -Hypothyroid Levothyroxine 25 mcg a day -Severe cognitive impairment from late onset Alzheimer's dementia -GERD PPI -Essential hypertension Toprol-XL Getting prepared for colonoscopy for tomorrow. Clear liquids, n.p.o. after midnight Past Medical History Past Medical History: Heart Failure, CVA/TIA, Dementia, GERD/Reflux, Hyperlipidemia, Hypertension, Memory Impairment, Pneumonia Additional Past Medical History / Comment(s): . History of Any Multi-Drug Resistant Organisms: None Reported Past Surgical History: No Surgical Hx Reported Past Psychological History: Anxiety, Depression Smoking Status: Never smoker Past Alcohol Use History: None Reported Past Drug Use History: None Reported
[2023-06-30] MEDS: POTASSIUM CHLORIDE ER 20 MEQ TAB.ER PO SCH (17:03)
[2023-06-30] MEDS: POTASSIUM CHLORIDE ER 20 MEQ TAB.ER PO ONE (18:49)
--- NOTE | 2023-06-30 21:53 | XR ---
EXAMINATION: XR chest 1V portable DATE AND TIME: 06/30/2023 9:47 PM CLINICAL INDICATION: PHH; crackles in lungs and low O2 TECHNIQUE: Departmental protocol COMPARISON: 06/14/2023 FINDINGS: The lungs are clear. The pleural spaces are negative. The cardiac silhouette is not enlarged. Prominent tortuosity of the thoracic aorta is redemonstrated. The skeletal structures and soft tissues are negative for acute findings. IMPRESSION: No acute radiographic process.
[2023-06-30] MEDS: FUROSEMIDE 10 MG/ML 4 ML VIAL IV ONE (23:03)
[2023-07-01 03:10] LABS: Anisocytosis Slight; Basophils # (A) 0.1 k/uL (0-0.2); Basophils % (A) 0 %; Eosinophils # (A) 0.2 k/uL (0-0.7); Eosinophils % (A) 1 %; HCT 38.1 % (39.0-53.0); HGB 11.7 gm/dL (13.0-17.5); Hypochromasia Moderate; Lymphocytes # (A) 1.2 k/uL (1.0-4.8); Lymphocytes % (A) 5 %; MCH 28.2 pg (25.0-35.0); MCHC 30.7 g/dL (31.0-37.0); Mean Platelet Volume 8.2; Monocytes # (A) 2.9 k/uL (0-1.0); Monocytes % (A) 11 %; Neutrophils % (A) 82 %; Platelet Count 446 k/uL (150-450); RBC 4.14 m/uL (4.30-5.90); WBC 25.7 k/uL (3.8-10.6)
[2023-07-01 03:30] LABS: African American GFR (CKD) 59 (>60 ml/min/1.73 sqM); Anion Gap 7 mmol/L; Blood Urea Nitrogen 22 mg/dL (9-20); Calcium 8.2 mg/dL (8.4-10.2); Carbon Dioxide 27 mmol/L (22-30); Chloride 105 mmol/L (98-107); Glucose 96 mg/dL (74-99); Non-African American GFR(CKD) 51 (>60 ml/min/1.73 sqM); Potassium 3.6 mmol/L (3.5-5.1); Sodium 139 mmol/L (137-145)
[2023-07-01 06:41] LABS: Anisocytosis Slight; Basophils # (A) 0.1 k/uL (0-0.2); Basophils % (A) 0 %; Eosinophils # (A) 0.1 k/uL (0-0.7); Eosinophils % (A) 0 %; HCT 33.2 % (39.0-53.0); HGB 10.7 gm/dL (13.0-17.5); Hypochromasia Moderate; Lymphocytes # (A) 1.5 k/uL (1.0-4.8); Lymphocytes % (A) 6 %; MCH 29.4 pg (25.0-35.0); MCHC 32.1 g/dL (31.0-37.0); MCV 91.5 fL (80.0-100.0); Monocytes # (A) 1.7 k/uL (0-1.0); Monocytes % (A) 7 %; Neutrophils # (A) 22.4 k/uL (1.3-7.7); Neutrophils % (A) 86 %; Platelet Count 393 k/uL (150-450); RBC 3.63 m/uL (4.30-5.90); RDW 17.1 % (11.5-15.5); WBC 26.1 k/uL (3.8-10.6)
--- NOTE | 2023-07-01 07:57 | P.PN ---
Subjective Progress Note Date: 07/01/23 Principal diagnosis: Anemia, melena This is a pleasant 82-year-old male who is a poor historian and most of the HPI is obtained through the chart. Patient apparently lives at residential living and was brought in for nausea and vomiting. Reportedly patient had vomited up some blood clots and had noticed maroon-colored stools as well. Patient states he vomited about 10 times yesterday he did not notice any blood in his emesis. He is unsure if he has had any blood in his bowel movements. He denies any abdominal pain, nausea or vomiting. He is on aspirin and Plavix which was taken yesterday morning but denies any anticoagulation. He is unsure of any regular NSAID use. States that he has had multiple colonoscopies in the past he is unsure when his last and denies any known upper endoscopy. Past medical history includes congestive heart failure, dementia, GERD, hypertension, hyperlipidemia cognitive impairment anxiety and depression. Patient does have a legal guardian. Patient came in with a hemoglobin of 13.1 at that time he was also noted to have leukocytosis with a WBC of 27. He has had a 2 g drop in his hemoglobin. Today's labs WBC 16.3 hemoglobin 11.5 hematocrit 36 platelet count 486,000 sodium 137 potassium 3.4 BUN 48 creatinine 1.8. He has been afebrile. He denies any nausea or vomiting currently. He has been NPO. Nursing reports he had a maroon-colored stool last night when he came up from the emergency department. None since that time. He has continued to deny any abdominal pain. 06/29/2023 Patient seen and examined today as a follow-up. He denies any abdominal pain, nausea or vomiting. Hemoglobin is stable at 10.1, WBC 13.2, sodium 139 potassium 3.0 BUN 36 creatinine 1.7. No reported maroon stool this morning. 06/30/2023 Patient was seen and examined today as a follow-up. He denies any abdominal pain nausea or vomiting. He was refusing to drink any more of the prep yesterday so he is not ready for his scheduled colonoscopy today. Nursing states that it was reported that he had dark stool but no blood or maroon-c olored. Hemoglobin is stable at 10.5. 07/01/2023 Patient is seen and examined today as a follow-up. Yesterday he refused to drink his bowel prep. Nursing reports he is still having soft stools that are dark. He denies any abdominal pain, nausea or vomiting. WBC 25.7 hemoglobin 11.7 platelet count 446,000 sodium 139 potassium 3.6 BUN 22 creatinine 1.3 Objective - Vital Signs Vital signs: Vital Signs Temp 98.8 F 07/01/23 02:00 Pulse 100 07/01/23 02:00 Resp 16 07/01/23 02:00 BP 137/86 07/01/23 02:00 Pulse Ox 98 07/01/23 02:00 FiO2 Intake & Output 06/30/23 06/30/23 07/01/23 06:59 18:59 06:59 Output Total 900 800 600 Balance -900 -800 -600 Output: Urine 900 800 600 Other: Voiding Method Indwelling Catheter Indwelling Catheter Indwelling Catheter # Bowel Movements 2 1 - Exam General appearance: The patient is alert, oriented, appears in no acute distress. HET: Head is normocephalic and atraumatic. Conjunctiva pink. Sclera anicteric. Neck: Supple without lymphadenopathy. Abdomen: Soft, nontender, nondistended with bowel sounds. No guarding or rigidity. Extremities: Normal skin color and turgor. No pedal edema Skin: No rashes, no jaundice Neurological: No focal deficits. Alert and oriented. - Labs CBC & Chem 7: 07/01/23 06:05 07/01/23 02:39 Labs: Abnormal Lab Results - Last 24 Hours (Table) 06/30/23 07/01/23 07/01/23 Range/Units 15:42 02:39 02:44 WBC 25.7 H (3.8-10.6) k/uL RBC 4.14 L (4.30-5.90) m/uL Hgb 11.7 L (13.0-17.5) gm/dL Hct 38.1 L (39.0-53.0) % MCHC 30.7 L (31.0-37.0) g/dL RDW 17.0 H (11.5-15.5) % Neutrophils # 21.0 H (1.3-7.7) k/uL Monocytes # 2.9 H (0-1.0) k/uL Potassium 3.1 L (3.5-5.1) mmol/L BUN 22 H (9-20) mg/dL Creatinine 1.32 H (0.66-1.25) mg/dL Calcium 8.2 L (8.4-10.2) mg/dL Assessment and Plan (1) GI bleed Narrative/Plan: 82-year-old male brought in for multiple episodes of emesis with noted blood clots and maroon-colored stools. No previous history of known GI bleed. 6 patient came in with a normal hemoglobin of 13 with a 2 g drop. Had repeated maroon-colored stool throughout the night. Unclear etiology of GI bleed however does appear to be likely upper GI bleed. Recommend proceeding with upper endoscopy to evaluate for possible upper GI blood source. Avoid NSAIDs, hold aspirin and Plavix. Patient underwent upper endoscopy with findings of small hiatal hernia, a 5 mm duodenal polyp with no evidence of active upper GI bleed. Recommendation to proceed with colonoscopy, patient was prepped for 2 days and still would not complete his prep. Will cancel colonoscopy. Current Visit: Yes Status: Acute Code(s): K92.2 - GASTROINTESTINAL HEMORRHAGE, UNSPECIFIED SNOMED Code(s): 87003816 (2) Vomiting Narrative/Plan: Resolved Current Visit: No Status: Acute Code(s): R11.10 - VOMITING, UNSPECIFIED SNOMED Code(s): 655306209 (3) Coronary artery disease Current Visit: Yes Status: Acute Code(s): I25.10 - ATHSCL HEART DISEASE OF [place] CORONARY ARTERY W/O ANG PCTRS SNOMED Code(s): 20804305 (4) Dementia Current Visit: Yes Status: Acute Code(s): F03.90 - UNSP DEMENTIA, UNSP SEVERITY, WITHOUT BEH/PSYCH/MOOD/ANX SNOMED Code(s): 74820328 (5) COPD (chronic obstructive pulmonary disease) Current Visit: Yes Status: Acute Code(s): J44.9 - CHRONIC OBSTRUCTIVE PULMONARY DISEASE, UNSPECIFIED SNOMED Code(s): 21336820 (6) GERD (gastroesophageal reflux disease) Current Visit: Yes Status: Acute Code(s): K21.9 - GASTRO-ESOPHAGEAL REFLUX DISEASE WITHOUT ESOPHAGITIS SNOMED Code(s): 466024606 Plan: 1. Continue symptomatic and supportive care 2. May resume aspirin and Plavix 3. May have regular diet 4. Patient is status post upper endoscopy, colonoscopy recommended to patient. Attempted bowel prep for 2 days and patient continues to refuse. Colonoscopy canceled. Can consider possible outpatient colonoscopy if patient willing to. Thank you for this consultation, we will sign off at this time. Dr. Nisa Rainey I agree with the dictator's note, documented as a scribe by Bernadette Rod.
--- NOTE | 2023-07-01 15:32 | P.PN ---
Progress Note - Text Progress Note Date: 07/01/23 Chief Complaint: Maroon stools This is a pleasant 82-year-old patient, follows with visiting physician Dr. Morelos. Chronic stable medical conditions include CHF, dementia, GERD, hypertension, hyperlipidemia, cognitive impairment, anxiety depression. Patient is not the best of historians Patient came in because he was vomited. And some blood clots came up. He also had bowel movement that was maroon in color. Patient does complain of some epigastric discomfort. Patient was here in May of this year with non-STEMI. Was not felt to be a candidate for invasive procedure was medically managed. Patient was on aspirin Plavix. Does feel a bit tired. A bit dizzy. June 27: Patient had some brown stool when he came to the floor last night. N.p.o. today. Pending endoscopy. Tired. Slight abdominal discomfort. June 28: Underwent EGD yesterday: Unremarkable. Patient being prepared for colonoscopy tomorrow. No abdominal pain. June 29: Patient still getting bowel prep for colonoscopy. Dark stools. No abdominal pain. On a liquid diet. N.p.o. from midnight. June 30: Patient again refused colonoscopy. GI communicated to me. I spoke to financial legal assistant public guardian came Tuesday. Explained that. At this point we will continue with conservative measurement. Patient did have a maroon stool last night. Diet has been as passports GI because the same. Patient remains off any anticoagulants/blood thinners. Follow H&H. Active Medications Acetaminophen (Acetaminophen Tab 325 Mg Tab) 650 mg PO BID@08,1999 [facility] Last Admin: 07/01/23 09:02 Dose: 650 mg Albuterol Sulfate (Albuterol Nebulized 2.5 Mg/3 Ml) 2.5 mg INHALATION RT-Q4H PRN PRN Reason: Shortness Of Breath Or Wheezing Atorvastatin Calcium (Atorvastatin 80 Mg Tab) 80 mg PO HS@1999 [facility] Last Admin: 06/30/23 20:47 Dose: 80 mg Bupropion HCl (Bupropion 100 Mg Tab) 100 mg PO DAILY@0800 [facility] Last Admin: 07/01/23 09:02 Dose: 100 mg Divalproex Sodium (Divalproex 250 Mg Tablet.) 250 mg PO DAILY@1400 [facility] Last Admin: 07/01/23 13:43 Dose: 250 mg Donepezil HCl (Donepezil 10 Mg Tab) 10 mg PO HS@1999 [facility] Last Admin: 06/30/23 20:47 Dose: 10 mg Ferric Sodium Gluconate 125 mg (/ Sodium Chloride) 110 mls @ 100 mls/hr IVPB DAILY [facility] Last Admin: 07/01/23 09:12 Dose: 100 mls/hr Lactic Acid (Ammonium Lactate 12% Cream 140 Gm Tube) 1 applic TOPICAL BID@799,1999 [facility]; Protocol Last Admin: 07/01/23 09:03 Dose: 1 applic Levothyroxine Sodium (Levothyroxine 25 Mcg Tab) 25 mcg PO DAILY@0800 [facility] Last Admin: 07/01/23 09:02 Dose: 25 mcg Miscellaneous Information (Potassium Replacement Protocol 1 Each Misc) 1 each MISCELLANE DAILY PRN; Protocol PRN Reason: Per Protocol Pantoprazole Sodium (Pantoprazole 40 Mg/10 Ml Vial) 40 mg IVP BID [facility] Last Admin: 07/01/23 09:03 Dose: 40 mg Social history: Lives at a snf. Denies smoking. States takes 4-5 drinks a week. Physical examination: VITAL SIGNS: 97.7, 79, 18, 130 x 71, 93% room air GENERAL: Resting in bed, comfortable EYES: Pupils equal. Conjunctiva sean l. HEENT: External appearance of nose and ears normal, oral cavity grossly normal. NECK: JVD not raised; masses not palpable. HEART: First and second heart sounds are normal; no edema. LUNGS: Respiratory rate normal; clear to auscultation. ABDOMEN: Soft, nontender, liver spleen not palpable, no masses palpable. PSYCH: Able to answer simple questions but forgetful l. MUSCULOSKELETAL:No Clubbing/cyanosis;muscles-grossly intact. OA INVESTIGATIONS, reviewed in the clinical context: June 30: Hemoglobin 10.7 June 26: White count 27.1 hemoglobin 13.1 platelets 523 potassium 3.5 BUN 48 creatinine 1.93 troponin I 0.048 EKG tracing personally reviewed by me-right bundle astrid block. Sinus rhythm. ST/T wave changes Previous labs: BUN 50 creatinine 2.24 on June 23, 2023 Assessment plan: -Acute GI bleeding the patient was recently been on aspirin and Plavix. Also had maroon stool.: Slow to respond Aspirin Plavix-held. IV PPI. Dr. Nisa Rainey from GI following EGD [June 27]: Unremarkable e does refuse colonoscopy at least twice. Patient legal guardian office came Tuesday discussed with informed. -Acute GI blood loss anemia Follow H&H -CAD with recent non-ST elevation [place], last month Hold aspirin and Plavix for now Telemetry -Acute GI bleed blood loss anemia Follow H&H -Chronic congestive heart failure from CAD. Diastolic dysfunction EF 50%: Stabl e -Depression and anxiety Wellbutrin 100 mg a day -Hypokalemia, replace -Chronic kidney disease stage III likely nephrosclerosis -Hypothyroid Levothyroxine 25 mcg a day -Severe cognitive impairment from late onset Alzheimer's dementia -GERD PPI -Essential hypertension Toprol-XL Patient has refused colonoscopy at least on 2 occasions. Diet has been advanced. Follow H&H. Past Medical History Past Medical History: Heart Failure, CVA/TIA, Dementia, GERD/Reflux, Hyperlipidemia, Hypertension, Memory Impairment, Pneumonia Additional Past Medical History / Comment(s): . History of Any Multi-Drug Resistant Organisms: None Reported Past Surgical History: No Surgical Hx Reported Past Psychological History: Anxiety, Depression Smoking Status: Never smoker Past Alcohol Use History: None Reported Past Drug Use History: None Reported
[2023-07-01] MEDS: PANTOPRAZOLE 40 MG TABLET PO SCH (17:25)
[2023-07-01] MEDS: POTASSIUM CHLORIDE ER 20 MEQ TAB.ER PO SCH (20:46)
[2023-07-02 09:05] LABS: Anisocytosis Slight; Basophils % (A) 0 %; Eosinophils # (A) 0.3 k/uL (0-0.7); Eosinophils % (A) 3 %; HCT 30.2 % (39.0-53.0); HGB 9.7 gm/dL (13.0-17.5); Hypochromasia Moderate; Lymphocytes % (A) 15 %; MCH 29.4 pg (25.0-35.0); MCHC 32.3 g/dL (31.0-37.0); MCV 91.1 fL (80.0-100.0); Mean Platelet Volume 8.2; Monocytes % (A) 7 %; Neutrophils # (A) 9.7 k/uL (1.3-7.7); Neutrophils % (A) 72 %; Platelet Count 348 k/uL (150-450); RBC 3.31 m/uL (4.30-5.90); RDW 17.7 % (11.5-15.5); WBC 13.4 k/uL (3.8-10.6)
--- NOTE | 2023-07-02 16:09 | P.PN ---
Progress Note - Text Progress Note Date: 07/02/23 Chief Complaint: Maroon stools This is a pleasant 82-year-old patient, follows with visiting physician Dr. Morelos. Chronic stable medical conditions include CHF, dementia, GERD, hypertension, hyperlipidemia, cognitive impairment, anxiety depression. Patient is not the best of historians Patient came in because he was vomited. And some blood clots came up. He also had bowel movement that was maroon in color. Patient does complain of some epigastric discomfort. Patient was here in May of this year with non-STEMI. Was not felt to be a candidate for invasive procedure was medically managed. Patient was on aspirin Plavix. Does feel a bit tired. A bit dizzy. June 27: Patient had some brown stool when he came to the floor last night. N.p.o. today. Pending endoscopy. Tired. Slight abdominal discomfort. June 28: Underwent EGD yesterday: Unremarkable. Patient being prepared for colonoscopy tomorrow. No abdominal pain. June 29: Patient still getting bowel prep for colonoscopy. Dark stools. No abdominal pain. On a liquid diet. N.p.o. from midnight. June 30: Patient again refused colonoscopy. GI communicated to me. I spoke to legal clerk public guardian came Tuesday. Explained that. At this point we will continue with conservative measurement. Patient did have a maroon stool last night. Diet has been as passports GI because the same. Patient remains off any anticoagulants/blood thinners. Follow H&H. July 01: Nurse reports was much smaller amount of somewhat loose stool last night. Aspirin will be resumed today. As upper GI is negative. No abdominal pain.. Tolerating diet Active Medications Acetaminophen (Acetaminophen Tab 325 Mg Tab) 650 mg PO BID@799,1999 [facility] Last Admin: 07/02/23 09:07 Dose: 650 mg Albuterol Sulfate (Albuterol Nebulized 2.5 Mg/3 Ml) 2.5 mg INHALATION RT-Q4H PRN PRN Reason: Shortness Of Breath Or Wheezing Atorvastatin Calcium (Atorvastatin 80 Mg Tab) 80 mg PO HS@1999 [facility] Last Admin: 07/01/23 20:12 Dose: 80 mg Bupropion HCl (Bupropion 100 Mg Tab) 100 mg PO DAILY@0800 [facility] Last Admin: 07/02/23 09:07 Dose: 100 mg Divalproex Sodium (Divalproex 250 Mg Tablet.) 250 mg PO DAILY@1400 [facility] Last Admin: 07/02/23 14:45 Dose: 250 mg Donepezil HCl (Donepezil 10 Mg Tab) 10 mg PO HS@1999 [facility] Last Admin: 07/01/23 20:12 Dose: 10 mg Ferric Sodium Gluconate 125 mg (/ Sodium Chloride) 110 mls @ 100 mls/hr IVPB DAILY [facility] Last Admin: 07/02/23 09:08 Dose: 100 mls/hr Lactic Acid (Ammonium Lactate 12% Cream 140 Gm Tube) 1 applic TOPICAL BID@799,1999 [facility]; Protocol Last Admin: 07/02/23 14:46 Dose: 1 applic Levothyroxine Sodium (Levothyroxine 25 Mcg Tab) 25 mcg PO DAILY@0800 [facility] Last Admin: 07/02/23 09:07 Dose: 25 mcg Miscellaneous Information (Potassium Replacement Protocol 1 Each Misc) 1 each MISCELLANE DAILY PRN; Protocol PRN Reason: Per Protocol Non-Formulary Medication (Aspirin Ec) 81 mg PO DAILY@0800 [facility] Pantoprazole Sodium (Pantoprazole 40 Mg Tablet) 40 mg PO AC-BID [facility] Last Admin: 07/02/23 09:08 Dose: 40 mg Social history: Lives at a skilled nursing. Denies smoking. States takes 4-5 drinks a week. Physical examination: VITAL SIGNS: 98.7, 76, 113/66 x 36, 94% room air GENERAL: Resting in bed, comfortable EYES: Pupils equal. Conjunctiva sean l. HEENT: External appearance of nose and ears normal, oral cavity grossly normal. NECK: JVD not raised; masses not palpable. HEART: First and second heart sounds are normal; no edema. LUNGS: Respiratory rate normal; clear to auscultation. ABDOMEN: Soft, nontender, liver spleen not palpable, no masses palpable. PSYCH: Able to answer simple questions but forgetful l. MUSCULOSKELETAL:No Clubbing/cyanosis;muscles-grossly intact. OA INVESTIGATIONS, reviewed in the clinical context: July 01: Hemoglobin 9.7 June 30: Hemoglobin 10.7 June 26: White count 27.1 hemoglobin 13.1 platelets 523 potassium 3.5 BUN 48 creatinine 1.93 troponin I 0.048 EKG tracing personally reviewed by me-right bundle astrid block. Sinus rhythm. ST/T wave changes Previous labs: BUN 50 creatinine 2.24 on June 23, 2023 Assessment plan: -Acute GI bleeding the patient was recently been on aspirin and Plavix. Also had maroon stool.: Slow to respond PPI Dr. Nisa Rainey from GI following EGD [June 27]: Unremarkable e does refuse colonoscopy at least twice. Patient legal guardian office came Tuesday discussed with informed. Resume aspirin. -Acute GI blood loss anemia Follow H&H -CAD with recent non-ST elevation [place], last month Hold aspirin and Plavix for now Telemetry -Acute GI bleed blood loss anemia Follow H&H -Chronic congestive heart failure from CAD. Diastolic dysfunction EF 50%: Stable -Depression and anxiety Wellbutrin 100 mg a day -Hypokalemia, replace -Chronic kidney disease stage III likely nephrosclerosis -Hypothyroid Levothyroxine 25 mcg a day -Severe cognitive impairment from late onset Alzheimer's dementia -GERD PPI -Essential hypertension Toprol-XL Resume aspirin. As upper EGD was unremarkable. Follow H&H. Past Medical History Past Medical History: Heart Failure, CVA/TIA, Dementia, GERD/Reflux, Hyperlipidemia, Hypertension, Memory Impairment, Pneumonia Additional Past Medical History / Comment(s): . History of Any Multi-Drug Resistant Organisms: None Reported Past Surgical History: No Surgical Hx Reported Past Psychological History: Anxiety, Depression Smoking Status: Never smoker Past Alcohol Use History: None Reported Past Drug Use History: None Reported
[2023-07-02] MEDS: CLOPIDOGREL 75 MG TAB PO SCH (16:57)
[2023-07-02] MEDS: ASPIRIN 81 MG PO SCH (17:10)
--- NOTE | 2023-07-03 13:03 | P.PN ---
Progress Note - Text Progress Note Date: 07/03/23 Chief Complaint: Maroon stools This is a pleasant 82-year-old patient, follows with visiting physician Dr. Morelos. Chronic stable medical conditions include CHF, dementia, GERD, hypertension, hyperlipidemia, cognitive impairment, anxiety depression. Patient is not the best of historians Patient came in because he was vomited. And some blood clots came up. He also had bowel movement that was maroon in color. Patient does complain of some epigastric discomfort. Patient was here in May of this year with non-STEMI. Was not felt to be a candidate for invasive procedure was medically managed. Patient was on aspirin Plavix. Does feel a bit tired. A bit dizzy. June 27: Patient had some brown stool when he came to the floor last night. N.p.o. today. Pending endoscopy. Tired. Slight abdominal discomfort. June 28: Underwent EGD yesterday: Unremarkable. Patient being prepared for colonoscopy tomorrow. No abdominal pain. June 29: Patient still getting bowel prep for colonoscopy. Dark stools. No abdominal pain. On a liquid diet. N.p.o. from midnight. June 30: Patient again refused colonoscopy. GI communicated to me. I spoke to legal entity controller public guardian came Tuesday. Explained that. At this point we will continue with conservative measurement. Patient did have a maroon stool last night. Diet has been as passports GI because the same. Patient remains off any anticoagulants/blood thinners. Follow H&H. July 01: Nurse reports was much smaller amount of somewhat loose stool last night. Aspirin will be resumed today. As upper GI is negative. No abdominal pain.. Tolerating diet July 02: Has had no bowel movement. Tolerating diet. Awaiting improved bowel movements the patient can be discharged. Active Medications Acetaminophen (Acetaminophen Tab 325 Mg Tab) 650 mg PO BID@799,1999 [facility] Last Admin: 07/03/23 07:41 Dose: 650 mg Albuterol Sulfate (Albuterol Nebulized 2.5 Mg/3 Ml) 2.5 mg INHALATION RT-Q4H PRN PRN Reason: Shortness Of Breath Or Wheezing Aspirin (Aspirin 81 Mg) 81 mg PO DAILY@0800 [facility] Last Admin: 07/03/23 07:42 Dose: 81 mg Atorvastatin Calcium (Atorvastatin 80 Mg Tab) 80 mg PO HS@1999 [facility] Last Admin: 07/02/23 19:40 Dose: 80 mg Bupropion HCl (Bupropion 100 Mg Tab) 100 mg PO DAILY@08 [facility] Last Admin: 07/03/23 07:42 Dose: 100 mg Divalproex Sodium (Divalproex 250 Mg Tablet.Dr) 250 mg PO DAILY@1400 [facility] Last Admin: 07/02/23 14:45 Dose: 250 mg Donepezil HCl (Donepezil 10 Mg Tab) 10 mg PO HS@1999 [facility] Last Admin: 07/02/23 19:40 Dose: 10 mg Ferric Sodium Gluconate 125 mg (/ Sodium Chloride) 110 mls @ 100 mls/hr IVPB DAILY [facility] Last Admin: 07/03/23 07:47 Dose: 100 mls/hr Lactic Acid (Ammonium Lactate 12% Cream 140 Gm Tube) 1 applic TOPICAL BID@799,1999 [facility]; Protocol Last Admin: 07/03/23 07:43 Dose: 1 applic Levothyroxine Sodium (Levothyroxine 25 Mcg Tab) 25 mcg PO DAILY@799 [facility] Last Admin: 07/03/23 07:41 Dose: 25 mcg Miscellaneous Information (Potassium Replacement Protocol 1 Each Misc) 1 each MISCELLANE DAILY PRN; Protocol PRN Reason: Per Protocol Pantoprazole Sodium (Pantoprazole 40 Mg Tablet) 40 mg PO AC-BID [facility] Last Admin: 07/03/23 07:41 Dose: 40 mg Social history: Lives at a halfway. Denies smoking. States takes 4-5 drinks a week. Physical examination: VITAL SIGNS: 99.1, 73, 18, 129, 81, and 96% room air GENERAL:, comfortable EYES: Pupils equal. Conjunctiva sean l. HEENT: External appearance of nose and ears normal, oral cavity grossly normal. NECK: JVD not raised; masses not palpable. HEART: First and second heart sounds are normal; no edema. LUNGS: Respiratory rate normal; clear to auscultation. ABDOMEN: Soft, nontender, liver spleen not palpable, no masses palpable. PSYCH: Able to answer simple questions but forgetful l. MUSCULOSKELETAL:No Clubbing/cyanosis;muscles-grossly intact. OA INVESTIGATIONS, reviewed in the clinical context: July 01: Hemoglobin 9.7 June 30: Hemoglobin 10.7 June 26: White count 27.1 hemoglobin 13.1 platelets 523 potassium 3.5 BUN 48 creatinine 1.93 troponin I 0.048 EKG tracing personally reviewed by me-right bundle astrid block. Sinus rhythm. ST/T wave changes Previous labs: BUN 50 creatinine 2.24 on June 23, 2023 Assessment plan: -Acute GI bleeding the patient was recently been on aspirin and Plavix. Also had maroon stool.: Slow to respond PPI Dr. Nisa Rainey from GI following EGD [June 27]: Unremarkable e does refuse colonoscopy at least twice. Patient legal guardian office came Tuesday discussed with informed. Resume aspirin. -Acute GI blood loss anemia Follow H&H -CAD with recent non-ST elevation [place], last month Hold aspirin and Plavix for now Telemetry -Acute GI bleed blood loss anemia Follow H&H -Chronic congestive heart failure from CAD. Diastolic dysfunction EF 50%: Stable -Depression and anxiety Wellbutrin 100 mg a day -Hypokalemia, replace -Chronic kidney disease stage III likely nephrosclerosis -Hypothyroid Levothyroxine 25 mcg a day -Severe cognitive impairment from late onset Alzheimer's dementia -GERD PPI -Essential hypertension Toprol-XL Repeat labs tomorrow. Hopefully discharge tomorrow. Past Medical History Past Medical History: Heart Failure, CVA/TIA, Dementia, GERD/Reflux, Hyperlipidemia, Hypertension, Memory Impairment, Pneumonia Additional Past Medical History / Comment(s): . History of Any Multi-Drug Resistant Organisms: None Reported Past Surgical History: No Surgical Hx Reported Past Psychological History: Anxiety, Depression Smoking Status: Never smoker Past Alcohol Use History: None Reported Past Drug Use History: None Reported
[2023-07-04 06:36] LABS: Anisocytosis Slight; Basophils # (A) 0.1 k/uL (0-0.2); Basophils % (A) 1 %; Eosinophils # (A) 0.5 k/uL (0-0.7); Eosinophils % (A) 5 %; HCT 29.6 % (39.0-53.0); HGB 9.2 gm/dL (13.0-17.5); Hypochromasia Moderate; Lymphocytes # (A) 1.7 k/uL (1.0-4.8); Lymphocytes % (A) 16 %; MCH 28.8 pg (25.0-35.0); MCHC 31.2 g/dL (31.0-37.0); MCV 92.3 fL (80.0-100.0); Mean Platelet Volume 8.3; Monocytes # (A) 0.7 k/uL (0-1.0); Monocytes % (A) 6 %; Neutrophils # (A) 7.4 k/uL (1.3-7.7); Neutrophils % (A) 69 %; Platelet Count 326 k/uL (150-450); RBC 3.21 m/uL (4.30-5.90); RDW 17.8 % (11.5-15.5); WBC 10.6 k/uL (3.8-10.6)
--- NOTE | 2023-07-04 10:29 | XR ---
EXAMINATION TYPE: XR chest 2V DATE OF EXAM: 07/04/2023 COMPARISON: 06/30/2023 TECHNIQUE: PA and lateral views submitted. HISTORY: Cough possible aspiration FINDINGS: The lungs are clear and there is no pneumothorax, pleural effusion, or focal pneumonia. Heart size normal and no overt failure. Osseous structures demonstrate hypertrophic and degenerative changes of the spine. Ectasia of the thoracic aorta. Arthropathy of the shoulders. Elevated left hemidiaphragm. IMPRESSION: 1. No acute process. 2. Suspicion for thoracic aortic aneurysm.
[2023-07-04 12:47] LABS: African American GFR (CKD) 55 (>60 ml/min/1.73 sqM); Anion Gap 2 mmol/L; Blood Urea Nitrogen 16 mg/dL (9-20); Calcium 7.7 mg/dL (8.4-10.2); Carbon Dioxide 31 mmol/L (22-30); Chloride 102 mmol/L (98-107); Glucose 90 mg/dL (74-99); Non-African American GFR(CKD) 48 (>60 ml/min/1.73 sqM); Sodium 135 mmol/L (137-145)
[2023-07-04] MEDS: POTASSIUM CHLORIDE ER 20 MEQ TAB.ER PO SCH (13:01)
[2023-07-04 14:28] VITALS: BMI 33.7
[2023-07-04 15:47] VITALS: BP 129/74; PULSE 83; RESP 18; TEMP 98.4
--- NOTE | 2023-07-04 21:03 | P.DS ---
Providers Date of admission: 06/27/23 16:57 Expected date of discharge: 07/04/23 Attending physician: Dong Wilson Consults: 06/27/23 15:48 Consult Physician Urgent Consulting Provider: Joellen Rainey Consult Reason/Comments: GI bleed Do you want consulting provider notified?: Yes Primary care physician: Jose L [facility] Course: Chief Complaint: Maroon stools This is a pleasant 82-year-old patient, follows with visiting physician Dr. Morelos. Chronic stable medical conditions include CHF, dementia, GERD, hypertension, hyperlipidemia, cognitive impairment, anxiety depression. Patient is not the best of historians Patient came in because he was vomited. And some blood clots came up. He also had bowel movement that was maroon in color. Patient does complain of some epigastric discomfort. Patient was here in May of this year with non-STEMI. Was not felt to be a candidate for invasive procedure was medically managed. Patient was on aspirin Plavix. Does feel a bit tired. A bit dizzy. June 2: Patient had some brown stool when he came to the floor last night. N.p.o. today. Pending endoscopy. Tired. Slight abdominal discomfort. June 3: Underwent EGD yesterday: Unremarkable. Patient being prepared for colonoscopy tomorrow. No abdominal pain. June 29: Patient still getting bowel prep for colonoscopy. Dark stools. No abdominal pain. On a liquid diet. N.p.o. from midnight. June 30: Patient again refused colonoscopy. GI communicated to me. I spoke to legal word processor public guardian came Tuesday. Explained that. At this point we will continue with conservative measurement. Patient did have a maroon stool last night. Diet has been as passports GI because the same. Patient remains off any anticoagulants/blood thinners. Follow H&H. July 01: Nurse reports was much smaller amount of somewhat loose stool last night. Aspirin will be resumed today. As upper GI is negative. No abdominal pain.. Tolerating diet July 02: Has had no bowel movement. Tolerating diet. Awaiting improved bowel movements the patient can be discharged. July 03: Stable. No abdominal pain. Tolerating diet. Will be discharged to his senior living. Prognosis guarded. Social history: Lives at a senior living. Denies smoking. States takes 4-5 drinks a week. Physical examination: VITAL SIGNS: 98.4, 83, 18, 129/74, 94% room air GENERAL:, comfortable EYES: Pupils equal. Conjunctiva sean l. HEENT: External appearance of nose and ears normal, oral cavity grossly normal. NECK: JVD not raised; masses not palpable. HEART: First and second heart sounds are normal; no edema. LUNGS: Respiratory rate normal; clear to auscultation. ABDOMEN: Soft, nontender, liver spleen not palpable, no masses palpable. PSYCH: Able to answer simple questions but forgetful l. MUSCULOSKELETAL:No Clubbing/cyanosis;muscles-grossly intact. OA INVESTIGATIONS, reviewed in the clinical context: July 03: Hemoglobin 9.2 creatinine 1.39 June 26: White count 27.1 hemoglobin 13.1 platelets 523 potassium 3.5 BUN 48 creatinine 1.93 troponin I 0.048 EKG tracing personally reviewed by me-right bundle astrid block. Sinus rhythm. ST/T wave changes Previous labs: BUN 50 creatinine 2.24 on June 23, 2023 Assessment plan: -Acute GI bleeding the patient was recently been on aspirin and Plavix. Also had maroon stool.: Slow to respond PPI Dr. Nisa Rainey from GI-to follow-up EGD [June 27]: Unremarkable e does refuse colonoscopy at least twice. Patient legal guardian office-Tuesday discussed with informed. Resume aspirin. -Acute GI blood loss anemia Follow H&H -CAD with recent non-ST elevation OK, last month Aspirin Telemetry -Acute GI bleed blood loss anemia Follow H&H -Chronic congestive heart failure from CAD. Diastolic dysfunction EF 50%: Stable -Depression and anxiety Wellbutrin 100 mg a day -Hypokalemia, replace -Chronic kidney disease stage III likely nephrosclerosis -Hypothyroid Levothyroxine 25 mcg a day -Severe cognitive impairment from late onset Alzheimer's dementia -GERD PPI -Essential hypertension Toprol-XL Disposition: Home Past Medical History Past Medical History: Heart Failure, CVA/TIA, Dementia, GERD/Reflux, Hyperlipidemia, Hypertension, Memory Impairment, Pneumonia Additional Past Medical History / Comment(s): . History of Any Multi-Drug Resistant Organisms: None Reported Past Surgical History: No Surgical Hx Reported Past Psychological History: Anxiety, Depression Smoking Status: Never smoker Past Alcohol Use History: None Reported Past Drug Use History: None Reported Plan - Discharge Summary Discharge Rx Participant: No New Discharge Prescriptions: New Pantoprazole [Protonix] 40 mg PO DAILY #30 tab Continue Levothyroxine Sodium 25 mcg PO DAILY@0800 Rivastigmine Tartrate [Exelon] 4.5 mg PO BID@799,1999 Atorvastatin [Lipitor] 80 mg PO HS@1999 Ammonium Lactate Cream [Lac-Hydrin 12% Cream] 1 applic TOPICAL BID@799,1999 Acetaminophen Tab [Tylenol] 650 mg PO BID@799,1999 Sennosides/Docusate Sodium [Senna-S 8.6-50 mg Tablet] 2 tab PO BID@799,1999 Lidocaine-Hydrocortisone 3-0.5% Rectal Cream 1 applic RECTAL QID PRN PRN Reason: Irritation Cranberry 450mg 450 mg PO BID@799,1999 Menthol-Zinc Oxide Oint [Calmoseptine Ointment] 1 applic TOPICAL DAILY PRN PRN Reason: Rash Phenylephrine HCl/Marion Butter [Preparation H Suppository] 1 supp RECTAL QID PRN PRN Reason: rectal pain polyethylene glycoL 3350 [Miralax] 17 gm PO DAILY PRN PRN Reason: Constipation Metoprolol Succinate (ER) [Toprol XL] 12.5 mg PO DAILY@0800 Divalproex [Depakote] 250 mg PO DAILY@1400 Cholecalciferol [Vitamin D3 (125 Mcg = 5000 Iu)] 125 mcg PO DAILY@0800 Aspirin EC [Ecotrin Low Dose] 81 mg PO DAILY@0800 Ascorbic Acid [Vitamin C] 1,000 mg PO BID@08,1999 buPROPion [Wellbutrin] 100 mg PO DAILY@0800 Liquacel 30 ml PO BID@08,1999 Albuterol Inhaler [Ventolin Hfa Inhaler] 2 puff INHALATION RT-Q4H PRN PRN Reason: Shortness Of Breath Or Wheezing Discontinued Clopidogrel [Plavix] 75 mg PO DAILY@0800 Furosemide [Lasix] 20 mg PO DAILY@0800 Potassium Chloride ER [K-Dur 10] 10 meq PO DAILY@0800 Famotidine [Pepcid] 20 mg PO DAILY@0800 Lactulose [Constulose] 20 gm PO BID@08,1999 metOLazone 5 mg PO DAILY@0730 Discharge Medication List Atorvastatin [Lipitor] 80 mg PO HS@199906/11/23 [History] Divalproex [Depakote] 250 mg PO DAILY@1400 06/11/23 [History] Levothyroxine Sodium 25 mcg PO DAILY@0800 06/11/23 [History] Rivastigmine Tartrate [Exelon] 4.5 mg PO BID@08,199906/11/23 [History] Acetaminophen Tab [Tylenol] 650 mg PO BID@0800,199906/12/23 [History] Ammonium Lactate Cream [Lac-Hydrin 12% Cream] 1 applic TOPICAL BID@08,199906/12/23 [History] Ascorbic Acid [Vitamin C] 1,000 mg PO BID@0800,199906/12/23 [History] Aspirin EC [Ecotrin Low Dose] 81 mg PO DAILY@0806/12/23 [History] Cholecalciferol [Vitamin D3 (125 Mcg = 5000 Iu)] 125 mcg PO DAILY@0800 06/12/23 [History] Cranberry 450mg 450 mg PO BID@08,199906/12/23 [History] Lidocaine-Hydrocortisone 3-0.5% Rectal Cream 1 applic RECTAL QID PRN 06/12/23 [History] Liquacel 30 ml PO BID@0800,199906/12/23 [History] Sennosides/Docusate Sodium [Senna-S 8.6-50 mg Tablet] 2 tab PO BID@0800,199906/12/23 [History] buPROPion [Wellbutrin] 100 mg PO DAILY@0800 06/12/23 [History] Albuterol Inhaler [Ventolin Hfa Inhaler] 2 puff INHALATION RT-Q4H PRN 06/27/23 [History] Menthol-Zinc Oxide Oint [Calmoseptine Ointment] 1 applic TOPICAL DAILY PRN 06/27/23 [History] Metoprolol Succinate (ER) [Toprol XL] 12.5 mg PO DAILY@0800 06/27/23 [History] Phenylephrine HCl/Marion Butter [Preparation H Suppository] 1 supp RECTAL QID PRN 06/27/23 [History] polyethylene glycoL 3350 [Miralax] 17 gm PO DAILY PRN 06/27/23 [History] Pantoprazole [Protonix] 40 mg PO DAILY #30 tab 07/04/23 [Rx] Follow up Appointment(s)/Referral(s): Joellen Rainey MD [STAFF PHYSICIAN] - 2 Weeks Jose L Morelos MD [Primary Care Provider] - 1-2 days Patient Instructions/Handouts: Gastrointestinal Bleeding (DC), Dementia (GEN) Activity/Diet/Wound Care/Special Instructions: Please call to Make follow up Appointments. Discharge Disposition: TRANSFER TO SNF/ECF
--- NOTE | 2023-07-08 14:07 | CDI ---
Documentation Clarification Form Date: 07/08/2023 01:32:31 PM From: Silvina Pappas RN, CCDS Email: [email or web address] Admit Date: 06/27/2023 04:57:00 PM Patient Name: Miguel Angel Escobedo Visit Number: [id number] Discharge Date: 07/04/2023 05:22:00 PM ATTENTION: The Clinical Documentation Specialists (CDI) and [facility] Coding Staff appreciate your assistance in clarifying documentation. Please respond to the clarification below the line at the bottom and electronically sign. The CDI & [facility] Coding staff will review the response and follow-up if needed. Please note: Queries are made part of the Legal Health Record. If you have any questions, please contact the author of this message via ITS. Dr. Dong Wilson There is documentation in the H&P and progress notes of acute GI bleed with patient vomiting blood clots and having maroon stools. Based on this information and the findings below, is there an additional diagnosis that is clinically appropriate for this patient? History/Risk Factors: CHF, CVA, dementia, GERD, HLD, HTN. Presented with vomiting blood clots and bloody bowel movement. Admitted with GI bleed. Clinical Indicators: H&P: "Acute upper GI bleeding, the patient has recently been on Aspirin and Plavix. Also had maroon stool. Aspirin and Plavix held. 06/30 IM: "Patient again refused colonoscopy. Patient did have a maroon stool last night. Patient remains off any anticoagulants/blood thinners. Follow H&H." 06/26-07/03 Hgb 13.2-9.2 06/26 Stool OB positive Treatment: Hold Plavix and Aspirin; Monitor H/H; IV Protonix 40mg IV x1 on 06/26; IV Protonix 40mg BID 06/26-06/30 then po 06/30-07/03; IV Iron 125mg daily 06/28-07/03; 06/27 GI Consult: "brought in for multiple episodes of emesis with noted blood clots and maroon-colored stools. No previous history of known GI bleed. Avoid NSAIDs, hold Aspirin and Plavix." 06/27 EGD: small hiatal hernia, no evidence of active upper GI bleed IV Fluid: 1L 0.9 NS IV bolus on 06/26 Is there an additional diagnosis that is clinically appropriate for this patient? [ + ] GI bleed due to anticoagulation [ ] No additional diagnosis [ ] Other, please specify [ ] Unable to determine MTDD
== END 2023-07-04 17:22 | DRG 813 ==
LOC: EC 13:29 → 5NMEDONC 15:48 → OBSVTOIN 16:57 → 5NMEDONC 20:50
PROVIDERS: ADMIT Hospitalist; ATTEND Hospitalist
PROC: 0DJ08ZZ Inspection of Upper Intestinal Tract, Via Natural or Artificial Opening Endoscopic (ICD-10-PCS; principal; 2023-06-28 08:20)
DX: D68.32 Hemorrhagic disorder due to extrinsic circulating anticoagulants (principal); K92.1 Melena; D62 Acute posthemorrhagic anemia; I50.32 Chronic diastolic (congestive) heart failure; I11.0 Hypertensive heart disease with heart failure; K31.7 Polyp of stomach and duodenum; G30.1 Alzheimer's disease with late onset; I45.10 Unspecified right bundle-branch block; F02.C0 Dementia in other diseases classified elsewhere, severe, without behavioral disturbance, psychotic disturbance, mood disturbance, and anxiety; F32.A Depression, unspecified; K44.9 Diaphragmatic hernia without obstruction or gangrene; F41.9 Anxiety disorder, unspecified; E78.5 Hyperlipidemia, unspecified; Z79.02 Long term (current) use of antithrombotics/antiplatelets; Z79.82 Long term (current) use of aspirin; Z87.01 Personal history of pneumonia (recurrent); Z79.890 Hormone replacement therapy; Z79.899 Other long term (current) drug therapy; I25.2 Old myocardial infarction
CPT/HCPCS: 36415; 43235; 71045; 71046; 80048; 80053; 82272; 83605; 83735; 84132; 84484; 85025; 85027; 85610; 85730; 86850; 86900; 86901; 93005; 96361; 96374; 99285

== ENCOUNTER 2023-07-05 17:14 | Inpatient (IN) | payer MEDICARE, BC ==
[2023-07-05] MEDS: SODIUM CHLORIDE 0.9% 500 ML 500 ML IV STA (18:26)
[2023-07-05] MEDS: ONDANSETRON 4 MG/2 ML VIAL IVP STA (18:26)
[2023-07-05] MEDS: PANTOPRAZOLE 40 MG/10 ML VIAL IVP STA (18:26)
[2023-07-05] MEDS: SODIUM CHLORIDE 0.9% 1,000 ML IV STA (18:28)
--- NOTE | 2023-07-05 18:31 | ED ---
Weakness HPI - General Chief complaint: Weakness Stated complaint: Nausea Time Seen by Provider: 07/05/23 17:24 Source: EMS Mode of arrival: EMS Limitations: physical limitation - History of Present Illness Initial comments: This 82-year-old male presents with complaint of some generalized weakness. He was just discharged from the hospital yesterday. He was worked up for possible GI bleed at that time. He apparently had some melanotic stools and might of had some hematochezia at 1 point. He had a negative EGD. He refused colonoscopy. He was hospitalized for approximately 1 week. He is denying any current abdominal pain. He denies any known blood in his stool. He apparently does have some degree of dementia per records. He denies any fevers or chills. Patient may be a poor historian due to the dementia. No family members are currently with him. Much of history is obtained per review of old records. He denies any shortness of breath or chest pain. He does have a Mccord catheter in place. No other complaints or modifying factors. - Related Data Home Medications Medication Instructions Recorded Confirmed Atorvastatin [Lipitor] 80 mg PO HS@199906/11/23 06/27/23 Divalproex [Depakote] 250 mg PO DAILY@1400 06/11/23 06/27/23 Levothyroxine Sodium 25 mcg PO DAILY@0800 06/11/23 06/27/23 Rivastigmine Tartrate [Exelon] 4.5 mg PO BID@0800,199906/11/23 06/27/23 Acetaminophen Tab [Tylenol] 650 mg PO BID@0800,199906/12/23 06/27/23 Ammonium Lactate Cream [Lac-Hydrin 1 applic TOPICAL BID@0800,199906/12/23 06/27/23 12% Cream] Ascorbic Acid [Vitamin C] 1,000 mg PO BID@0800,199906/12/23 06/27/23 Aspirin EC [Ecotrin Low Dose] 81 mg PO DAILY@0800 06/12/23 06/27/23 Cholecalciferol [Vitamin D3 (125 125 mcg PO DAILY@0800 06/12/23 06/27/23 Mcg = 5000 Iu)] Cranberry 450mg 450 mg PO BID@0800,199906/12/23 06/27/23 Lidocaine-Hydrocortisone 3-0.5% 1 applic RECTAL QID PRN 06/12/23 06/27/23 Rectal Cream Liquacel 30 ml PO BID@08,199906/12/23 06/27/23 Sennosides/Docusate Sodium 2 tab PO BID@08,199906/12/23 06/27/23 [Senna-S 8.6-50 mg Tablet] buPROPion [Wellbutrin] 100 mg PO DAILY@0800 06/12/23 06/27/23 Albuterol Inhaler [Ventolin Hfa 2 puff INHALATION RT-Q4H PRN 06/27/23 06/27/23 Inhaler] Menthol-Zinc Oxide Oint 1 applic TOPICAL DAILY PRN 06/27/23 06/27/23 [Calmoseptine Ointment] Metoprolol Succinate (ER) [Toprol 12.5 mg PO DAILY@0806/27/23 06/27/23 XL] Phenylephrine HCl/[place] Butter 1 supp RECTAL QID PRN 06/27/23 06/27/23 [Preparation H Suppository] polyethylene glycoL 3350 [Miralax] 17 gm PO DAILY PRN 06/27/23 06/27/23 Previous Rx's Medication Instructions Recorded Pantoprazole [Protonix] 40 mg PO DAILY #30 tab 07/04/23 Allergies Allergy/AdvReac Type Severity Reaction Status Date / Time No Known Allergies Allergy Verified 07/05/23 20:59 Review of Systems ROS Statement: Those systems with pertinent positive or pertinent negative responses have been documented in the HPI. ROS Other: All systems not noted in ROS Statement are negative. Past Medical History Past Medical History: Heart Failure, CVA/TIA, Dementia, GERD/Reflux, Hyperlipidemia, Hypertension, Memory Impairment, Pneumonia Additional Past Medical History / Comment(s): . History of Any Multi-Drug Resistant Organisms: None Reported Past Surgical History: No Surgical Hx Reported Past Psychological History: Anxiety, Depression Smoking Status: Never smoker Past Alcohol Use History: None Reported Past Drug Use History: None Reported General Exam - General Exam Comments Initial Comments: GENERAL: The patient is well nourished and well hydrated. VITAL SIGNS: Heart rate, blood pressure, respiratory rate reviewed as recorded in nurse's notes. EYES: Pupils are round and reactive. Extraocular movements are intact. No conjunctival / lid redness or swelling. ENT: No external evidence of injury, swelling, or ecchymosis. Airway is patent. Throat is clear. NECK: Nontender. No swelling or evidence of injury. No subcutaneous emphysema. Trachea is midline. No thyroid mass. HEART: Regular rate and rhythm. Good peripheral pulses. LUNGS/CHEST: Breath sounds clear and equal bilaterally. No rales, rhonchi, or wheezes. No ecchymosis, subcutaneous emphysema, or tenderness. ABDOMEN: Abdomen soft without tenderness. No palpable masses or organomegaly. No peritoneal signs. No abdominal wall swelling or ecchymosis. EXTREMITIES: No extremity tenderness. Normal muscle tone and function. No thoracolumbar tenderness. NEUROLOGIC: Sensation is grossly intact. Cranial nerve exam reveals face is symmetrical, tongue is midline, speech is clear. SKIN: No abrasions or ecchymosis is noted. No induration or masses noted. PSYCHIATRIC: Alert and pleasant, appropriate behavior. Limitations: physical limitation Course Vital Signs 07/05/23 07/05/23 07/05/23 17:39 17:47 18:47 Temperature 97.7 F Pulse Rate 81 91 79 Respiratory 16 22 20 Rate Blood Pressure 129/79 145/95 148/76 O2 Sat by Pulse 94 L 98 95 Oximetry 07/05/23 07/05/23 19:10 19:46 Temperature Pulse Rate 79 Respiratory 18 20 Rate Blood Pressure 149/98 O2 Sat by Pulse 99 Oximetry Medical Decision Making - Medical Decision Making The patient was seen and examined. All diagnostics were reviewed. Pre-Hospital EKG does show a normal sinus rhythm with a heart rate of 76. There is significant artifact identified. Overall no acute ST elevation is identified per my interpretation. The intervals appear to be normal. The patient had an EKG done upon entrance to the emergency department and this does show normal sinus rhythm at a rate of 79. There is widened QRS at 174 with associated suspected left bundle branch block. There is associated ST and T wave changes noted but no evidence of myocardial infarction per my interpretation. Intervals otherwise do show elevation of the QTc at 500. Hemoccult stool is taken and sent to lab. IV is established and patient is hydrated. The Hemoccult is positive. The hemoglobin is stable at 11.3. Previous hemoglobin was 9.2. Re mainder of labs are stable. The exact cause of his weakness is not definitively determined. He apparently is in a assisted living type facility and is too weak to ambulate. He potentially may require a higher level of care, possibly a memory care unit that is full ECF. The case is discussed with Dr. Wilson from internal medicine and he is agreeable with admission. Was pt. sent in by a medical professional or institution (, [employer], PYTHON DEVELOPER, urgent care, hospital, or residential...) When possible be specific @ -Patient was sent in by the staff at the assisted living facility. Did you speak to anyone other than the patient for history (EMS, parent, family, police, friend...)? What history was obtained from this source @ -No Did you review nursing and triage notes (agree or disagree)? Why? @ -I reviewed and agree with nursing and triage notes Were old charts reviewed (outside hosp., previous admission, EMS record, old EKG, old radiological studies, urgent care reports/EKG's, residential records)? Report findings @ -Old records were reviewed in detail. The patient was offered colonoscopy on multiple occasions and refused. He has known GI bleed. Differential Diagnosis (chest pain, altered mental status, abdominal pain women, abdominal pain men, vaginal bleeding, weakness, fever, dyspnea, syncope, headache, dizziness, GI bleed, back pain, seizure, CVA, palpatations, mental health, musculoskeletal)? @ -GI bleed, weakness, inability to ambulate. EKG interpreted by me (3pts min.). @ -As above X-rays interpreted by me (1pt min.). @ -None done CT interpreted by me (1pt min.). @ -None done U/S interpreted by me (1pt. min.). @ -None done What testing was considered but not performed or refused? (CT, X-rays, U/S, labs)? Why? @ -None What meds were considered but not given or refused? Why? @ -None Did you discuss the management of the patient with other professionals (professionals i.e. DEMETRIS Lazo, PYTHON DEVELOPER, lab, RT, psych nurse, social services coordinator, bilingual counter sales retail, teacher, gifts officer, welfare case worker)? Give summary @ -Case is discussed with internal medicine and they are agreeable with admission. Was smoking cessation discussed for >3mins.? @ -No Was critical care preformed (if so, how long)? @ -No Were there social determinants of health that impacted care today? How? (Ho melessness, low income, unemployed, alcoholism, drug addiction, transportation, low edu. Level, literacy, decrease access to med. care, senior care, rehab)? @ -Patient's dementia may potentially be a social determinant that impacted his health care today. Was there de-escalation of care discussed even if they declined (Discuss DNR or withdrawal of care, Hospice)? DNR status @ -No What co-morbidities impacted this encounter? (DM, HTN, Smoking, COPD, CAD, Cancer, CVA, ARF, Chemo, Hep., AIDS, mental health diagnosis, sleep apnea, morbid obesity)? @ -Gastrointestinal bleeding, dementia. Was patient admitted / discharged? Hospital course, mention meds given and route, prescriptions, significant lab abnormalities, going to OR and other pertinent info. @ -Patient was admitted, please see above. Undiagnosed new problem with uncertain prognosis? @ -No Drug Therapy requiring intensive monitoring for toxicity (Heparin, Nitro, Insulin, Cardizem)? @ -No Were any procedures done? @ -No Diagnosis/symptom? @ -Weakness, inability to ambulate, GI bleed Acute, or Chronic, or Acute on Chronic? @ -Acute on chronic Uncomplicated (without systemic symptoms) or Complicated (systemic symptoms)? @ -Uncomplicated Side effects of treatment? @ -No Exacerbation, Progression, or Severe Exacerbation? @ -No Poses a threat to life or bodily function? How? (Chest pain, [place], [place], pneumonia, PE, COPD, DKA, ARF, appy, cholecystitis, CVA, Diverticulitis, Homicidal, Suicidal, threat to staff... and all critical care pts) @ -No - Lab Data Result diagrams: 07/05/23 18:27 07/05/23 18:27 Lab Results 07/05/23 07/05/23 07/05/23 Range/Units 18:22 18:27 18:27 WBC 13.5 H (3.8-10.6) k/uL RBC 3.96 L (4.30-5.90) m/uL Hgb 11.3 L (13.0-17.5) gm/dL Hct 36.4 L (39.0-53.0) % MCV 92.0 (80.0-100.0) fL MCH 28.6 (25.0-35.0) pg MCHC 31.0 (31.0-37.0) g/dL RDW 18.5 H (11.5-15.5) % Plt Count 333 (150-450) k/uL MPV 7.9 Neutrophils % 79 % Lymphocytes % 13 % Monocytes % 5 % Eosinophils % 2 % Basophils % 0 % Neutrophils # 10.6 H (1.3-7.7) k/uL Lymphocytes # 1.7 (1.0-4.8) k/uL Monocytes # 0.6 (0-1.0) k/uL Eosinophils # 0.2 (0-0.7) k/uL Basophils # 0.0 (0-0.2) k/uL Hypochromasia Moderate Anisocytosis Slight PT (10.0-12.5) sec INR (<1.2) APTT (22.0-30.0) sec Sodium (137-145) mmol/L Potassium (3.5-5.1) mmol/L Chloride (98-107) mmol/L Carbon Dioxide (22-30) mmol/L Anion Gap mmol/L BUN (9-20) mg/dL Creatinine (0.66-1.25) mg/dL Est GFR (CKD-EPI)AfAm (>60 ml/min/1.73 sqM) Est GFR (CKD-EPI)NonAf (>60 ml/min/1.73 sqM) Glucose (74-99) mg/dL Calcium (8.4-10.2) mg/dL Total Bilirubin (0.2-1.3) mg/dL AST (17-59) U/L ALT (4-49) U/L Alkaline Phosphatase (38-126) U/L Ammonia <9 (<30) umol/L Troponin I (0.000-0.034) ng/mL Total Protein (6.3-8.2) g/dL Albumin (3.5-5.0) g/dL Lipase (23-300) U/L Stool Occult Blood Positive (Negative) Blood Type Blood Type Recheck Bld Type Recheck Status Antibody Screen Spec Expiration Date 07/05/23 07/05/23 07/05/23 Range/Units 18:27 18:27 18:27 WBC (3.8-10.6) k/uL RBC (4.30-5.90) m/uL Hgb (13.0-17.5) gm/dL Hct (39.0-53.0) % MCV (80.0-100.0) fL MCH (25.0-35.0) pg MCHC (31.0-37.0) g/dL RDW (11.5-15.5) % Plt Count (150-450) k/uL MPV Neutrophils % % Lymphocytes % % Monocytes % % Eosinophils % % Basophils % % Neutrophils # (1.3-7.7) k/uL Lymphocytes # (1.0-4.8) k/uL Monocytes # (0-1.0) k/uL Eosinophils # (0-0.7) k/uL Basophils # (0-0.2) k/uL Hypochromasia Anisocytosis PT 10.6 (10.0-12.5) sec INR 1.0 (<1.2) APTT 24.8 (22.0-30.0) sec Sodium 139 (137-145) mmol/L Potassium 3.7 (3.5-5.1) mmol/L Chloride 104 (98-107) mmol/L Carbon Dioxide 28 (22-30) mmol/L Anion Gap 7 mmol/L BUN 17 (9-20) mg/dL Creatinine 1.28 H (0.66-1.25) mg/dL Est GFR (CKD-EPI)AfAm 61 (>60 ml/min/1.73 sqM) Est GFR (CKD-EPI)NonAf 53 (>60 ml/min/1.73 sqM) Glucose 112 H (74-99) mg/dL Calcium 8.1 L (8.4-10.2) mg/dL Total Bilirubin 0.7 (0.2-1.3) mg/dL AST 21 (17-59) U/L ALT 12 (4-49) U/L Alkaline Phosphatase 95 (38-126) U/L Ammonia (<30) umol/L Troponin I 0.016 (0.000-0.034) ng/mL Total Protein 5.3 L (6.3-8.2) g/dL Albumin 2.7 L (3.5-5.0) g/dL Lipase 161 (23-300) U/L Stool Occult Blood (Negative) Blood Type Blood Type Recheck Bld Type Recheck Status Antibody Screen Spec Expiration Date 07/05/23 Range/Units 19:00 WBC (3.8-10.6) k/uL RBC (4.30-5.90) m/uL Hgb (13.0-17.5) gm/dL Hct (39.0-53.0) % MCV (80.0-100.0) fL MCH (25.0-35.0) pg MCHC (31.0-37.0) g/dL RDW (11.5-15.5) % Plt Count (150-450) k/uL MPV Neutrophils % % Lymphocytes % % Monocytes % % Eosinophils % % Basophils % % Neutrophils # (1.3-7.7) k/uL Lymphocytes # (1.0-4.8) k/uL Monocytes # (0-1.0) k/uL Eosinophils # (0-0.7) k/uL Basophils # (0-0.2) k/uL Hypochromasia Anisocytosis PT (10.0-12.5) sec INR (<1.2) APTT (22.0-30.0) sec Sodium (137-145) mmol/L Potassium (3.5-5.1) mmol/L Chloride (98-107) mmol/L Carbon Dioxide (22-30) mmol/L Anion Gap mmol/L BUN (9-20) mg/dL Creatinine (0.66-1.25) mg/dL Est GFR (CKD-EPI)AfAm (>60 ml/min/1.73 sqM) Est GFR (CKD-EPI)NonAf (>60 ml/min/1.73 sqM) Glucose (74-99) mg/dL Calcium (8.4-10.2) mg/dL Total Bilirubin (0.2-1.3) mg/dL AST (17-59) U/L ALT (4-49) U/L Alkaline Phosphatase (38-126) U/L Ammonia (<30) umol/L Troponin I (0.000-0.034) ng/mL Total Protein (6.3-8.2) g/dL Albumin (3.5-5.0) g/dL Lipase (23-300) U/L Stool Occult Blood (Negative) Blood Type A Positive Blood Type Recheck A Pos Bld Type Recheck Status No Antibody Screen NEGATIVE Spec Expiration Date 07/08/20232299 Disposition Clinical Impression: Weakness, Gastrointestinal bleed, Inability to walk Disposition: ADMITTED IP TO THIS [facility] Condition: Fair Is patient prescribed a controlled substance at d/c from ED?: No Referrals: None,Stated [Primary Care Provider] - 1-2 days Time of Disposition: 21:14 Decision Date: 07/05/23 Decision Time: 21:15
[2023-07-05 18:51] LABS: Anisocytosis Slight; Basophils % (A) 0 %; Eosinophils # (A) 0.2 k/uL (0-0.7); Eosinophils % (A) 2 %; HCT 36.4 % (39.0-53.0); HGB 11.3 gm/dL (13.0-17.5); Hypochromasia Moderate; Lymphocytes # (A) 1.7 k/uL (1.0-4.8); Lymphocytes % (A) 13 %; MCH 28.6 pg (25.0-35.0); Mean Platelet Volume 7.9; Monocytes # (A) 0.6 k/uL (0-1.0); Monocytes % (A) 5 %; Neutrophils # (A) 10.6 k/uL (1.3-7.7); Neutrophils % (A) 79 %; Platelet Count 333 k/uL (150-450); RBC 3.96 m/uL (4.30-5.90); RDW 18.5 % (11.5-15.5); WBC 13.5 k/uL (3.8-10.6)
[2023-07-05 19:00] LABS: Partial Thromboplastin Time 24.8 sec (22.0-30.0); Prothrombin Time 10.6 sec (10.0-12.5)
[2023-07-05 19:08] LABS: ALT 12 U/L (4-49); AST 21 U/L (17-59); African American GFR (CKD) 61 (>60 ml/min/1.73 sqM); Albumin 2.7 g/dL (3.5-5.0); Alkaline Phosphatase 95 U/L (38-126); Anion Gap 7 mmol/L; Blood Urea Nitrogen 17 mg/dL (9-20); Calcium 8.1 mg/dL (8.4-10.2); Carbon Dioxide 28 mmol/L (22-30); Chloride 104 mmol/L (98-107); Glucose 112 mg/dL (74-99); Lipase 161 U/L (23-300); Non-African American GFR(CKD) 53 (>60 ml/min/1.73 sqM); Potassium 3.7 mmol/L (3.5-5.1); Sodium 139 mmol/L (137-145); Total Bilirubin 0.7 mg/dL (0.2-1.3); Total Protein 5.3 g/dL (6.3-8.2)
[2023-07-05] MEDS ORDERED: NALOXONE 0.4 MG/ML 1 ML VIAL IV PRN (21:16)
[2023-07-05] MEDS ORDERED: ACETAMINOPHEN TAB 325 MG TAB PO PRN (21:16)
[2023-07-05] MEDS ORDERED: ONDANSETRON 4 MG/2 ML VIAL IVP PRN (21:16)
[2023-07-05] MEDS ORDERED: ALBUTEROL NEBULIZED 2.5 MG/3 ML INHALATION PRN (21:18)
[2023-07-05] MEDS ORDERED: COCOA BUTTER RECTAL PRN (21:18)
[2023-07-05] MEDS ORDERED: PHENYLEPHRINE HCL RECTAL PRN (21:18)
[2023-07-05] MEDS ORDERED: [UNRECOGNIZED DRUG - OTHER] RECTAL PRN (21:18)
[2023-07-05] MEDS ORDERED: CYANOCOBALAMIN 1,000 MCG/ML 1 ML VIAL SQ SCH (21:30)
[2023-07-05] MEDS ORDERED: BENZOCAINE 20% HEMORRHOIDAL OINT 28GM RECTAL PRN (22:00)
[2023-07-06 07:57] LABS: Anisocytosis Slight; Basophils # (A) 0.1 k/uL (0-0.2); Basophils % (A) 1 %; Eosinophils # (A) 0.3 k/uL (0-0.7); Eosinophils % (A) 3 %; HCT 31.5 % (39.0-53.0); HGB 9.9 gm/dL (13.0-17.5); Hypochromasia Marked; Lymphocytes # (A) 1.6 k/uL (1.0-4.8); Lymphocytes % (A) 14 %; MCH 30.2 pg (25.0-35.0); MCHC 31.5 g/dL (31.0-37.0); MCV 95.9 fL (80.0-100.0); Macrocytosis Slight; Mean Platelet Volume 8.2; Monocytes # (A) 0.8 k/uL (0-1.0); Monocytes % (A) 7 %; Neutrophils # (A) 8.1 k/uL (1.3-7.7); Neutrophils % (A) 72 %; Platelet Count 295 k/uL (150-450); RBC 3.28 m/uL (4.30-5.90); RDW 18.7 % (11.5-15.5); WBC 11.3 k/uL (3.8-10.6)
[2023-07-06] MEDS ORDERED: NON FORMULARY DRUG (Liquacel 30 ML) PO SCH (08:00)
[2023-07-06] MEDS ORDERED: NON FORMULARY DRUG (Cranberry 450mg 450 MG) PO SCH (08:00)
[2023-07-06] MEDS: ASPIRIN 81 MG PO SCH (08:13)
[2023-07-06] MEDS: PANTOPRAZOLE 40 MG TABLET PO SCH (08:13)
[2023-07-06] MEDS: LEVOTHYROXINE 25 MCG TAB PO SCH (08:13)
[2023-07-06] MEDS: SENNOSIDES-DOCUSATE SODIUM 1 EACH TAB PO SCH (08:13)
[2023-07-06] MEDS: METOPROLOL SUCCINATE (ER) 25 MG TAB.ER.24H PO SCH (08:13)
[2023-07-06] MEDS: CHOLECALCIFEROL 125 MCG (5000 IU) TABLET PO SCH (08:13)
[2023-07-06] MEDS: ASCORBIC ACID 500 MG TAB PO SCH (08:13)
[2023-07-06] MEDS: RIVASTIGMINE TARTRATE 4.5 MG PO SCH (08:20)
[2023-07-06] MEDS: buPROPion 100 MG TAB PO SCH (08:49)
[2023-07-06] MEDS: AMMONIUM LACTATE 12% CREAM 140 GM TUBE TOPICAL SCH (08:49)
[2023-07-06] MEDS ORDERED: PANTOPRAZOLE 40 MG/10 ML VIAL IV SCH (09:00)
[2023-07-06] MEDS ORDERED: polyethylene glycoL 3350 17 GM POWD.PACK PO PRN (09:00)
[2023-07-06] MEDS ORDERED: MENTHOL-ZINC OXIDE OINT 113 GM TUBE TOPICAL PRN (09:00)
[2023-07-06] MEDS: DIVALPROEX 250 MG TABLET.DR PO SCH (16:51)
--- NOTE | 2023-07-06 19:20 | P.HPIM ---
History of Present Illness H&P Date: 07/06/23 Chief Complaint: Weakness This is a pleasant 82-year-old patient, follows with visiting physician Dr. Morelos. Chronic stable medical conditions include CHF, dementia, GERD, hypertension, hyperlipidemia, cognitive impairment, anxiety depression. Patient is not the best of historians. Has a public guardian. Non-STEMI in May of this year. Not felt to be a candidate for invasive procedure. Patient in the hospital from June 26 through June. Presented with maroon stools. Had at least 2 3 episodes of bleeding here. EGD was unremarkable. Patient declined colonoscopy by Dr. Nisa Rainey at least on 2 occasions. I spoke to the legal guardian's office. It was decided to let it go. Patient was discharged to [facility]. Patient was returned to the ER yesterday. He vomited x 1 yesterday. He was not really able to ambulate hence they sent him for increased weakness. Patient's hemoglobin this morning 9.9. It was 9.2 when he was discharged. Patient still is at baseline he does walk with support. Oftentimes his leg gives way. Denies any abdominal pain. He ate his breakfast this morning. Review of systems: GEN.: Tired EYES: None HEENT: None NECK: None RESPIRATORY: None CARDIOVASCULAR: None GASTROINTESTINAL: [As above GENITOURINARY: None MUSCULOSKELETAL: Joint pains e LYMPHATICS: None HEMATOLOGICAL: None PSYCHIATRY: Forgetful e NEUROLOGICAL: At her baseline unsteady on his feet Social history: Lives at a senior living. Denies smoking. States takes 4-5 drinks a week. Physical examination: VITAL SIGNS: 98.5, 66, 17, 131 x 80, 93% room air GENERAL:, comfortable EYES: Pupils equal. Conjunctiva sean l. HEENT: External appearance of nose and ears normal, oral cavity grossly normal. NECK: JVD not raised; masses not palpable. HEART: First and second heart sounds are normal; no edema. LUNGS: Respiratory rate normal; clear to auscultation. ABDOMEN: Soft, nontender, liver spleen not palpable, no masses palpable. PSYCH: Able to answer simple questions but forgetful l. MUSCULOSKELETAL:No Clubbing/cyanosis;muscles-grossly intact. OA NEUROLOGICAL: Cranial nerves grossly intact; no facial asymmetry, power and sensation grossly intact. LYMPHATICS: No lymph nodes palpable in the axilla and neck INVESTIGATIONS, reviewed in the clinical context: July 05: White count 9.3 hemoglobin 9.9 platelets 295 potassium 3.7 BUN 17 creatinine 1.28 AG tracing normal sinus rhythm. Nonspecific ST-T wave changes. Previous labs July 03: Hemoglobin 9.2 creatinine 1.39 Assessment plan: -Acute on chronic medical debility. Patient was somewhat unsteady on his feet at the baseline with right leg some times giving way as per the patient. Now upon discharge patient is very weak. Patient did drop his hemoglobin not enough to be transfused. And patient was in bed in the hospital. All these have added to increase debility. Patient will benefit from physical therapy and possible rehab PT OT. Consult social welfare research worker for rehab assessment -Recent GI bleeding the patient was recently been on aspirin and Plavix. With recurrent maroon stools. Patient had refused colonoscopy at least on 2 occasion. Legal guardian's office was informed. EGD was unremarkable. Was seen by Dr. Nisa Rainey PPI Aspirin. -Acute GI blood loss anemia from recent bleed Follow H&H -CAD with recent non-ST elevation [place], May 2023 Aspirin -Chronic congestive heart failure from CAD. Diastolic dysfunction EF 50%: Stable -Depression and anxiety Wellbutrin 100 mg a day -Chronic kidney disease stage III likely nephrosclerosis -Hypothyroid Levothyroxine 25 mcg a day -Severe cognitive impairment from late onset Alzheimer's dementia -GERD PPI -Essential hypertension Toprol-XL -Has a legal guardian. William Yeung. [phone]. [phone] -Full code Home medications resumed. PT OT. footwear factory worker consulted for placement. Past Medical History Past Medical History: Heart Failure, CVA/TIA, Dementia, GERD/Reflux, Hyperlipidemia, Hypertension, Memory Impairment, Pneumonia Additional Past Medical History / Comment(s): . History of Any Multi-Drug Resistant Organisms: None Reported Past Surgical History: No Surgical Hx Reported Past Psychological History: Anxiety, Depression Smoking Status: Never smoker Past Alcohol Use History: None Reported Past Drug Use History: None Reported Medications and Allergies Home Medications Medication Instructions Recorded Confirmed Type Atorvastatin [Lipitor] 80 mg PO HS@199906/11/23 07/05/23 History Divalproex [Depakote] 250 mg PO DAILY@1400 06/11/23 07/05/23 History Levothyroxine Sodium 25 mcg PO DAILY@0800 06/11/23 07/05/23 History Rivastigmine Tartrate [Exelon] 4.5 mg PO BID@0800,199906/11/23 07/05/23 History Acetaminophen Tab [Tylenol] 650 mg PO BID@0800,199906/12/23 07/05/23 History Ammonium Lactate Cream [Lac-Hydrin 1 applic TOPICAL BID@0800,199906/12/23 07/05/23 History 12% Cream] Ascorbic Acid [Vitamin C] 1,000 mg PO BID@0800,199906/12/23 07/05/23 History Aspirin EC [Ecotrin Low Dose] 81 mg PO DAILY@79906/12/23 07/05/23 History Cholecalciferol [Vitamin D3 (125 125 mcg PO DAILY@79906/12/23 07/05/23 History Mcg = 5000 Iu)] Cranberry 450mg 450 mg PO BID@0800,199906/12/23 07/05/23 History Lidocaine-Hydrocortisone 3-0.5% 1 applic RECTAL QID PRN 06/12/23 07/05/23 History Rectal Cream Liquacel 30 ml PO BID@0800,199906/12/23 07/05/23 History Sennosides/Docusate Sodium 2 tab PO BID@0800,199906/12/23 07/05/23 History [Senna-S 8.6-50 mg Tablet] buPROPion [Wellbutrin] 100 mg PO DAILY@0800 06/12/23 07/05/23 History Albuterol Inhaler [Ventolin Hfa 2 puff INHALATION RT-Q4H PRN 06/27/23 07/05/23 History Inhaler] Menthol-Zinc Oxide Oint 1 applic TOPICAL DAILY PRN 06/27/23 07/05/23 History [Calmoseptine Ointment] Metoprolol Succinate (ER) [Toprol 12.5 mg PO DAILY@0806/27/23 07/05/23 History XL] Phenylephrine HCl/[place] Butter 1 supp RECTAL QID PRN 06/27/23 07/05/23 History [Preparation H Suppository] polyethylene glycoL 3350 [Miralax] 17 gm PO DAILY PRN 06/27/23 07/05/23 History Cyanocobalamin [Vitamin B-12 1,000 mg SQ Q30D 07/05/23 07/06/23 History Injection] Pantoprazole [Protonix] 40 mg PO DAILY@0800 07/05/23 07/05/23 History Allergies Allergy/AdvReac Type Severity Reaction Status Date / Time No Known Allergies Allergy Verified 07/05/23 20:59 Physical Exam Vitals: Vital Signs Temp Pulse Pulse Resp BP BP Pulse Ox 07/06/23 07:00 98.5 F 66 17 131/80 93 L 07/06/23 02:00 98.5 F 76 16 145/85 94 L 07/05/23 22:34 97.6 F 77 16 148/90 99 07/05/23 21:47 76 158/92 97 07/05/23 19:46 20 07/05/23 19:10 79 18 149/98 99 07/05/23 18:47 79 20 148/76 95 07/05/23 17:47 91 22 145/95 98 07/05/23 17:39 97.7 F 81 16 129/79 94 L Intake and Output 07/05/23 07/06/23 07/06/23 22:59 06:59 14:59 Intake Total 120 Output Total 600 250 Balance -600 -250 120 Intake: Oral 120 Output: Urine 600 250 Uretheral (Mccord) 600 Other: Voiding Method Indwelling Catheter Weight 106.73 kg Results CBC & Chem 7: 07/06/23 06:24 07/05/23 18:27 Labs: Abnormal Lab Results - Last 24 Hours (Table) 07/05/23 07/05/23 07/06/23 Range/Units 18:27 18:27 06:24 WBC 13.5 H 11.3 H (3.8-10.6) k/uL RBC 3.96 L 3.28 L (4.30-5.90) m/uL Hgb 11.3 L 9.9 L (13.0-17.5) gm/dL Hct 36.4 L 31.5 L (39.0-53.0) % RDW 18.5 H 18.7 H (11.5-15.5) % Neutrophils # 10.6 H 8.1 H (1.3-7.7) k/uL Creatinine 1.28 H (0.66-1.25) mg/dL Glucose 112 H (74-99) mg/dL Calcium 8.1 L (8.4-10.2) mg/dL Total Protein 5.3 L (6.3-8.2) g/dL Albumin 2.7 L (3.5-5.0) g/dL Thrombosis Risk Factor Assmnt - Choose All That Apply Any of the Below Risk Factors Present?: Yes Each Factor Represents 1 point: Obesity (BMI >25) Other Risk Factors: Yes Each Risk Factor Represents 3 Points: Age 75 years or older Other congenital or acquired thrombophilia - If yes, enter type in comment: No Thrombosis Risk Factor Assessment Total Risk Factor Score: 4 Thrombosis Risk Factor Assessment Level: Moderate Risk
[2023-07-06] MEDS: ATORVASTATIN 80 MG TAB PO SCH (20:04)
[2023-07-07 08:05] VITALS: PULSE 78
--- NOTE | 2023-07-07 13:32 | P.DS ---
Providers Date of admission: 07/07/23 07:32 Expected date of discharge: 07/07/23 Attending physician: Dong Wilson Primary care physician: Stated None Hospital Course: Chief Complaint: Weakness This is a pleasant 82-year-old patient, follows with visiting physician Dr. Morelos. Chronic stable medical conditions include CHF, dementia, GERD, hypertension, hyperlipidemia, cognitive impairment, anxiety depression. Patient is not the best of historians. Has a public guardian. Non-STEMI in May of this year. Not felt to be a candidate for invasive procedure. Patient in the hospital from June 26 through June. Presented with maroon stools. Had at least 2 3 episodes of bleeding here. EGD was unremarkable. Patient declined colonoscopy by Dr. Nisa Rainey at least on 2 occasions. I spoke to the legal guardian's office. It was decided to let it go. Patient was discharged to [facility]. Patient was returned to the ER yesterday. He vomited x 1 yesterday. He was not really able to ambulate hence they sent him for increased weakness. Patient's hemoglobin this morning 9.9. It was 9.2 when he was discharged. Patient still is at baseline he does walk with support. Oftentimes his leg gives way. Denies any abdominal pain. He ate his breakfast this morning. July 06: Eating better. Patient walked 6 feet with a rolling walker with PT. Discussed with social media developer And the liaison from [facility]. Patient has been accepted. For rehab Discussion and discharge planning more than 35 minutes Social history: Lives at a [facility]. Denies smoking. States takes 4-5 drinks a week. Physical examination: VITAL SIGNS: 97.5, 78, 16, 124 x 75, 92% room air GENERAL:, comfortable EYES: Pupils equal. Conjunctiva sean l. HEENT: External appearance of nose and ears normal, oral cavity grossly normal. NECK: JVD not raised; masses not palpable. HEART: First and second heart sounds are normal; no edema. LUNGS: Respiratory rate normal; clear to auscultation. ABDOMEN: Soft, nontender, liver spleen not palpable, no masses palpable. PSYCH: Able to answer simple questions but forgetful l. MUSCULOSKELETAL:No Clubbing/cyanosis;muscles-grossly intact. OA INVESTIGATIONS, reviewed in the clinical context: July 05: White count 9.3 hemoglobin 9.9 platelets 295 potassium 3.7 BUN 17 creatinine 1.28 AG tracing normal sinus rhythm. Nonspecific ST-T wave changes. Previous labs July 03: Hemoglobin 9.2 creatinine 1.39 Assessment plan: -Acute on chronic medical debility. Patient was somewhat unsteady on his feet at the baseline with right leg some times giving way as per the patient. Now upon discharge patient is very weak. Patient did drop his hemoglobin not enough to be transfused. And patient was in bed in the hospital. All these have added to increase debility. Patient will benefit from physical therapy and possible rehab PT OT. For inpatient rehab -Recent GI bleeding the patient was recently been on aspirin and Plavix. With recurrent maroon stools.: Resolved Patient had refused colonoscopy at least on 2 occasion. Legal guardian's office was informed. EGD was unremarkable. Was seen by Dr. Nisa Rainey PPI Aspirin. -Acute GI blood loss anemia from recent bleed Follow H&H -CAD with recent non-ST elevation [place], May 2023 Aspirin -Chronic congestive heart failure from CAD. Diastolic dysfunction EF 50%: Stable -Depression and anxiety Wellbutrin 100 mg a day -Chronic kidney disease stage III likely nephrosclerosis -Hypothyroid Levothyroxine 25 mcg a day -Severe cognitive impairment from late onset Alzheimer's dementia -GERD PPI -Essential hypertension Toprol-XL -Has a legal guardian. William Yeung. [phone]. [phone] -Full code Dispo patient: [facility] for inpatient rehab Past Medical History Past Medical History: Heart Failure, CVA/TIA, Dementia, GERD/Reflux, Hyperlipidemia, Hypertension, Memory Impairment, Pneumonia Additional Past Medical History / Comment(s): . History of Any Multi-Drug Resistant Organisms: None Reported Past Surgical History: No Surgical Hx Reported Past Psychological History: Anxiety, Depression Smoking Status: Never smoker Past Alcohol Use History: None Reported Past Drug Use History: None Reported Plan - Discharge Summary Discharge Rx Participant: No New Discharge Prescriptions: Continue Levothyroxine Sodium 25 mcg PO DAILY@0800 Rivastigmine Tartrate [Exelon] 4.5 mg PO BID@799,1999 Atorvastatin [Lipitor] 80 mg PO HS@1999 Ammonium Lactate Cream [Lac-Hydrin 12% Cream] 1 applic TOPICAL BID@08,1999 Acetaminophen Tab [Tylenol] 650 mg PO BID@08,1999 Sennosides/Docusate Sodium [Senna-S 8.6-50 mg Tablet] 2 tab PO BID@08,1999 Lidocaine-Hydrocortisone 3-0.5% Rectal Cream 1 applic RECTAL QID PRN PRN Reason: Irritation Cranberry 450mg 450 mg PO BID@08,1999 Menthol-Zinc Oxide Oint [Calmoseptine Ointment] 1 applic TOPICAL DAILY PRN PRN Reason: Rash Phenylephrine HCl/[place] Butter [Preparation H Suppository] 1 supp RECTAL QID PRN PRN Reason: rectal pain polyethylene glycoL 3350 [Miralax] 17 gm PO DAILY PRN PRN Reason: Constipation Metoprolol Succinate (ER) [Toprol XL] 12.5 mg PO DAILY@0800 Divalproex [Depakote] 250 mg PO DAILY@1400 Cholecalciferol [Vitamin D3 (125 Mcg = 5000 Iu)] 125 mcg PO DAILY@0800 Aspirin EC [Ecotrin Low Dose] 81 mg PO DAILY@0800 Ascorbic Acid [Vitamin C] 1,000 mg PO BID@08,1999 buPROPion [Wellbutrin] 100 mg PO DAILY@0800 Liquacel 30 ml PO BID@08,1999 Albuterol Inhaler [Ventolin Hfa Inhaler] 2 puff INHALATION RT-Q4H PRN PRN Reason: Shortness Of Breath Or Wheezing Cyanocobalamin [Vitamin B-12 Injection] 1,000 mg SQ Q30D Pantoprazole [Protonix] 40 mg PO DAILY@0800 Discharge Medication List Atorvastatin [Lipitor] 80 mg PO HS@199906/11/23 [History] Divalproex [Depakote] 250 mg PO DAILY@1400 06/11/23 [History] Levothyroxine Sodium 25 mcg PO DAILY@0800 06/11/23 [History] Rivastigmine Tartrate [Exelon] 4.5 mg PO BID@08,199906/11/23 [History] Acetaminophen Tab [Tylenol] 650 mg PO BID@0800,199906/12/23 [History] Ammonium Lactate Cream [Lac-Hydrin 12% Cream] 1 applic TOPICAL BID@08,199906/12/23 [History] Ascorbic Acid [Vitamin C] 1,000 mg PO BID@0800,199906/12/23 [History] Aspirin EC [Ecotrin Low Dose] 81 mg PO DAILY@79906/12/23 [History] Cholecalciferol [Vitamin D3 (125 Mcg = 5000 Iu)] 125 mcg PO DAILY@79906/12/23 [History] Cranberry 450mg 450 mg PO BID@799,199906/12/23 [History] Lidocaine-Hydrocortisone 3-0.5% Rectal Cream 1 applic RECTAL QID PRN 06/12/23 [History] Liquacel 30 ml PO BID@799,199906/12/23 [History] Sennosides/Docusate Sodium [Senna-S 8.6-50 mg Tablet] 2 tab PO BID@799,199906/12/23 [History] buPROPion [Wellbutrin] 100 mg PO DAILY@79906/12/23 [History] Albuterol Inhaler [Ventolin Hfa Inhaler] 2 puff INHALATION RT-Q4H PRN 06/27/23 [History] Menthol-Zinc Oxide Oint [Calmoseptine Ointment] 1 applic TOPICAL DAILY PRN 06/27/23 [History] Metoprolol Succinate (ER) [Toprol XL] 12.5 mg PO DAILY@79906/27/23 [History] Phenylephrine HCl/[place] Butter [Preparation H Suppository] 1 supp RECTAL QID PRN 06/27/23 [History] polyethylene glycoL 3350 [Miralax] 17 gm PO DAILY PRN 06/27/23 [History] Cyanocobalamin [Vitamin B-12 Injection] 1,000 mg SQ Q30D 07/05/23 [History] Pantoprazole [Protonix] 40 mg PO DAILY@79907/05/23 [History] Follow up Appointment(s)/Referral(s): None,Stated [Primary Care Provider] - 1-2 days
[2023-07-07 14:20] VITALS: BP 151/94; RESP 18; TEMP 97.3
== END 2023-07-07 15:59 | DRG 378 ==
LOC: EC 17:14 → 6NMEDSUR 21:16 → OBSVTOIN 07-07 07:32
PROVIDERS: ADMIT Hospitalist; ATTEND Hospitalist
DX: K92.2 Gastrointestinal hemorrhage, unspecified (principal); D62 Acute posthemorrhagic anemia; I50.32 Chronic diastolic (congestive) heart failure; I13.0 Hypertensive heart and chronic kidney disease with heart failure and stage 1 through stage 4 chronic kidney disease, or unspecified chronic kidney disease; E78.5 Hyperlipidemia, unspecified; F32.A Depression, unspecified; K21.9 Gastro-esophageal reflux disease without esophagitis; N18.30 Chronic kidney disease, stage 3 unspecified; E03.9 Hypothyroidism, unspecified; G30.1 Alzheimer's disease with late onset; F02.C0 Dementia in other diseases classified elsewhere, severe, without behavioral disturbance, psychotic disturbance, mood disturbance, and anxiety; Z53.20 Procedure and treatment not carried out because of patient's decision for unspecified reasons; I25.2 Old myocardial infarction; Z79.82 Long term (current) use of aspirin; Z79.890 Hormone replacement therapy; Z79.899 Other long term (current) drug therapy
CPT/HCPCS: 36415; 80053; 82140; 82272; 83690; 84484; 85025; 85610; 85730; 86850; 86900; 86901; 93005; 96361; 96374; 96375; 99285